=== PATIENT | male | born 1940 | race Caucasian/White ===

== ENCOUNTER 2019-07-27 18:29 | Inpatient (IN) | payer OTHER ==
[~2019-07-27] VITALS: Ht 170.2 cm; Wt 81.2 kg
[~2019-07-27 18:29] MED LIST: ASPIRIN81 M2 PO; FISH OIL 1,0001 EAC5 PO; GLUCOPHAGE500 MG PO; MULTIVITAMINS PO; PRAVASTATIN SOD20 MG PO; PRILOSEC 20 MG20 MG PO
[2019-07-27 18:39] VITALS: BP 129/51
[2019-07-27 19:02] LABS: URINE BLOOD 1+ (Negative); URINE CLARITY CLEAR; URINE COLOR YELLOW; URINE GLUCOSE-RANDOM* NEGATIVE (Negative); URINE KETONES TRACE (Negative); URINE LEUKOCYTES-REFLEX NEGATIVE (Negative); URINE NITRITE-REFLEX NEGATIVE (Negative); URINE PROTEIN (DIPSTICK) 1+ (Negative); URINE SPECIFIC GRAVITY 1.025 (1.005-1.035); URINE UROBILINOGEN 0.2 E.U./dl (0.2-1.0)
[2019-07-27 19:05] LABS: ICTOTEST (BILI CONFIRMATORY) Negative (Negative); URINE BILIRUBIN NEGATIVE (Negative)
[2019-07-27 19:13] LABS: SQUAMOUS None Seen /LPF (0-3); URINE RBC 0-2 Rare /HPF (0-2); URINE WBC-REFLEX 0-5 Rare /HPF (0-5)
[2019-07-27 19:14] LABS: FINE GRANULAR CASTS 0-3 Few /LPF (None Seen); HYALINE CASTS 0-3 Few /LPF (None Seen)
[2019-07-27 19:25] LABS: CRYSTALS None Seen /LPF (None Seen)
[2019-07-27 20:00] LABS: HEMATOCRIT 29.3 % (42.0-52.0); HEMOGLOBIN 9.6 gm/dL (14.0-18.0); MCH 30.4 pg (26.0-34.0); MCHC 32.7 g/dL (28.0-37.0); MCV 92.9 fL (80.0-100.0); PLATELET COUNT 418 thou/uL (150-400); RBC 3.16 mil/uL (4.50-6.00); RDW 13.9 % (10.5-14.5)
[2019-07-27 20:15] LABS: CALCIUM 9.3 mg/dL (8.5-10.1); CREATININE 2.3 mg/dL (0.7-1.3); POTASSIUM 4.2 mmol/L (3.5-5.1)
[2019-07-27 20:18] LABS: ALBUMIN 2.5 g/dL (3.4-5.0); TOTAL BILIRUBIN 0.6 mg/dL (<0.1-1.0); TOTAL PROTEIN 7.1 g/dL (6.4-8.2)
[2019-07-27 20:20] LABS: ABSOLUTE NEUTROPHILS 7.4 thou/uL (1.4-8.2)
[2019-07-27 22:45] VITALS: BP 125/56
[2019-07-27 23:00] VITALS: BP 134/64
[2019-07-27] MEDS ORDERED: PROTONIX40 M2 PO (23:42)
[2019-07-27] MEDS ORDERED: FLOMAX0.4 MG PO ×2 (23:44→23:45)
[2019-07-27] MEDS ORDERED: GLIMEPIRIDE1 MG PO (23:45)
[2019-07-27] MEDS ORDERED: AVAPRO 150 MG150 M1 PO (23:46)
[2019-07-27] MEDS ORDERED: TRAZODONE HCL50 MG PO (23:47)
[2019-07-27] MEDS ORDERED: VITAMIN D250 MCG PO (23:49)
[2019-07-28] VITALS (9 sets, daily range): BP systolic 102–153; BP diastolic 50–71
--- NOTE | 2019-07-28 04:24 | NUR ---
PT. ARRIVED AT FLOOR AROUND 2300; AOX4; ABLE TO AMBULATE FROM STRETCHER TO BED WITH ASSISTANCE; LIMPING; ST. NOT USING CANE OR WALKER AT HOME TO AMBULATE; EXPLAINED LIMPING IS DUE TO PAIN OVER L. ANKLE PAIN; ASSESSMENT & ADMISSION PERFORMED; HOME MED UPDATE; ANSWER BACK "NO" WHEN ASKED IF HAVE ANY PAIN; HS MEDICATION GIVEN; ON ISOLATION; PT. ABLE TO REST WITH EYES CLOSED AFTER 0100; MONITORING; ASSESSMENT CHARGED; FOLLOWING POC; WILL PASS ON REPORT.
[2019-07-28 06:34] LABS: HEMATOCRIT 27.6 % (42.0-52.0); MCH 30.5 pg (26.0-34.0); MCHC 32.6 g/dL (28.0-37.0); MCV 93.6 fL (80.0-100.0); RBC 2.95 mil/uL (4.50-6.00); RDW 13.9 % (10.5-14.5); WBC 8.9 thou/uL (4.0-11.0)
[2019-07-28 06:43] LABS: CALCIUM 8.5 mg/dL (8.5-10.1); POTASSIUM 3.7 mmol/L (3.5-5.1)
[2019-07-28 11:00] LABS: HEMATOCRIT 26.9 % (42.0-52.0)
--- NOTE | 2019-07-28 17:18 | NUR ---
ASSUMED CARE AT SHIFT CHANGE, ALERT AND ORIENTED X4. PATIENT HAD X3 LOOSE MUSCUSY AND BLOODY, SAMPLE SENT, AND MD NOTIFIED. C/O ABD PAIN AND MEDICATED NEEDED. HR 48-171, EKG WAS DONE AND DR ENGLAND CONSULTED AND NEW ORDERS RECIEVED. AND WILL CONTINUE WITH POC.
[2019-07-29] VITALS (8 sets, daily range): BP systolic 113–134; BP diastolic 39–79
--- NOTE | 2019-07-29 03:54 | NUR ---
RECEIVED PT'S CARE AROUND 193; PT. ON BED; AOX4; NO C/O PAIN; NO SOB; PULSE BELOW 100s; EPISODES OF INCREASE HR; PHYSICIANS AWARED; CARDIOLOGY ON BOARD; HEPARIN GTT RUNNING AT 11.99 UNITS/KG/HR; AROUND 194 PT'S HR INCREASE & SUSTAIN ON THE 140s; CARDIOLOGY CONTACTED; ORDERS RECEIVED; SBP ABOVE 100; NO C/O SOB; DIZZINESS; OR PALPITATIONS; CARDIZEM TYTRATE PER PROTOCOL; RE-ASSESMENT PT's HR ON THE 120s-140s; AROUND 2300 PT'S HR BETWEEN 100s-160s; FREQUENTLY EVENTS OF ST; HR ON THE 150s; CARDIOLOGY CONTACTED; ORDERS RECEIVED; CHECK CHARTING; AMIODARONE BOLUS STARTED; RE-ASSESSMENT PT'S HR BELOW 100s; HEPARIN TITRATE PER CHART; THROUGH THE NIGHT PT. DID NOT C/O SOB; PALPITATIONS OR DIZZINESS; AROUND 0400 PT'S HR ABOVE 100s; 110s- 120s; DOES NOT SUSTAIN; MONITORING; ASSESSMENT CHARGED; FOLLOWING POC; WILL PASS ON REPORT.
--- NOTE | 2019-07-29 11:40 | EKG ---
[address] [address] ELECTROCARDIOGRAM REPORT Name: RYAN SADLER Room #: 214-P ADM IN M.R.#: [id number] Admission: 07/27/19 Attend Phys: Lesli Greer Discharge: Date of : 38 Report #: [id number] THIS REPORT FOR: //name// 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 : 1940 Requested By: Lesli Greer Order Number: [id number] MD: Samy Boothe Measurements Intervals [place] Rate: 140 P: NE: QRS: -40 QRSD: 95 T: 115 QT: 285 QTc: 435 Interpretive Statements Atrial fibrillation with rapid V-rate Left axis deviation Repolarization abnormality, prob rate related Compared to ECG 09/11/2012 06:50:17 Left-axis deviation now present Early repolarization now present Sinus rhythm no longer present Sinus arrhythmia no longer present Electronically Signed On 07-29-2019 11:40:27 CDT by Samy Boothe [email or web address] <ELECTRONICALLY SIGNED> By: Samy Boothe MD 07/29/19 1140 1637 1637 Samy Boothe MD /EPI
--- NOTE | 2019-07-29 14:14 | NUR ---
ASSUMED CARE AT SHIFT CHANGE, ALERT AND ORIENTED X4. HR REMAINS 70-140/ MIN AND PATIENT REMAINS ON AMIO AND HEPARIN DRIP. PATIENT C/O PAIN TO LOWER BACK AND RT LEG PAIN MEDICATED, VSS CHARTED AND WILL CONTINUE WITH POC.
[2019-07-30] VITALS (7 sets, daily range): BP systolic 80–103; BP diastolic 47–54
--- NOTE | 2019-07-30 04:07 | NUR ---
ASSUMED PT CARE AROUND 1900. A&OX4. VERY PLEASANT AND COOPERATIVE. C/O LEFT KNEE PAIN. TYLENOL GIVEN AT BEDTIME WITH SOME RELIEF. UP TO BSC A COUPLE TIMES DURING THE NIGHT. TOLERATED WELL. HEPARIN GTT INFUSING PER PROTOCOL. AMIODARONE GTT INFUSED UNTIL AROUND 0130 WHEN PT'S HR DROPPED TO 30S-50S. NOTIFIED DR ENGLAND. AMIODARONE GTT ON HOLD PER DR BARTHOLOMEW. BP STABLE. PT SLEPT MOST OF THE NIGHT. RESP EVEN AND UNLABORED. FALL PRECAUTIONS IN PLACE. PROGRESSING SLOWLY TOWARD POC GOALS. WILL CONTINUE TO MONITOR FURTHER.
[2019-07-30 05:07] LABS: HEMATOCRIT 24.2 % (42.0-52.0); HEMOGLOBIN 8.1 gm/dL (14.0-18.0); MCH 31.6 pg (26.0-34.0); MCHC 33.5 g/dL (28.0-37.0); MCV 94.4 fL (80.0-100.0); RBC 2.57 mil/uL (4.50-6.00); RDW 14.3 % (10.5-14.5); WBC 9.1 thou/uL (4.0-11.0)
[2019-07-30 05:14] LABS: ALBUMIN 1.9 g/dL (3.4-5.0); CALCIUM 8.1 mg/dL (8.5-10.1); POTASSIUM 4.1 mmol/L (3.5-5.1)
--- NOTE | 2019-07-30 07:54 | HC ---
[facility] [address] CONSULTATION Name: RYAN SADLER Room #: 214-P [facility] IN M.R.#: [id number] Admission: 07/27/19 Attend Phys: Lesli Greer Discharge: Date of : 38 Report #: [id number] THIS REPORT FOR: //name// CC: Lesli Bellamy CARDIOLOGY CONSULT INDICATION: Atrial fibrillation. HISTORY OF PRESENT ILLNESS: This is an 79-year-old gentleman with a history of diabetes mellitus, hypertension, hypercholesterolemia, presenting with 1 week duration of abdominal discomfort. He reports having mid to lower abdominal pain for the past 1 week. He also describes a recent onset of diarrhea, 3-4 episodes per day. The patient denies any history of chest pain, dyspnea, nausea or orthopnea. He was noted to have a temperature several days ago. His CT evaluation is suggestive for diverticulitis. ALLERGIES: PENICILLIN. HOME MEDICATIONS: Include Pravachol 20 mg daily, Glucophage, Protonix, tamsulosin, glimepiride, Avapro 150 daily, and Desyrel. SOCIAL HISTORY: Negative for tobacco use. FAMILY HISTORY: Negative for premature CAD. PAST MEDICAL HISTORY: Diabetes, hypertension, hypercholesterolemia. Denies any history of CVA, AFib or NE. REVIEW OF SYSTEMS: A full 10-point review of systems performed. Only the pertinent positives and negatives are described in the HPI. PHYSICAL EXAMINATION: VITAL SIGNS: Blood pressure 120/60, heart rate is 90 beats per minute. GENERAL APPEARANCE: This is a well-developed, well-nourished male, in no acute distress. HEENT: Normocephalic, atraumatic. NECK: Supple. LUNGS: CTA. CARDIAC: Regular rate and rhythm. S1, S2 positive. ABDOMEN: Soft, nontender. EXTREMITIES: Trace edema. No cyanosis. ECG today reveals atrial fibrillation with a rapid rate, nonspecific ST segment abnormality. [facility] [address] [place] [address] CONSULTATION Name: RYAN SADLER Room #: 214-P ADM IN [facility]#: [id number] Admission: 07/27/19 Attend Phys: Lesli Greer Discharge: Date of : 38 Report #: [id number] LABORATORY VALUES: Hemoglobin is 9.0. C. diff is negative. Sodium is 133, creatinine is 2.0. ASSESSMENT AND PLAN: 1. Atrial fibrillation with a rapid ventricular rate, on the monitor, he has had multiple episodes of paroxysmal atrial fibrillation, converted to sinus rhythm. Interestingly, when the heart rate is greater than 170 beats per minute, he is still clinically asymptomatic. Given his frequent episodes within 24-hour period, we will try to maintain sinus rhythm with amiodarone. He has an elevated CHADS score and anticoagulation is recommended. He does have bloody stools, await clearance from Gastroenterology. He will need an echocardiogram and ischemic evaluation. 3. Abdominal pain/diverticulitis, continue with antibiotics and hydration as per Gastroenterology. 4. Hypertension, stable blood pressure. 5. Diabetes mellitus, check fingersticks and treat appropriately. 6. Acute kidney injury, creatinine of 2.0. Continue with hydration. <ELECTRONICALLY SIGNED> By: Samy Boothe MD 07/30/19 0754 1719 1416 Samy Boothe MD /nt
[2019-07-30 13:23] LABS: HEMATOCRIT 25.3 % (42.0-52.0); HEMOGLOBIN 8.2 gm/dL (14.0-18.0); MCH 30.5 pg (26.0-34.0); MCHC 32.4 g/dL (28.0-37.0); MCV 94.3 fL (80.0-100.0); RBC 2.69 mil/uL (4.50-6.00); RDW 14.4 % (10.5-14.5); WBC 8.2 thou/uL (4.0-11.0)
--- NOTE | 2019-07-30 15:04 | 2DMMODE ---
[facility] [address] [place] [address] 2 D/M-MODE ECHOCARDIOGRAM Name: RYAN SADLER Room #: 214-P [facility] IN ..#: [id number] Admission: 07/27/19 Attend Phys: Lesli Calzada Discharge: Date of : 38 Report #: [id number] THIS REPORT FOR: //name// APPROVED REPORT Study performed: 07/30/2019 13:24:58 EXAM: Comprehensive 2D, Doppler, and color-flow Echocardiogram Patient Location: Bedside Room #: 214 Status: routine BSA: 1.87 HR: 52 bpm BP: 80/52 mmHg Rhythm: Atrial Fibrillation Other Information Study Quality: Adequate Indications Diabetes Atrial Fibrillation Hypertension/HDD 2D Dimensions RVDd: 32.08 mm IVSd: 10.72 (7-11mm) LVOT Diam: 21.22 (18-24mm) LVDd: 44.27 mm PWd: 10.07 (7-11mm) Ascending Ao: 42.63 (22-36mm) LVDs: 27.01 (25-40mm) Aortic Root: 39.22 mm IVC: 26.00 mm Volumes Left Atrial Volume (Systole) Single Plane 4CH: 74.21 mL Single Plane 2CH: 53.32 mL LA ESV Index: 37.00 mL/m2 Aortic Valve AoV Peak Pako.: 1.40 m/s AO Peak Gr.: 7.82 mmHg LVOT Max P.78 mmHg LVOT Max V: 0.97 m/s ANTHONY Vmax: 2.46 cm2 Pulmonary Valve PV Peak Pako.: 0.89 m/s PV Peak Gr.: 3.19 mmHg [facility] [address] [place] [address] 2 D/M-MODE ECHOCARDIOGRAM Name: RYAN SADLER Room #: 214-P ADM IN [facility]#: [id number] Admission: 07/27/19 Attend Phys: Lesli Calzada Discharge: Date of : 38 Report #: [id number] Tricuspid Valve TR Peak Pako.: 2.77 m/s TR Peak Gr.: 30.62 mmHg PA Pressure: 41.00 mmHg Left Ventricle The left ventricle is normal size. There is normal LV segmental wall motion. There is normal left ventricular wall thickness. The left ventricular systolic function is normal. The left ventricular ejection fraction is within the normal range. LVEF is 60-65%. Grade II - pseudonormal filling dynamics. Right Ventricle The right ventricle is normal size. The right ventricular systolic function is normal. Atria Left atrium is dilated. Right atrium is at the upper limits of normal. Aortic Valve The aortic valve is normal in structure. Trace aortic regurgitation. There is no aortic valvular stenosis. Mitral Valve The mitral valve is normal in structure. Mild mitral regurgitation. No evidence of mitral valve stenosis. Tricuspid Valve The tricuspid valve is normal in structure. There is mild tricuspid regurgitation. Estimated PAP 41 mmHg. There is mild-moderate pulmonary hypertension. Pulmonic Valve The pulmonary valve is normal in structure. Trace pulmonic regurgitation. Great Vessels The aortic root is normal in size. IVC is dilated and collapses <50% with inspiration. Pericardium There is no pericardial effusion. <Conclusion> [facility] [address] [place] [address] 2 D/M-MODE ECHOCARDIOGRAM Name: RYAN SADLER [place] Room #: 214-P [facility] IN ..#: [id number] Admission: 07/27/19 Attend Phys: Lesli Calzada Discharge: Date of : 38 Report #: [id number] The left ventricle is normal size. There is normal left ventricular wall thickness. The left ventricular systolic function is normal. Grade II - pseudonormal filling dynamics. The right ventricle is normal size. Left atrium is dilated. Trace aortic regurgitation. Mild mitral regurgitation. There is mild tricuspid regurgitation. Estimated PAP 41 mmHg. <ELECTRONICALLY SIGNED> By: Samy Boothe MD 07/30/19 1504 1504 150 Samy Boothe MD /INF
--- NOTE | 2019-07-30 16:03 | NUR ---
ASSUMED CARE AT SHIFT CHANGE, ALERT AND ORIENTED X4. SB ON THE MONITOR AND DENIES ANY CP. BP SOFT AND AMI PO, AND IV DISCONTINUED PER DR ENGLAND INSTRUCTIONS. POOR APPETITE AND MEAT SPECIALIST CONSULTED. AND WILL CONTINUE WITH POC.
--- NOTE | 2019-07-30 18:32 | NUR ---
met with patient, friend present. Patient resides in home alone. All needs on one level. he cont to drive. Reports 2 years ago. He was using a walker with therapy today and reports he does not have at home. He repors interst in walker for home. Discussed HH care. patient with no preference and agreeable to [facility] care. PCP Dr Rene Bellamy. [facility] following
[2019-07-31 04:17] VITALS: BP 102/50
--- NOTE | 2019-07-31 04:32 | NUR ---
ALERT,ORIENTED.SINUS RHYTHM,SINUS SUSIE.LOW URINE OUTPUT.BLADDER SCANNED POST VOID.HOT WALKER IS AWARE.BEDTIME BLOOD GLUCOSE IS 155.SSI GIVEN.RESTING IN BED.IV FLUIDS INFUSING.WILL MONITOR AND CONTINUE POC.
[2019-07-31 06:03] LABS: HEMATOCRIT 24.9 % (42.0-52.0); HEMOGLOBIN 8.3 gm/dL (14.0-18.0); MCHC 33.1 g/dL (28.0-37.0); MCV 93.6 fL (80.0-100.0); RBC 2.66 mil/uL (4.50-6.00); RDW 14.6 % (10.5-14.5); WBC 8.4 thou/uL (4.0-11.0)
[2019-07-31 06:21] LABS: CREATININE 2.7 mg/dL (0.7-1.3); PHOSPHORUS 3.9 mg/dL (2.5-4.9); POTASSIUM 4.1 mmol/L (3.5-5.1)
[2019-07-31 08:37] VITALS: BP 106/52
[2019-07-31 12:26] VITALS: BP 103/45
[2019-07-31 12:29] VITALS: BP 103/45
--- NOTE | 2019-07-31 12:30 | NUR ---
FAXED REFERRAL TO [facility] SPOKE WITH GONZALO IN INTAKE SHE RECEIVED REFERRAL AND CAN ACCEPT AT DISCHARGE. DP TO FOLLOW.
[2019-07-31 16:00] VITALS: BP 118/58
--- NOTE | 2019-07-31 20:00 | NUR ---
ASSEMENT CHARTED. ALERT AND ORIENTED X4. PATIENT WAS GIVEN 2L FLUID BOLUS AND URINE OUTPUT REMAINS SCANT (350CC). MEDICATED FOR PAIN INDICATED. WALKED THE HALLWAYS X2 WITH SB ASSIST. AND WILL CONTINUE WITH POC.
[2019-07-31 20:48] VITALS: BP 108/66
[2019-08-01 04:55] VITALS: BP 120/60
[2019-08-01 05:23] LABS: HEMATOCRIT 23.5 % (42.0-52.0); HEMOGLOBIN 7.7 gm/dL (14.0-18.0); MCH 30.7 pg (26.0-34.0); MCV 93.2 fL (80.0-100.0); RBC 2.52 mil/uL (4.50-6.00); RDW 14.2 % (10.5-14.5); WBC 9.4 thou/uL (4.0-11.0)
[2019-08-01 05:32] LABS: ALBUMIN 1.8 g/dL (3.4-5.0); CALCIUM 7.9 mg/dL (8.5-10.1); CREATININE 2.6 mg/dL (0.7-1.3); PHOSPHORUS 3.1 mg/dL (2.5-4.9); POTASSIUM 3.9 mmol/L (3.5-5.1)
--- NOTE | 2019-08-01 05:41 | NUR ---
A/O X 3.PAIN FAIRLY CONTROLLED.URINE OUTPUT LOW.BLADDER SCAN SHOWS >350.CHIEF ACCOUNTANT WAS INFORMED AND SAID TO JUST MONITOR PATIENT URINARY OUTPUT SINCE HE'S VOIDING ANYWAY.SINUS RHYTHM.WILL MONITOR AND CONTINUE POC.
[2019-08-01 07:31] VITALS: BP 117/71
[2019-08-01 11:44] VITALS: BP 118/62
[2019-08-01 16:06] LABS: IgA 268 mg/dL (61-437); IgG 1201 mg/dL (700-1600); IgM 132 mg/dL (15-143)
[2019-08-01 16:58] VITALS: BP 116/68
--- NOTE | 2019-08-01 18:06 | NUR ---
ASSESSMENT CHARTED. PT ALERT AND ORIENTED. RECEIVED PRN PAIN MED WITH PARTIAL RELIEF. HAD HIGH HR THIS AFTERNOON. MAR PALMER NOTIFIED. ORDERS RECEIVED. WILL CONTINUE TO MONITOR.
[2019-08-01 19:45] VITALS: BP 136/66
[2019-08-02 03:57] VITALS: BP 122/55
[2019-08-02 05:38] LABS: HEMOGLOBIN 7.8 gm/dL (14.0-18.0); MCHC 33.6 g/dL (28.0-37.0); MCV 92.3 fL (80.0-100.0); RBC 2.5 mil/uL (4.50-6.00); RDW 14.3 % (10.5-14.5); WBC 10.1 thou/uL (4.0-11.0)
[2019-08-02 06:02] LABS: ALBUMIN 1.7 g/dL (3.4-5.0); CALCIUM 7.7 mg/dL (8.5-10.1); MAGNESIUM 1.6 mg/dL (1.8-2.4); PHOSPHORUS 2.8 mg/dL (2.5-4.9)
[2019-08-02 08:01] VITALS: BP 130/62
--- NOTE | 2019-08-02 08:24 | NUR ---
ASSUME CARE 1900. PT/VITALS STABLE. COMPLAINS OF GENERALIZED WEAKNESS WITH PAIN IN BILAERAL ANKLES. EDEMA NOTED IN WILBERTO FEET AND ANKLES. ASSESSMENT CHARTED. PROGRESSING SLOWLY WITH POC. MODERATE URINE OUTPUT. LARGE BM NOTED THIS AM. PLAN IS TO CONTINUE ON LOW FIBER DIET, MONIOR BLOOD SUGAR, AND CONTINUE ON ABX. WILL CONTINUE TO MONITOR AND FOLLOW WITH POC
[2019-08-02 11:31] VITALS: BP 131/71
[2019-08-02 13:11] LABS: URIC ACID* 7.4 mg/dL (2.6-7.2)
[2019-08-02 16:09] LABS: KAPPA FREE LIGHT CHAINS 107.3 mg/L (3.3-19.4); KAPPA/LAMBDA RATIO 1.3 (0.26-1.65); LAMBDA FREE LIGHT CHAINS 82.6 mg/L (5.7-26.3)
--- NOTE | 2019-08-02 16:13 | NUR ---
ASSESSMENTS AND INTERVENTIONS DOCCUMENTED. PATIENT COMPLAINING OF ANKLE SWELLING. HAYES SEEING PATIENT AND CONSULT PLACED FOR ORTHOPEDICS. PATIENT EDUCATED ON PLAN OF CARE. PATIENT REMAINS TO REST WITH NO CONCERNS.
--- NOTE | 2019-08-02 16:26 | EKG ---
[address] [address] ELECTROCARDIOGRAM REPORT Name: MARY SADLERMarbin Samano Room #: 214-P ADM IN M.R.#: [id number] Admission: 07/27/19 Attend Phys: Lesli Greer Discharge: Date of : 38 Report #: [id number] THIS REPORT FOR: //name// [facility] Test Date: 2019-08-01 Test Time: 17:13:52 Pat Name: RYAN SADLER Department: Room: 214 P Gender: M Nurse: Josh VIDES : 1940 Requested By: Nalini Huffman Order Number: [id number] MD: Tommie Cope Measurements Intervals [place] Rate: 124 P: 247 NM: 86 QRS: -19 QRSD: 99 T: 102 QT: 319 QTc: 459 Interpretive Statements Atrial fibrillation Isolated pvc Electronically Signed On 08-02-2019 16:26:13 CDT by Tommie Cope [email or web address] <ELECTRONICALLY SIGNED> By: Tommie Cope MD 08/02/19 1626 1713 1713 Tommie Cope MD /TOO
[2019-08-02 16:59] VITALS: BP 122/61
[2019-08-02 17:31] VITALS: BP 112/58
[2019-08-02 21:18] VITALS: BP 129/62
[2019-08-03 04:55] VITALS: BP 122/62
--- NOTE | 2019-08-03 06:13 | NUR ---
ASSUME CARE 1900. PT/VITAL STABLE. INTERMITTTENT PAIN NOTED IN BLE WITH SEVERE SWELLING. ADEQUATE REST THROUGH THE NIGHT. SR/SA ON MONITOR WITH HR IS 70s. ASSESSMENT CHARTED. PROGRESSING MODERATELY WITH POC. PLAN IS TO CONTINUE WITH ABX AND CONSULT ORTHO FOR FURTHER EVAL OF SWELLING AND PAIN IN BILATERAL FEET AND ANKLE. WILL CONTINUE TO MONITOR ANF FOLLOW WITH POC
[2019-08-03 06:19] LABS: ALBUMIN 1.9 g/dL (3.4-5.0); CALCIUM 8.5 mg/dL (8.5-10.1); CREATININE 1.9 mg/dL (0.7-1.3); POTASSIUM 4.4 mmol/L (3.5-5.1); TOTAL BILIRUBIN 0.8 mg/dL (<0.1-1.0); TOTAL PROTEIN 5.9 g/dL (6.4-8.2)
[2019-08-03 08:50] VITALS: BP 142/87
[2019-08-03 11:43] VITALS: BP 154/71
[2019-08-03 14:09] LABS: GLOBULIN TOTAL 3.4 g/dL (2.2-3.9); M-SPIKE Not Observed g/dL (Not Observed)
--- NOTE | 2019-08-03 16:26 | NUR ---
SNF vs HH recommendation discussed with the pt at bedside. Pt agreeable due to le swelling and pain. Possible gout. [facility] list reviewed with the pt. He is interested in [facility] as a first choice. They can accept this weekend and submitted for ins auth. Pt is aware that insurance may not respond until Tuesday. Will follow.
[2019-08-03 17:29] VITALS: BP 134/83
--- NOTE | 2019-08-03 19:17 | HC ---
[facility] [place] [address] [place] [address] CONSULTATION Name: RYAN SADLER Room #: 214-P [facility] IN M.R.#: [id number] Admission: 07/27/19 Attend Phys: Lesli Greer Discharge: Date of : 38 Report #: [id number] THIS REPORT FOR: //name// CC: Lesli Bellamy DATE OF SERVICE: 08/02/2019 INFECTIOUS DISEASE CONSULTATION REASON FOR CONSULTATION: I was asked to evaluate concerning arthritis and possible infectious etiology. HISTORY OF PRESENT ILLNESS: This is an 79-year-old underlying history of diabetes, hypertension, who was admitted through the Emergency Room with lower abdominal pain for over a week. It had worsened significantly over the past 3 days, associated with diarrhea. He had no blood in his stool. No nausea or vomiting. Pain got very bad up to a 10/10. He had temperature up to 101 degrees. He notes over the last month, he has been anorexic. He has lost weight. Has had no other GI-reported illnesses. Denies any dysuria or frequency. He has had no blood in his stool or urine. He does have some degenerative arthritis complains. He has had low back pain and was scheduled to have MRI scan. Actually, during the MRI evaluation, he was noted to have fever and that prompted further investigation. Since his hospital stay, his abdominal discomfort has resolved. He still has loose stools. Back pain remains about the same. No cough or sputum production. He has developed pain and swelling in his knees, ankles and feet, which has progressed over the last 48 hours. He has been treated with ciprofloxacin and metronidazole for his diverticular disease. He does report PENICILLIN, reaction where he passed out, although he does report that he has taken amoxicillin without issue since that event 40 years ago. MEDICATIONS: As noted on his MAR, which were reviewed including the ciprofloxacin and metronidazole. Prior to his admission, he was on pravastatin, Protonix, tamsulosin, glimepiride, Avapro, Desyrel, vitamin D and fish oil. PAST MEDICAL HISTORY: Hypertension, diabetes, hyperlipidemia, gastroesophageal reflux, bladder outlet obstructive disease. FAMILY HISTORY: Noncontributory. SOCIAL HISTORY: Nonsmoker, no significant alcohol intake. He is a for past 2 years. REVIEW OF SYSTEMS: Ten-point review was negative other than what has been described above. During his hospital stay, he developed acute renal failure. He also was diagnosed with atrial fibrillation and Cardiology service has been [address] [address] CONSULTATION Name: RYAN SADLER Room #: 214-P [facility] IN [facility].#: [id number] Admission: 07/27/19 Attend Phys: Lesli Greer Discharge: Date of : 38 Report #: [id number] assisting in his care. PHYSICAL EXAMINATION: VITAL SIGNS: He is afebrile and hemodynamically stable. He was alert and cooperative. Temperature was 37 degrees, pulse 72, blood pressure 131/71. GENERAL: He had 2+ anasarca. It is noted that he developed acute renal failure and atrial fibrillation during his hospital stay. No rashes or decubiti noted. No palpable adenopathy. EYES: Without scleral icterus. MOUTH: Without mucositis. NECK: Supple. LUNGS: Clear. HEART: Regular, without murmur, gallop or rub. ABDOMEN: Soft, nontender, no hepatosplenomegaly or mass. GENITOURINARY: External genitalia without lesion, although he was edematous. RECTAL: Not performed. EXTREMITIES: With effusion in both knees. He had limited range of motion. Mild tenderness. There is no erythema or warmth. Both ankles were swollen and mildly erythematous and warm to the touch. They were tender to palpation, with limited range of motion. He had tenderness to his mid feet bilaterally. Not much tenderness in his MCP joints. His arms, including shoulders, elbows and wrists, were unremarkable. He had mild back tenderness to the mid lower spine region. NEUROLOGIC: Cranial nerves were intact. Strength in his upper and lower extremities was normal, with sensation intact. Mood was normal LABORATORY STUDIES: Blood cultures are negative. Sodium 131, potassium 4, bicarbonate of 16, creatinine 2. Hemoglobin 7.8, WBC 10, platelet count 365,000. Immunoelectrophoresis is pending. IgG was 1200, IgA 268, IgM 132. Stool culture was negative. Urine culture, no growth. IMPRESSION: 1. 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 Still possible this could be crystal in etiology. Doubt primary infection, although post-infectious is considered. 2. Diverticulitis, improved. 3. Acute kidney injury. 4. Diabetes. 5. Atrial fibrillation. 6. Hypertension. 7. Anemia. 8. Doubt he has a true PENICILLIN allergy considering he tolerates amoxicillin. RECOMMENDATIONS: We will change from ciprofloxacin and continue with cefdinir plus metronidazole for his diverticular disease. We will check serologic [facility] [address] [place] [address] CONSULTATION Name: RYAN SADLER Room #: 214-P [facility] IN M.R.#: [id number] Admission: 07/27/19 Attend Phys: Lesli Greer Discharge: Date of : 38 Report #: [id number] studies, uric acid. Can tap his knee for evaluation for crystals and will treat with anti-inflammatory therapy. Case was discussed with attending. <ELECTRONICALLY SIGNED> By: Jayesh Fierro MD 08/03/19 1917 1253 0218 Jayesh Fierro MD /nt
[2019-08-03 20:00] VITALS: BP 106/65
[2019-08-03 20:13] VITALS: BP 108/65
--- NOTE | 2019-08-03 20:18 | NUR ---
ASSUMED CARE PT AT SHIFT CHANGE. ASSESSMENTS CHARTED. MEDS GIVEN PER DEC. PT ALERT AND ORIENTED, VSS, C/O PAIN BLE, PAIN MEDS GIVEN PER DEC. O2 SATS WNL ON ROOM AIR. AT APPROX 1500 PT HR AFIB RVR, DR ENGLAND NOTIFIED, ORDERS RECEIVED FOR AMIO BOLUS AND AMIO DRIP PER PROTOCOL. HEART RATE MANAGED. AT APPROX 1730 HR AFIB RVR AGAIN, SUSTAINING 130S-140S, WITH SHORTNESS OF BREATH. 3L O2 PUT ON PT TO EASE BREATHING WITH RELIEF. CARDIOLOGY NOTIFIED, ORDERS RECEIVED PER DR BOLES FOR ANOTHER AMIO BOLUS AND 5MG IV LOPRESSOR, AND CONTINUE WITH AMIO AFTER. HR BELOW 120 FOLLOWING AMIO BOLUS, METOPROLOL HELD PER PARAMETERS, NIGHT NURSE NOTIFIED. PT SEEN BY DR HARDING THIS SHIFT, RIGHT KNEE JOINT AND LEFT ANKLE ASPIRATED FOR FLUID AND SENT TO LAB. PT CURRENTLY RESTING COMFORTABLY IN BED. REPORT PASSED ON TO NIGHT NURSE.
[2019-08-04 04:45] VITALS: BP 99/65
[2019-08-04 04:55] VITALS: BP 98/71
--- NOTE | 2019-08-04 05:24 | NUR ---
ASSUMED PT CARE AT 1900. PT WAS SLEEPING AND WHEN AWAKENED HAD NO C/O PAIN. AMIO DRIP WAS CONT AT HALF OF DOSE PER ORDER. GAVE LOPRESSOR PER ORDER. PT CONVERTED TO SB AROUND [id number]. PT STAYED SUSIE THRU NIGHT AND THEN CONVERTED BACK TO AFIB. PT C/O NO PAIN STILL AND VSS. WILL CONTINUE TO MONITOR PER POC.
[2019-08-04 07:26] LABS: ALBUMIN 1.7 g/dL (3.4-5.0); CALCIUM 8.4 mg/dL (8.5-10.1); CREATININE 1.8 mg/dL (0.7-1.3); PHOSPHORUS 3.6 mg/dL (2.5-4.9); POTASSIUM 4.8 mmol/L (3.5-5.1)
[2019-08-04 08:00] VITALS: BP 115/80
--- NOTE | 2019-08-04 17:00 | NUR ---
PT CARE ASSUMED APPROX 0700. ASSESSMENT CHARTED. PT DENIES PAIN AND SOA. HR BETWEEN 40s AND 110s, SR AND AFIB RVR. MEDICINE INTERVENTIONS MANAGING. AMIO GTT STOPPED EARLIER WHEN PT CONVERTED TO SR. REMAINS SR/SB AT THIS TIME. NEW ORDERS FROM DR BOLES GIVEN TO DC GTT. PT ASYMPTOMATIC ALL SHIFT OF SUSIE AND TACHYCARDIA. VS OTHERWISE STABLE. PT UP TO CHAIR WITH MOD ASSIST. PT REPORTS FEELING WEAKER THAN USUAL. BS ELEVATED. POC UPDATED FOR BETTER MANAGEMENT OF HYPERGLYCEMIA. PT DENIES QUESTIONS AND CONCERNS REGARDING POC. NO DISTRESS NOTED.
[2019-08-04 20:57] VITALS: BP 110/53
[2019-08-05 05:00] VITALS: BP 127/54
[2019-08-05 05:14] LABS: ALBUMIN 1.7 g/dL (3.4-5.0); CALCIUM 8.4 mg/dL (8.5-10.1); CREATININE 1.7 mg/dL (0.7-1.3); POTASSIUM 3.9 mmol/L (3.5-5.1)
--- NOTE | 2019-08-05 05:50 | NUR ---
ASSUMED CARE AT 1900. PT ALERT AND ORIENTED. REPORTS RELIEF IN ANKLE PAIN. NO EPISODE OF ABDOMINAL PAIN. PT SINUS SUSIE MOST OF THE NIGHT, RATE IN 50S. DENIES DIZZINESS,SOA, NAUSEA, VOMITING. NO CHEST PAIN REPORTED. OTHER ASSESSMENTS DOCUMENTED. NO FURTHER CONCERNS AT THIS TIME . WILL CONTINUE TO MONITOR.
[2019-08-05 09:27] VITALS: BP 127/59
[2019-08-05 12:28] VITALS: BP 94/56
[2019-08-05 15:50] VITALS: BP 113/65
--- NOTE | 2019-08-05 16:52 | NUR ---
PT CARE ASSUMED APPROX 0700. ASSESSMENT CHARTED. PT DENIES SOA. O2 WEANING HAS BEEN TOLERABLE FOR PT. REPORTS PAIN IN LOWER BACK 5/10. REPORTS ADEQUATE PAIN MANAGEMENT WITH TYLENOL. VSS. BS ELEVATED. MANAGING WITH SSI. WILL CONTINUE TO MONITOR. PT UP TO CHAIR PART OF SHIFT. POLITELY REFUSES TO AMBULATE. DENIES QUESTIONS OR CONCERNS REGARDING POC. NO DISTRESS NOTED.
[2019-08-05 20:15] VITALS: BP 132/62
[2019-08-05 21:07] LABS: HEMATOCRIT 23.6 % (42.0-52.0); HEMOGLOBIN 7.7 gm/dL (14.0-18.0); MCH 30.1 pg (26.0-34.0); MCHC 32.7 g/dL (28.0-37.0); MCV 92.2 fL (80.0-100.0); RBC 2.56 mil/uL (4.50-6.00); RDW 14.9 % (10.5-14.5); WBC 6.4 thou/uL (4.0-11.0)
[2019-08-05 21:20] LABS: CALCIUM 8.4 mg/dL (8.5-10.1); CREATININE 1.7 mg/dL (0.7-1.3); MAGNESIUM 1.8 mg/dL (1.8-2.4); POTASSIUM 4.2 mmol/L (3.5-5.1)
[2019-08-06] VITALS (7 sets, daily range): BP systolic 105–132; BP diastolic 49–75
[2019-08-06 05:47] LABS: HEMATOCRIT 25.6 % (42.0-52.0); HEMOGLOBIN 8.5 gm/dL (14.0-18.0); MCH 30.4 pg (26.0-34.0); MCHC 33.1 g/dL (28.0-37.0); MCV 91.8 fL (80.0-100.0); RBC 2.79 mil/uL (4.50-6.00); WBC 6.9 thou/uL (4.0-11.0)
[2019-08-06 06:21] LABS: ALBUMIN 1.8 g/dL (3.4-5.0); CALCIUM 8.5 mg/dL (8.5-10.1); CREATININE 1.6 mg/dL (0.7-1.3); MAGNESIUM 1.7 mg/dL (1.8-2.4); PHOSPHORUS 2.9 mg/dL (2.5-4.9)
--- NOTE | 2019-08-06 07:55 | NUR ---
PT ALERT AND ORIENTED. REPORTS BACK PAIN. TYLENOL NEEDED GIVEN. PT WENT INTO SINUS TACH DURING THE NIGHT. 5MG IV LOPRESSOR GIVEN. PT HR WAS AROUND 113 WHEN HE SUDDENLY DROPPED INTO 40s. ASYMPTOMATIC. EKG ORDERED FOR THIS MORNING. TYLENOL GIVEN FOR BACK PAIN. AM SHIFT NOTIFIED ABOUT PT CONDITION. WILL CONTINUE TO MONITOR.
--- NOTE | 2019-08-06 09:17 | HC ---
[facility] [place] [place] [address] CONSULTATION Name: RYAN SADLER [place] Room #: 214-P [facility] IN ..#: [id number] Admission: 07/27/19 Attend Phys: Lesli Greer Discharge: Date of : 38 Report #: [id number] THIS REPORT FOR: //name// CC: Lesli Bellamy DATE OF SERVICE: 08/05/2019 CONSULTING PHYSICIAN: Dr. Barrera. REASON FOR CONSULTATION: Uncontrolled type 2 diabetes mellitus. HISTORY OF PRESENT ILLNESS: This is an 79-year-old male patient who was admitted on 07/27/2019 with progressive complaints of diarrhea, a dull achy abdominal pain that was severe at the time of presentation and was later found to have diverticulitis. The patient was admitted for further care and management. He is known to have type 2 diabetes mellitus and has had it for several years. The patient describes his home regimen to consist of metformin twice a day in addition to another oral agent that he could not name, but his chart indicates that he is on glimepiride as well. The patient notes that his blood glucose control is typically rather reasonable at home where he sees blood glucose values mostly in the low 100 mg/dL range without issues of hypoglycemia. The patient has not ever been placed on insulin therapy that he remembers. The patient is not aware of difficulties pertaining to diabetic retinopathy, nephropathy or neuropathy. He is not aware of heart disease or other vascular disease issues. Also, the patient's background is noted for hyperlipidemia, requiring the use of pravastatin at home in addition to hypertension that is treated with irbesartan. REVIEW OF SYSTEMS: CONSTITUTIONAL: Fatigue, tiredness, intermittent subjective fever and chills. HEENT: Negative for sore throat, sinus pain, ear drainage. PULMONARY: Occasional shortness of breath and cough, but no hemoptysis. CARDIAC: No chest pain, palpitations, lower extremity edema. GASTROINTESTINAL: As noted above, the patient has been dealing with difficulties pertaining to diverticulitis including having to experience the symptoms of abdominal pain, diarrhea. NEUROLOGY: Negative for loss of consciousness, seizure activity or headaches. DERMATOLOGY: Negative for skin rash, ulceration or other major abnormalities. PSYCHIATRIC: Negative for hallucinations, delusions. MUSCULOSKELETAL: Occasional joint and muscle aches. Otherwise, review of systems noncontributory other than those mentioned in HPI. [address] [address] CONSULTATION Name: RYAN SADLER Room #: 214-[facility] IN M.R.#: [id number] Admission: 07/27/19 Attend Phys: Lesli Greer Discharge: Date of : 38 Report #: [id number] PAST MEDICAL HISTORY: 1. Type 2 diabetes mellitus. 2. Hypertension. 3. Hyperlipidemia. 4. Benign prostatic hypertrophy. 5. Vitamin D deficiency. 6. Gastroesophageal reflux disease. PAST SURGICAL HISTORY: Right hand surgery. OUTPATIENT MEDICATIONS: Pravastatin 20 mg daily, metformin 500 mg q.p.m., pantoprazole 40 mg daily, Flomax 0.4 mg q.p.m., glimepiride 1 mg daily, irbesartan 150 mg daily, trazodone 50 mg at bedtime, ergocalciferol, vitamin D2 1.25 mcg daily, omega fatty 3 fatty acids 1000 mg daily. ALLERGIES: THE PATIENT IS ALLERGIC TO PENICILLIN. FAMILY HISTORY: Noncontributory. SOCIAL HISTORY: The patient is a , has 1 child. Denies use of tobacco, but drinks alcohol on weekends. PHYSICAL EXAMINATION: GENERAL: Pleasant male patient who is not in apparent pain or distress. VITAL SIGNS: Blood pressure is 94/56 mmHg, heart rate is 80 beats per minute, respirations 18 per minute, temperature 36.1 degrees. CONSTITUTIONAL: The patient appears comfortable, not in apparent distress. HEENT: Anicteric sclerae. Intact extraocular motions. NECK: Supple, without JVD, carotid bruits or lymphadenopathy. I do not appreciate thyromegaly. CHEST: Clear to auscultation with scattered rales. HEART: Regular rate and rhythm without murmurs or gallops. ABDOMEN: Soft and lax without tenderness or organomegaly. No guarding. Active bowel sounds. EXTREMITIES: Lower extremity exam, trace ankle edema. No skin breaks, ulcerations or other deformities. NEUROLOGIC: Awake, alert and oriented to time, place and person. The remainder of his examination is nonfocal. PSYCHIATRIC: Normal mood and affect. DERMATOLOGIC: No major skin breaks, ulcerations or other abnormalities. LABORATORY DATA: Blood glucose values over the patient's hospital stay have gradually risen during the first few days of his hospital stay. These were mostly in the mid to high 100 mg/dL range, but have recently gone on to [address] [address] CONSULTATION Name: RYAN SADLER Room #: 214-P ADM IN M.R.#: [id number] Admission: 07/27/19 Attend Phys: Lesli Greer Discharge: Date of : 38 Report #: [id number] consistently stay above 200 mg/dL all the way to the mid 300 mg/dL range. Sodium 131, potassium 3.9, chloride 102, CO2 of 21, anion gap 8, BUN 35, creatinine 1.7, which is improving compared to his initial of 2.7, AST 39, lipase 71, total bilirubin 0.8, calcium 8.4, phosphorus 3.0, magnesium 1.6, uric acid 7.4, alkaline phosphatase 178, ALT 27, total protein 5.9, albumin 1.7, GFR is 39, which has risen from an earlier low of 23. Lactic acid 1.9, CRP 215, hemoglobin 7.8, hematocrit 23, white blood count 10.1, platelets 365. TSH 1.148. Hemoglobin A1c is pending. ASSESSMENT AND PLAN: 1. Type 2 diabetes mellitus. As noted above, this is an established diagnosis for the patient, but it has certainly gotten worse since his presentation due to multiple factors in all likelihood including the cessation of his usual oral regimen as well as the active stress of his infection and limited physical activity. In the presence of these factors and issues, and in view of his quite limiting renal insufficiency rating at stage 3B to 4, I would rather utilize an insulin based regimen as we attempt to control his blood glucose better, the patient is already on Humalog supplemental scale coverage at a moderate scale with routine blood glucose monitoring, I will go on and add Lantus insulin to this coverage at a dose of 14 units daily to start today. Blood glucose monitoring will continue a.c. and at bedtime and further therapeutic adjustments will be made as necessary. Depending on his state at the time of discharge, we would have to consider whether or not the patient can continue to use metformin and other oral agents at home in view of his current kidney function status. 2. Hypertension. The patient's level of blood pressure control is actually tight over the past 24 hours, this is being managed by Hospital Medicine and Nephrology. 3. Hyperlipidemia. The patient is currently on atorvastatin therapy and tolerates it well. He is to continue the same. 4. Acute renal injury. This has been significant with the patient getting a GFR as low as 23 likely due to prerenal azotemia and this seems to be improving. Nephrology is following. 5. Paroxysmal atrial fibrillation. The patient has heart rate control and is followed by Cardiology. I certainly appreciate this consultation. <ELECTRONICALLY SIGNED> By: Elza Chan MD 08/06/19 0917 [id number] [id number] Elza Chan MD /nt
--- NOTE | 2019-08-06 14:25 | NUR ---
met with patient to discuss dc planning. Patient interested in [facility] he reports his was at [facility] in past and very good therapy. Sp with 5n liason regarding patients desire for acute rehab.
--- NOTE | 2019-08-06 17:10 | EKG ---
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 KENNEDY : 1940 Requested By: Samy Boothe Order Number: [id number] MD: Bridger Christy Measurements Intervals [place] Rate: 68 P: [place]: QRS: -10 QRSD: 106 T: 53 QT: 461 QTc: 491 Interpretive Statements Sinus rhythm with occasional ventricular premature complexes Abnormal R-wave progression, early transition Borderline prolonged QT interval Compared to ECG 08/01/2019 17:13:52 Atrial fibrillation is no longer present Electronically Signed On 08-06-2019 17:10:36 CDT by Bridger Christy [email or web address] <ELECTRONICALLY SIGNED> By: Bridger Christy MD, [facility] 08/06/19 1710 0802 [id number] Bridger Christy MD, [facility] /EPI
--- NOTE | 2019-08-06 19:30 | NUR ---
ASSUMED CARE AT SHIFT CHANGE, ALERT AND ORIENTED X4. HR 45-130/MIN AND S/B CARDIOLOGY TEAM. S/P PACE MAKER PLACEMENT, LT ARM IN SLING AND LT UPPER CHEST INCISION IS D/C/I. VSS AND FAMILY AT BEDSIDE POST PROCEDURE. AND WILL CONTINUE WITH POC.
[2019-08-07 04:55] VITALS: BP 116/65
[2019-08-07 04:59] LABS: ALBUMIN 1.8 g/dL (3.4-5.0); CALCIUM 7.9 mg/dL (8.5-10.1); CREATININE 1.6 mg/dL (0.7-1.3); PHOSPHORUS 2.7 mg/dL (2.5-4.9); POTASSIUM 3.8 mmol/L (3.5-5.1)
--- NOTE | 2019-08-07 05:00 | NUR ---
ASSUMED PT CARE AT 1900. PT IS ALERT AND ORIENTED. NO SIGN OF DISTRESS NOTED. PT HAS AN ARM IMMOBILIZER ON LEFT ARM DUE TO PACEMAKER PLACEMENT. PACEMAKER SITE INTACT. NO HEMATOMA OR BLEEDING NOTICED. ASSESSMENT COMPLETED AND DOCUMENTED. SCHEDULED MEDS ADMINISTERED TO PT. PT TOLERATED PO INTAKE. PAIN MED ADMINISTERED REQUESTERED BY PATIENT. NO FURTHER NEEDS AT THIS TIME.
[2019-08-07 07:07] LABS: GLYCOHEMOGLOBIN (HGB A1C) 6.8 % (4.8-5.6)
[2019-08-07 07:32] VITALS: BP 121/66
--- NOTE | 2019-08-07 08:39 | HC ---
[facility] [place] [address] [place] [address] CONSULTATION Name: RYAN SADLER Room #: 214-P [facility] IN M.R.#: [id number] Admission: 07/27/19 Attend Phys: Lesli Greer Discharge: Date of : 38 Report #: [id number] THIS REPORT FOR: //name// CC: Lesli Bellamy DATE OF SERVICE: 07/31/2019 REASON FOR CONSULTATION: Acute kidney injury. REASON FOR PRESENTATION: Abdominal pain. HISTORY OF PRESENT ILLNESS: This is an 79-year-old who presented on 07/27/2019 with abdominal pain and was found to have an acute diverticulitis event for which he was admitted and was managed appropriately by the hospitalist and the other team members. He had a creatinine value of 2.3 on his presentation. He is not really sure about his baseline kidney problems. He is not really sure about his baseline creatinine. Baseline medical problems include hypertension, hyperlipidemia and diabetes mellitus. He has never been told that he has kidney problems. He does have some prostate issues and is currently maintained on Flomax. The patient developed AFib with what seems to be RVR and hypotension. Creatinine has been since rising with the most recent creatinine value of 2.7. He continues to make small amount of urine. I am being consulted to manage his acute kidney injury. PAST MEDICAL HISTORY: 1. Hypertension. 2. Hyperlipidemia. 3. Diabetes mellitus. ALLERGIES: PENICILLIN. PAST SURGICAL HISTORY: Right hand surgery. MEDICATIONS: 1. Flomax. 2. Pravastatin. 3. Glimepiride. 4. Avapro. 5. Ergocalciferol. 6. Omeprazole. SOCIAL HISTORY: Denies drug or alcohol abuse. FAMILY HISTORY: Significant for hypertension. [facility] [address] [place] [address] CONSULTATION Name: RYAN SADLER Room #: 214-P [facility] IN M.R.#: [id number] Admission: 07/27/19 Attend Phys: Lesli Greer Discharge: Date of : 38 Report #: [id number] REVIEW OF SYSTEMS: GENERAL: Significant for weakness. CARDIOVASCULAR: No chest pain, but he did have some palpitation issues in the last few days. PULMONARY: No cough or hemoptysis. GASTROINTESTINAL: As per the history of present illness. GENITOURINARY: No frequency, no urgency, no voiding issues. NEUROLOGICAL: No headache, no dizziness. SKIN: No rash or ulcerations. PHYSICAL EXAMINATION: GENERAL: The patient is alert, oriented, in no apparent distress. VITAL SIGNS: Temperature is 36.6 and blood pressure is 106/52. HEAD AND NECK: No jugular venous distention, no bruit, no thyromegaly. CHEST: Decreased air entry bilaterally. CARDIOVASCULAR: No rub detected. Regular sinus rhythm. ABDOMEN: Mild tenderness, diffuse, mainly in the lower quadrants of his abdomen. LOWER EXTREMITIES: No edema. LABORATORY DATA: Reviewed. Sodium is 129, potassium is 4.1, BUN is 32 and creatinine is 2.7. Hemoglobin is down to 8.3 from 9. UA with +1 protein. IMPRESSION AND PLAN: 1. Acute kidney injury due to prerenal hypotension and azotemia. 2. Atrial fibrillation. 3. Diverticulitis. 4. Diabetes mellitus. 5. Basic workup for his acute kidney injury. This should rectify with IV fluid. 6. Avoid hypotension. 7. Bolus with IV fluid. 8. Scan his bladder. 9. Atrial fibrillation control per Cardiology. 10. Anemia is due to IV fluid and rehydration. However, I will obtain basic anemia workup. He is already followed by GI and had some extensive workup including colonoscopy 2-1/2 years ago. 11. Expect his renal function to completely recover in the next 24 hours. <ELECTRONICALLY SIGNED> By: Sarah Palacios MD 08/07/19 0839 0943 2224 Sarah Palacios MD /nt
[2019-08-07 11:40] VITALS: BP 127/56
[2019-08-07 13:10] LABS: ANA INTERPRETATION Negative (Negative)
[2019-08-07 15:56] VITALS: BP 113/56
[2019-08-07 16:08] VITALS: BP 103/45
[2019-08-07] MEDS ORDERED: CEFDINIR300 MG PO (16:46)
[2019-08-07] MEDS ORDERED: PACERONE 200 M200 M1 PO (16:49)
[2019-08-07] MEDS ORDERED: METRONIDAZOLE500 M4 PO (16:49)
[2019-08-07] MEDS ORDERED: METOPROLOL SUCC50 MG PO (16:55)
[2019-08-07] MEDS ORDERED: LASIX 20 MG TAB20 MG PO (16:58)
[2019-08-07] MEDS ORDERED: PREDNISONE 5 MG5 MG PO (17:00)
[2019-08-07] MEDS ORDERED: AMARYL2 M1 PO (17:01)
[2019-08-07] MEDS ORDERED: METFORMIN HCL500 MG PO (17:03)
--- NOTE | 2019-08-07 17:12 | NUR ---
PATIENT SEEN THIS DATE BY FELIZ GALLEGOS NP WITH DR. BECKMAN. PATIENT IS TOO HIGH FUNCTIONING FOR 5N ACUTE REHAB. INTERMEDIATE FACILITY SUGGESTED FOR D/C LOCATION. [employer]AY UNIT ADJUSTER INFORMED. THANK YOU FOR THIS REFERRAL.
--- NOTE | 2019-08-07 17:21 | NUR ---
PT READY FOR DC TO SKILLED REHAB AT [facility]. CHART COPIED. [id number] AND DC ORDERS FAXED TO [facility] IN ADMISSIONS. 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 PT AND SON NOTIFIED OF DC PLAN AND AGREEABLE. RN GIVEN # FOR REPORT.
[2019-08-07] MEDS ORDERED: HYDROCODON-ACE1 EAC7 PO (18:14)
--- NOTE | 2019-08-23 12:29 | P ---
[facility] [place] [address] PROCEDURE REPORT Name: RYAN SADLER Room #: 214-P [facility] IN M.R.#: [id number] Admission: 07/27/19 Attend Phys: Lesli Greer Discharge: 08/07/19 Date of : 36 Report #: [id number] THIS REPORT FOR: //name// CC: Lesli Bellamy PACEMAKER IMPLANTATION PREOPERATIVE DIAGNOSES: 1. Atrial fibrillation. 2. Sick sinus syndrome. 3. Tachycardia-bradycardia syndrome. HISTORY: The patient is an 79-year-old male who was admitted with diverticulitis, treated with antibiotics. He was also noted to have new onset atrial fibrillation with rapid ventricular response and was started on antiarrhythmic drugs and beta blockers, but developed a sinus bradycardia in the 30s. He is here for dual chamber pacemaker implantation for sick sinus syndrome and tachycardia-bradycardia syndrome. ANESTHESIA: The patient underwent MAC anesthesia with no anesthesia related complications. PROCEDURES PERFORMED: 1. Dual-chamber pacemaker implantation. 2. DC cardioversion. DESCRIPTION OF PROCEDURE: The patient was brought to the EP laboratory. The patient underwent informed consent. We discussed the details of the procedure including the risks, which include but not limited to bleeding, infection, vascular damage, cardiac perforation, pneumothorax. He understood these risks and is willing to proceed. The patient was brought to EP laboratory in fasting and sedated state, prepped and draped in a sterile fashion, underwent venogram showing patency of the left axillary vein and received IV antibiotics. Next, lidocaine was injected below the level of clavicle. Incision was made. Pocket was created over the prepectoral fascia. Access was obtained twice to the left axillary vein using the extrathoracic approach with sheaths positioned using the modified Seldinger technique. Next, under fluoroscopy, leads were positioned into the right ventricular apex and right atrial appendage both with adequate pacing and sensing thresholds. The leads were sutured to the prepectoral fascia. Device was connected. Pocket was irrigated with vancomycin and then closed in 2 layers using 2-0 for the deep layer, 3-0 for the middle layer. Surgical glue was placed outer skin layer. The patient awoke neurologically and hemodynamically intact. No complications and no significant bleeding. The implanted pacemaker was [employer], model #SH0233, serial #[id number]. Atrial lead, [employer] [facility] [address] [place] [address] PROCEDURE REPORT Name: RYAN SADLER Room #: 214-[facility] IN M.R.#: [id number] Admission: 07/27/19 Attend Phys: Lesli Greer Discharge: 08/07/19 Date of : 38 Report #: [id number], model #2088TC, serial #[id number]. RV lead, [employer], model #2088TC, serial #[id number]. The atrial lead demonstrated P waves of 1.5 millivolts, pacing impedance of 380 ohms and a pacing threshold of less than 1 volt at 0.4 milliseconds. The RV lead demonstrated R-wave of 11.1 millivolts, pacing impedance of 760 ohms and a pacing threshold of 0.75 volts at 0.4 milliseconds. The device was programmed to the DDDR 60-130 mode. Post-pacemaker implant, the patient did go back into atrial fibrillation with rapid ventricular response and therefore, the patient received 150 of amiodarone and underwent a 200 joule synchronized cardioversion with episcopalian of sinus rhythm. There were no procedure-related complications. CONCLUSIONS: 1. Successful dual-chamber pacemaker implantation. 2. Satisfactory atrial and ventricular pacing thresholds. 3. Successful DC cardioversion with episcopalian of sinus rhythm. <ELECTRONICALLY SIGNED> By: Tommie Cope MD 08/23/19 1229 0801 0826 Tommie Cope MD /nt
== END 2019-08-07 18:30 | DRG 242 ==
LOC: ER 18:29 → 2N 21:41 → EROBS 21:41 → 2N 22:45
PROVIDERS: Hospitalist; Internal Medicine; Internal Medicine Cardiovascular Disease; Nurse Practitioner Adult Health; Nurse Practitioner Family; Physician Assistant; Specialist; ADMIT Hospitalist
DX: I49.5 Sick sinus syndrome (principal); E43 Unspecified severe protein-calorie malnutrition; N17.9 Acute kidney failure, unspecified; E87.1 Hypo-osmolality and hyponatremia; K57.32 Diverticulitis of large intestine without perforation or abscess without bleeding; I48.92 Unspecified atrial flutter; I48.0 Paroxysmal atrial fibrillation; I95.9 Hypotension, unspecified; I12.9 Hypertensive chronic kidney disease with stage 1 through stage 4 chronic kidney disease, or unspecified chronic kidney disease; N18.9 Chronic kidney disease, unspecified; E11.22 Type 2 diabetes mellitus with diabetic chronic kidney disease; D64.9 Anemia, unspecified; E78.00 Pure hypercholesterolemia, unspecified; N40.0 Benign prostatic hyperplasia without lower urinary tract symptoms; M10.9 Gout, unspecified; M17.0 Bilateral primary osteoarthritis of knee; R80.9 Proteinuria, unspecified; E78.5 Hyperlipidemia, unspecified; E86.0 Dehydration; K21.9 Gastro-esophageal reflux disease without esophagitis; Z79.84 Long term (current) use of oral hypoglycemic drugs; Z90.49 Acquired absence of other specified parts of digestive tract; Z79.899 Other long term (current) drug therapy; Z79.82 Long term (current) use of aspirin; Z88.0 Allergy status to penicillin; Z68.28 Body mass index [BMI] 28.0-28.9, adult
CPT/HCPCS: 10081; 62110; 62900; 70005

== ENCOUNTER 2019-08-20 17:25 | Inpatient (IN) | payer OTHER ==
[~2019-08-20] VITALS: Ht 170.2 cm; Wt 73.8 kg
[2019-08-20] VITALS: BP 104/69; BP 91/61
--- NOTE | ~2019-08-20 | HC ---
[facility] [place] [address] [place] [address] CONSULTATION Name: RYAN SADLER Room #: 209-P [facility] IN M.R.#: [id number] Admission: 08/20/19 Attend Phys: Raul Mcknight MD Discharge: 08/29/19 Date of : 38 Report #: [id number] THIS REPORT FOR: //name// CC: [facility] DATE OF SERVICE: 08/29/2019 INFECTIOUS DISEASE CONSULTATION. REASON FOR CONSULTATION: Evaluate C. difficile colitis. HISTORY OF PRESENT ILLNESS: This is an 79-year-old known from his previous hospitalization where he was diagnosed with diverticular disease. Along with this, he was found to have gout. Later discharged on ciprofloxacin and metronidazole. Prior to his scheduled followup, he developed increased diarrhea, found to be C. difficile positive. Further workup noted rectal mass, positive for adenocarcinoma. He is now having further outpatient workup scheduled prior to surgical intervention. The pathologic specimens showed active colitis with the addition of the rectosigmoid mass that was pathologically diagnosis invasive moderately differentiated colon adenocarcinoma. For his diarrhea, he was placed on enteral vancomycin. He has noticed now that his stools are soft formed. No nausea or vomiting. No fever, chills or sweats. No dysuria. REVIEW OF SYSTEMS: Denies any cardiopulmonary complaints. He has had tenderness to his right hand and forearm region. This has been over the last several days. PAST MEDICAL HISTORY: Diabetes, hypertension, chronic kidney disease, vascular disease, diverticulitis, hyperlipidemia, depression, permanent pacemaker. Has a [employer] pacemaker placed on 08/06/2019. FAMILY HISTORY: Noncontributory. SOCIAL HISTORY: Nonsmoker, no significant alcohol intake. REVIEW OF SYSTEMS: A 10-point review of systems negative other than what has been described above. PHYSICAL EXAMINATION: VITAL SIGNS: Afebrile and hemodynamically stable. GENERAL: He is alert and cooperative and pleasant, in no acute distress. SKIN: With an area of hemorrhagic bullous lesion over the dorsum of his proximal hand on the right. Surrounding tenderness. This appeared to be an area where he had blood drawn previously. No palpable adenopathy. [facility] [address] [place] [address] CONSULTATION Name: RYAN SADLER Room #: 209-P [facility] IN M.R.#: [id number] Admission: 08/20/19 Attend Phys: Raul Mcknight MD Discharge: 08/29/19 Date of : 38 Report #: [id number] HEENT: Eyes, without scleral icterus. Mouth without mucositis. NECK: Supple. LUNGS: Clear. HEART: Regular, without murmur. ABDOMEN: Soft, nontender with no hepatosplenomegaly or mass. RECTAL: Not performed. BACK: Nontender with no CVA tenderness. GENITOURINARY: External genitalia without lesion. EXTREMITIES: Without clubbing, cyanosis or edema. NEUROLOGIC: Cranial nerves intact. Strength in the upper and lower extremities normal. Sensation in the upper and lower extremities within normal limits. Mood was normal. Joints without evidence of arthritis. LABORATORY STUDIES: Reviewed. Creatinine 1.2. Hemoglobin 8.6, WBC 4.4, platelet count 224,000. C. difficile positive. Urinalysis unremarkable. IMPRESSION: 1. Rectosigmoid adenocarcinoma. 2. Clostridium difficile colitis. 3. History of diverticulitis. 4. Diabetes. 5. Hypertension. 6. Peripheral vascular disease. 7. Permanent pacemaker. RECOMMENDATIONS: 1. We will continue with enteral vancomycin 125 mg q.i.d. for the next 2 weeks. Follow up outpatient clinic prior to finishing his course of therapy. 2. We would like stools to be performed for at least a week before discontinuing his antibiotics. Note, there are further plans for cancer workup and adjuvant therapy. I have discussed with nursing staff. 3. We will unroof the hemorrhagic blister to his right hand. Send this for culture. He will be given a 5-day course of doxycycline 100 mg b.i.d. By: 1945 [id number] Jayesh Fierro MD /nt
[~2019-08-20 17:25] MED LIST changes: +AMARYL2 M1 PO; +AVAPRO 150 MG150 M1 PO; +CEFDINIR300 MG PO; +FLOMAX0.4 MG PO; +GLIMEPIRIDE1 MG PO; +HYDROCODON-ACE1 EAC7 PO; +LASIX 20 MG TAB20 MG PO; +METFORMIN HCL500 MG PO; +METOPROLOL SUCC50 MG PO; +METRONIDAZOLE500 M4 PO; +PACERONE 200 M200 M1 PO; +PREDNISONE 5 MG5 MG PO; +PROTONIX40 M2 PO; +TRAZODONE HCL50 MG PO; +VITAMIN D250 MCG PO
[2019-08-20 17:26] VITALS: BP 115/72
[2019-08-20 17:57] LABS: MCH 30.2 pg (26.0-34.0); MCHC 33.1 g/dL (28.0-37.0); MCV 91.3 fL (80.0-100.0); WBC 4.4 thou/uL (4.0-11.0)
[2019-08-20 17:58] LABS: PLATELET COUNT 335 thou/uL (150-400); RDW 16.6 % (10.5-14.5)
[2019-08-20 18:00] LABS: HEMOGLOBIN 5.7 gm/dL (14.0-18.0)
[2019-08-20 18:01] LABS: HEMATOCRIT 17.3 % (42.0-52.0)
[2019-08-20 18:14] LABS: ANION GAP 10 mmol/L (7-16); BUN 22 mg/dL (7-18); CALCIUM 8.6 mg/dL (8.5-10.1); CHLORIDE 96 mmol/L (98-107); CO2 25 mmol/L (21-32); CREATININE 1.6 mg/dL (0.7-1.3); GLUCOSE 84 mg/dL (74-106); POTASSIUM 3.9 mmol/L (3.5-5.1); SODIUM 131 mmol/L (136-145)
[2019-08-20 18:18] LABS: ALBUMIN 1.8 g/dL (3.4-5.0); SGOT 92 U/L (15-37); SGPT 98 U/L (30-65); TOTAL BILIRUBIN 0.3 mg/dL (<0.1-1.0); TOTAL PROTEIN 6.6 g/dL (6.4-8.2); TROPONIN-I <0.06 ng/mL (<0.06)
[2019-08-20 18:50] LABS: ABSOLUTE NEUTROPHILS 2.5 thou/uL (1.4-8.2)
[2019-08-20 18:51] LABS: HYPOCHROMASIA 2+; MICROCYTES 2+
[2019-08-20 23:21] VITALS: BP 88/40
[2019-08-21] VITALS (32 sets, daily range): BP systolic 91–125; BP diastolic 57–83
[2019-08-21 00:39] LABS: APTT 39.2 Seconds (24.5-32.8); INR 1.6; PROTIME 16.8 Seconds (9.3-11.4)
--- NOTE | 2019-08-21 02:02 | NUR ---
Pt transported from ED to ICU room 242 @ 2330. I UNIT OF PRBC ORDER AT STARTED IN ICU. OLIVER PALMER HAS SEEN THE PT AND WAS UPDATED ON PT STATUS SINCE ARRIVAL TO ICU. CONSULTS HAVE BEEN CONTACTED. SPOKE TO DR. LOPEZ OF . GERRI IS AWARE OF PT CONDITION AND IS RECEIVING A UNIT OF BLOOD. GERRI WILL SEE PT IN THE AM. CONTINUE TO MONITOR. PT ON C-DIFF PRECAUTIONS FOR POSTIVE TEST RESULT WHILE IN REHAB AT [facility] A WEEK PRIOR
[2019-08-21 04:52] LABS: ALBUMIN 1.7 g/dL (3.4-5.0); CALCIUM 7.9 mg/dL (8.5-10.1); CREATININE 1.4 mg/dL (0.7-1.3); POTASSIUM 3.7 mmol/L (3.5-5.1); TOTAL BILIRUBIN 0.4 mg/dL (<0.1-1.0); TOTAL PROTEIN 6.3 g/dL (6.4-8.2)
[2019-08-21 05:10] LABS: URINE BILIRUBIN NEGATIVE (Negative); URINE BLOOD NEGATIVE (Negative); URINE CLARITY CLEAR; URINE COLOR YELLOW; URINE GLUCOSE-RANDOM* NEGATIVE (Negative); URINE KETONES NEGATIVE (Negative); URINE LEUKOCYTES-REFLEX NEGATIVE (Negative); URINE NITRITE-REFLEX NEGATIVE (Negative); URINE PROTEIN (DIPSTICK) NEGATIVE (Negative); URINE SPECIFIC GRAVITY <= 1.005 (1.005-1.035); URINE UROBILINOGEN 0.2 E.U./dl (0.2-1.0)
[2019-08-21 05:36] LABS: RBC 2.13 mil/uL (4.50-6.00); WBC 3.6 thou/uL (4.0-11.0)
[2019-08-21 05:37] LABS: MCH 30.2 pg (26.0-34.0); MCHC 32.8 g/dL (28.0-37.0); RDW 15.9 % (10.5-14.5)
[2019-08-21 05:53] LABS: HEMATOCRIT 19.6 % (42.0-52.0); HEMOGLOBIN 6.4 gm/dL (14.0-18.0)
[2019-08-21 10:28] LABS: HEMATOCRIT 22.9 % (42.0-52.0); HEMOGLOBIN 7.7 gm/dL (14.0-18.0)
--- NOTE | 2019-08-21 16:04 | NUR ---
INITIAL ASSESSMENT: SW reviewed chart and spoke with nursing and attending physician. Pt was admitted from [facility] due to low hemoglobin (6.2). Pt is in isolation for c.diff. SW met with pt and friends at bedside. Introduced role of SW. Pt is alert/orientated x 4. Pt states that his plan is to return to [facility] when medically stable. Pt normally lives at home alone. Pt's needs can all be met on the main level. Pt's PCP is Dr. Rene Bellamy. nurse discharge planner to fax clinical info to [facility] for review. Plan is for pt to return to [facility] when medically stable. SW is following to assist as needed with discharge planning.
--- NOTE | 2019-08-21 16:16 | NUR ---
PT IS ALERT AND ORIENTED X4. LUNGS ARE CLEAR. ON ROOM AIR. AFIB /AFLUTTER. RATE 140'S CARDIOLGY AWARE AND MEDS GIVEN FOR RATE PER ORDERED. GI BLOODY STOOLS NOTED 2 UNITS GIVEN WITH IMPROVED HGB NOTED. PT IS HAVING LOOSE STOOLS TODAY AND BLOODY. LARGE AMOUNTS GI AWARE OF PT AND BLEEDING. PT IS IN ISOLATION FOR C-DIFF ON TOP OF HIS CARE PLAN. CONTINUE TO MONITOR AND ASSESS HEMOGLOBIN AND HEMATOCRIT PER NURSING AND INFORM PHYSICANS OF PT'S LABS. AND STOOLS.
[2019-08-21 16:30] LABS: HEMATOCRIT 20.9 % (42.0-52.0); HEMOGLOBIN 7.1 gm/dL (14.0-18.0)
--- NOTE | 2019-08-21 16:37 | NUR ---
FAXED CLINICAL UPDATE TO [facility] RECEIVED CONFIRMATION AND LEFT MSG WITH YUDITH IN ADM. DP TO FOLLOW.
--- NOTE | 2019-08-21 16:59 | EKG ---
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 : 1940 Requested By: German Null Order Number: [id number] MD: Bridger Christy Measurements Intervals [place] Rate: 139 P: 106 ID: [id number] QRS: -51 QRSD: 99 T: -20 QT: 382 QTc: 581 Interpretive Statements Atrial flutter with 2-1 AV conduction Leftward axis Poor R wave progression Compared to ECG 08/06/2019 08:02:52 Atrial flutter has replaced sinus rhythm Electronically Signed On 08-21-2019 16:59:16 TIE MAKER by Bridger Christy [email or web address] <ELECTRONICALLY SIGNED> By: Bridger Christy MD, FAC 08/21/19 1659 1800 1800 Bridger Christy MD, [facility] /EPI
[2019-08-22] VITALS (23 sets, daily range): BP systolic 108–142; BP diastolic 53–83
[2019-08-22 02:27] LABS: HEMATOCRIT 23.4 % (42.0-52.0); HEMOGLOBIN 7.5 gm/dL (14.0-18.0)
--- NOTE | 2019-08-22 02:37 | NUR ---
Report given by DANYELLE Daly. pt's 1600 Hgb 7.1. Pt had 2 bloody BM after the HH check. This RN called ESTELA Brumfield at 1937. Estela Brumfield suggested to call GI. GI was called. gave one order to transfuse PRBC to pt. Pt's recheck Hgb is 7.5 at 0200.
--- NOTE | 2019-08-22 04:37 | NUR ---
Pt heart rate in 60-70. amiodarone drip turned off at 2237. Pt having paced rhythm of 60-70's throughout the night. pt had X1 large bloody stool episode at night. current Hbg 7.5 at 0200. vital signs stable throughout the night.
[2019-08-22 05:57] LABS: HEMATOCRIT 24.5 % (42.0-52.0); HEMOGLOBIN 8.1 gm/dL (14.0-18.0); MCH 29.8 pg (26.0-34.0); MCV 90.4 fL (80.0-100.0); PLATELET COUNT 290 thou/uL (150-400); RBC 2.71 mil/uL (4.50-6.00); RDW 16.4 % (10.5-14.5); WBC 4.5 thou/uL (4.0-11.0)
[2019-08-22 06:14] LABS: ALBUMIN 1.6 g/dL (3.4-5.0); CALCIUM 8.2 mg/dL (8.5-10.1); CREATININE 1.3 mg/dL (0.7-1.3); MAGNESIUM 1.9 mg/dL (1.8-2.4); POTASSIUM 3.7 mmol/L (3.5-5.1); TOTAL BILIRUBIN 0.6 mg/dL (<0.1-1.0)
[2019-08-22 06:49] LABS: ABSOLUTE NEUTROPHILS 2.7 thou/uL (1.4-8.2); ANISOCYTOSIS 1+; PLATELET ESTIMATE NORMAL; POIKILOCYTOSIS 1+
[2019-08-22 07:10] LABS: HAV IgM AB (ANTI-HAV IgM) Negative (Negative); HEPATITIS B SURFACE AG Negative (Negative); HEPATITIS C VIRUS AB <0.1 (0.0-0.9)
[2019-08-22 08:23] LABS: HEMATOCRIT 25.3 % (42.0-52.0); HEMOGLOBIN 8.4 gm/dL (14.0-18.0)
--- NOTE | 2019-08-22 12:47 | NUR ---
PATIENT IN NUCLEAR MED FOR BLEEDING SCAN WITH RADIO MECHANIC HELPER ACCOMPANIED BY THIS NURSE
[2019-08-22 14:00] LABS: HEMATOCRIT 28.1 % (42.0-52.0)
--- NOTE | 2019-08-22 14:47 | NUR ---
Update given to Daron mathew. Possible dc 2-3 days. Will need snf auth. Dc meeting/event planner to fax therapy updates.
--- NOTE | 2019-08-22 16:18 | NUR ---
PATIENT RESTING IN THE CHAIR, SEEN BY OT AND PT TODAY. LESION ON RT FOREARM APPEARS MORE REDDENED WITH A BLACKISH AREA ON TOP AFTER USING WARM COMPRESS. DR GREGG NOTIFIED AND ORDERS FOR ULTRASOUND OF RT FOREARM OBTAINED. BREATE SOUNDS IMPROVED AFTER LASIX, DIURICED OVER A LITER. STOOLS ARE NOW DARK RED FLECKS IN THE LIQUID NOTED. HEMAGLOBIN IS UP. MONITOR AFIB WITH CONTROLLED VENTRICULAR RESPONSE WITH OCC PACED BEATS. PATIENT UPDATED TO THE POC AND REASSURANCE GIVEN. VERBALIZED UNDERSTANDING.
--- NOTE | 2019-08-22 16:37 | NUR ---
SPOKE WITH DR. GREGG ABOUT TIMELINE FOR DC AND UPDATED YUDITH AT [facility] REQUESTING SHE SUBMIT FOR SKILLED AUTH.
[2019-08-23] VITALS (21 sets, daily range): BP systolic 107–134; BP diastolic 44–81
[2019-08-23 05:23] LABS: HEMATOCRIT 26.3 % (42.0-52.0); HEMOGLOBIN 8.7 gm/dL (14.0-18.0); MCH 30.3 pg (26.0-34.0); MCHC 33.2 g/dL (28.0-37.0); MCV 91.2 fL (80.0-100.0); RBC 2.88 mil/uL (4.50-6.00); RDW 16.5 % (10.5-14.5); WBC 4.5 thou/uL (4.0-11.0)
[2019-08-23 05:25] LABS: CALCIUM 8.3 mg/dL (8.5-10.1); CREATININE 1.4 mg/dL (0.7-1.3); MAGNESIUM 1.8 mg/dL (1.8-2.4); POTASSIUM 3.2 mmol/L (3.5-5.1)
--- NOTE | 2019-08-23 08:31 | NUR ---
REPORT GIVEN TO DANYELLE PALAFOX. CHART CHECK. PT PROGRESSING TOWARDS GOAL. PT NPO AFTER MIDNIGHT FOR EGD THIS AM.
--- NOTE | 2019-08-23 13:28 | NUR ---
MOST RECENT OT/PT EVALS SENT TO [facility] PER Ciaran TEMPLETON. CONFIRMATION RECEIVED. [facility]
--- NOTE | 2019-08-23 19:50 | NUR ---
MONITOR SHOWING A FLUTTER NOW WITH A RATE IN THE 110'S TO 120'S INITIALLY SHOWING AFIB THIS AM WITH A VENT RESPONSE IN THE 130' S. METOPOROL, DIG AND AMIORARONE GIVEN PER ORDER AND AMIODARONE DRIP STARTED AT 12O2. BP REMAINS 110-130'S OVER 70'S. PO POTASSIUM GIVEN FOR SERUM K OF 3.2 AND MAG GIVEN FOR SERUM MAG OF 1.8. STOOLS ARE MUCOUS TO LOOSE WATERY DK BROWNISH IN COLOR. DENIES ABD PAIN. FULL LIQUID DIET STARTED, WITHOUT NAUSEA. AMBULATED IN THE ROOM AND UP TO THE CHAIR. PATIENT UPDATED TO POC AND REASSURANCE GIVEN.
[2019-08-24] VITALS (18 sets, daily range): BP systolic 91–134; BP diastolic 60–82
[2019-08-24 04:34] LABS: HEMATOCRIT 28.6 % (42.0-52.0); HEMOGLOBIN 9.3 gm/dL (14.0-18.0); MCH 29.8 pg (26.0-34.0); MCHC 32.6 g/dL (28.0-37.0); MCV 91.4 fL (80.0-100.0); RBC 3.13 mil/uL (4.50-6.00); RDW 16.1 % (10.5-14.5); WBC 4.1 thou/uL (4.0-11.0)
[2019-08-24 04:46] LABS: CALCIUM 8.3 mg/dL (8.5-10.1); CREATININE 1.2 mg/dL (0.7-1.3); MAGNESIUM 1.6 mg/dL (1.8-2.4); POTASSIUM 3.2 mmol/L (3.5-5.1)
--- NOTE | 2019-08-24 06:08 | NUR ---
NO OVERNIGHT EVENTS. PT HAD FREQUENT LOOSE STOOLS THROUGHOUT THE NIGHT. PT REMAINS ON AMIO GTT. RHYTHM IS A FIB/FLUTTER AND THE RATE FLUCTUATES BETWEEN 70s AND 110s. METOPTOLOL 0145 DOSE HELD, D/T HR RANGING IN 70s TO 90s THE MAJORITY OF THE MORNING. WILL CONTINUE TO MONITOR.
--- NOTE | 2019-08-24 13:24 | NUR ---
FOLLOWING FOR DC PLANNING. CLINCIAL INFO REVIEWED. PT REMIANS ON AMIO GTT FOR AFIB, RATES NOT CONTROLLED YET. GI FOLLOWING WITH TENTATIVE PLAN OFR C-SCOPE THIS ADMIT. NO WEEKEND DC PER DR. GREGG. UPDATE TO ADMISSIONS AT [facility] PLAN FOR PT TO RETURN TO SKILLED REHAB WHEN MEDICALLY READY. SPOKE WITH JACLYN BILLY AT [facility] WHO DOES SKILLED AUTH AND UPDATED NO W/E DC.
--- NOTE | 2019-08-24 14:33 | NUR ---
FAXED CLINICAL UPDATE TO [facility] RECEIVED CONFIRMATION AND LEFT MSG WITH YUDITH IN ADM THAT PT WILL NOT DC OVER WEEKEND. DP TO FOLLOW.
--- NOTE | 2019-08-24 17:30 | NUR ---
ASSUMED PT CARE AT 1700, REPORT CALLED TO [facility] [employer]PRESENTATIVE AT 1730, TRANSPORTED PT TO RM 209, WITH BELONGINGS, CELL [id number].
--- NOTE | 2019-08-24 17:55 | NUR ---
RECIEVED PT FROM ICU. SITTING UPRIGHT IN CHAIR. VSS. TOLORATING FULL LIQUID DIET. S1S2 PULSES 2/1 + LE EDEMA. LUNGS CTA. ABD SL DISTENDED, NON TENDER. DENIES PAIN.
--- NOTE | 2019-08-24 18:40 | NUR ---
VAT CONSULTED FOR A PICC FOR AMIODERONE. PT HAS MULITPLE AREAS OF AMIO INFILTRATTION. A 4FRDBLPICC PLACED IN RUABASILIC. PLEASE SEE INSERTION NOTE FOR DETAILS
[2019-08-25 00:13] VITALS: BP 117/68
[2019-08-25 04:55] VITALS: BP 127/62
--- NOTE | 2019-08-25 05:08 | NUR ---
NO CHANGES OVERNIGHT. PT REMAINS ON AMIO GTT, NO CHANGE IN RATE. PT HAS BEEN A-PACED WITH A RATE OF 60 THROUGHOUT THE NIGHT. PT HAS HAD FREQUENT BMs, AND HAS NOT SLEPT MUCH. POTASSIUM AND MAG REPLACED LAST NIGHT. BMP AND MAG DRAWN THIS MORNING; LABS PENDING. WILL CONTINUE TO MONITOR.
[2019-08-25 05:53] LABS: CALCIUM 8.2 mg/dL (8.5-10.1); CREATININE 1.1 mg/dL (0.7-1.3); MAGNESIUM 1.6 mg/dL (1.8-2.4); POTASSIUM 3.5 mmol/L (3.5-5.1)
[2019-08-25 11:55] VITALS: BP 127/61
[2019-08-25 15:30] VITALS: BP 130/62
--- NOTE | 2019-08-25 17:41 | NUR ---
Patient had a better day than night. He only had 3 bowel movements for day shift. Two were early in the am and one was in the afternoon. Patient PICC line flushes and draws ok. Patient was able to do self bath and brush teeth. We also walked in the room a few laps. Patient is tolerating diet well. Patient complained of right arm pain where infiltration occured. Applied ice and gave tylenol. No other complaints or concerns. VSS
--- NOTE | 2019-08-25 17:49 | NUR ---
Received patient from ER this afternoon. He is in NSR and has no complaints. All VSS. Patient was able to walk to BR with a walker and voided. No complaints of any kind of pain, dizziness, or lightheaded. Cariac consult is pending for tomorrow. Family requested sleeping aid. Paged the physician but have not had a reply. Other nurse on the unit stated that tuesday night we should let night nurse contact FILLING TECHNICIAN composition professor. Will relay in report to get slepping aid for patient. Patient is resting well and watching football.
[2019-08-25 20:36] VITALS: BP 111/50
[2019-08-26 06:06] VITALS: BP 137/63
--- NOTE | 2019-08-26 07:59 | NUR ---
PATIENTS CARES WERE ASSUMED AT SHIFT CHANGE. PATIENT WAS ASSESSED AND MEDS WERE PASSED. PATIENT HAD NO REQUES THIS SHIFT. HOURLY ROUNDING WAS DONE. THE BED ALARM STAIED ON. THE BED WAS IN A LOW AND LOCKED POSITION.
[2019-08-26 08:42] VITALS: BP 138/59
[2019-08-26 11:33] VITALS: BP 126/75
[2019-08-26 16:00] VITALS: BP 130/63
--- NOTE | 2019-08-26 18:46 | NUR ---
PATIENT STARTED ON GOLYTELY PREP THIS EVENING. HE IS ABLE TO GET TO COMMODE ON HIS OWN. HIS RIGHT ARM/WRIST IS WARM TONIGHT AND RED. HE EXPRESSED HIS ARM IS SORE. EDUCATION PROVIDED. PATIENT SLOWLY PROGRESSING TOWARDS PLAN OF CARE, HIS ENDURANCE IS INCREASING, HOWEVER STILL EXPRESSES HE FEELS SHORT OF AIR WITH EXERTION.
[2019-08-26 20:43] VITALS: BP 139/67
[2019-08-27 05:58] VITALS: BP 139/66
--- NOTE | 2019-08-27 07:47 | NUR ---
ASSUMED PT CARE AT 1900. PT IS BEING PREPPED FOR COLONOSCOPY IN MORNING. PT WAS NOT ABLE TO DRINK THE ENTIRE PREP PRIOR TO MIDNIGHT AND STOOL WAS MARIA ELENA BUT ABLE TO SEE THRU IN THE MORNING. ASSESSMENT INFO CHARTED AND PASSED ALONG TO DAY SHIFT. PT C/O PAIN IN LOWER BACK AND PAIN MEDICATIONS GIVEN PER EMAR. WILL CONTINUE TO MONITOR PT PER POC.
[2019-08-27 08:13] LABS: HEMATOCRIT 25.3 % (42.0-52.0); HEMOGLOBIN 8.1 gm/dL (14.0-18.0); MCH 29.7 pg (26.0-34.0); MCHC 32.2 g/dL (28.0-37.0); MCV 92.2 fL (80.0-100.0); RBC 2.74 mil/uL (4.50-6.00); RDW 17.2 % (10.5-14.5); WBC 4.4 thou/uL (4.0-11.0)
[2019-08-27 08:29] LABS: CALCIUM 8.6 mg/dL (8.5-10.1); CREATININE 1.2 mg/dL (0.7-1.3); POTASSIUM 3.5 mmol/L (3.5-5.1)
[2019-08-27 08:35] LABS: ALBUMIN 1.6 g/dL (3.4-5.0); TOTAL BILIRUBIN 0.3 mg/dL (<0.1-1.0); TOTAL PROTEIN 5.9 g/dL (6.4-8.2)
[2019-08-27 08:36] VITALS: BP 113/53
[2019-08-27 11:25] VITALS: BP 131/63
[2019-08-27 16:39] VITALS: BP 135/62
--- NOTE | 2019-08-27 16:52 | NUR ---
DC planning visit at bedside this afternoon. Pt continues to work with therapy. Pt lives alone and has limited support. He will need to be indep with gait/adl's to return home. He is motivated but feeling anxious about possible cancer dx. [facility] updated. They will need ins auth for skilled admission. Dc timeframe uncertain. Will follow.
--- NOTE | 2019-08-27 17:06 | NUR ---
ASSUMMED PT CARE AT APPROXIMATELY 0700. PT A&O X4. FALL PRECAUTIONS IN PLACE. ASSESSMENT CHARTED. PT DENIES HAVING CHEST PAIN. PT DENIES HAVING SOB. PT STATES HE HAS CHRONIC BACK PAIN. PT RECEIVED ANALGESICS. PT STATED ANALGESICS HELPED RELIEVE PAIN. PT EDUCATED ABOUT POC. PT STATED UNDERSTANDING AND DENIED HAVING FURTHER QUESTIONS. VITAL SIGNS STABLE. BLOOD SUGARS STABLE. PT COMFORTABLE IN BED. PT AMBULATES STEADY/INDEPENDENT. PT DENIES HAVING FURTHER CONCERNS.
--- NOTE | 2019-08-28 05:45 | NUR ---
ASSUMED PT CARE AT 1900. VSS. PT A&0X4, A PACED ON THE MONITOR, ASSESSMENTS ARE CHARTED. PT IS STEADY ON HIS FEET. PT COMPLAINED OF BACK PAIN ONCE THIS SHIFT, FENTANYL GIVEN AND PT WENT BACK TO SLEEP. PT IS STABLE, NO FURTHER COMPLAINTS OF DISCOMFORT OR DISTRESS, WILL CONTINUE TO MONIOR.
[2019-08-28 05:53] VITALS: BP 137/56
[2019-08-28 08:00] VITALS: BP 124/54
--- NOTE | 2019-08-28 11:29 | NUR ---
VASCULAR ACCESS TEAM ROUNDING PT STATED THAT RIGHT ARM HAD PAIN AND SWELLING PRIOR TO PICC PLACEMENT AND THAT IT FEELS THE SAME AT PRESENT.2+RADIAL PULSE NO EDEMA NOTED
[2019-08-28 12:08] VITALS: BP 117/57
--- NOTE | 2019-08-28 13:29 | NUR ---
PATIENT DISCHARGED TO HOME ACCOMPANIED BY SPOUSE. PRESCRIPION AND DISCHARGE INSTRUCTIONS GIVEN, STATED UNDERSTANDING. GLENNY FAYE.
--- NOTE | 2019-08-28 13:37 | P ---
[facility] [place] [address] [place] [address] PROCEDURE REPORT Name: RYAN SADLER Room #: 209-P ADM IN M.R.#: [id number] Admission: 08/20/19 Attend Phys: Raul Mcknight MD Discharge: Date of : 36 Report #: [id number] THIS REPORT FOR: //name// CC: Samy Zepeda DATE OF SERVICE: 08/27/2019 PROCEDURE PERFORMED: Colonoscopy with biopsies and tattoo. HISTORY OF PRESENT ILLNESS: The patient is an 79-year-old male who was admitted last month with abdominal pain. He was also having diarrhea at that time as well as fever. CT scan of the abdomen and pelvis on 07/27/2019 showed possible mild diverticulitis, although there were prominent lymph nodes near the sigmoid colon and in the rectum, neoplastic process would need to be excluded. The patient was treated with antibiotics and improved. Unfortunately, he then had C. diff colitis. He is currently on p.o. vancomycin for this. He also had rectal bleeding recently. He had a repeat CT scan on 08/20/2019. This showed large amount of stool in the colon suggesting constipation, short segment of thickening in the distal sigmoid colon also noted in July. Plan is for colonoscopy today. DESCRIPTION OF PROCEDURE: The risks and benefits of the procedure were explained to the patient, those risks including but not limited to bleeding, perforation and the risk of sedation. He understood these risks and gave informed consent. Sedation was given using propofol per anesthesia. Next, a digital rectal exam was initially performed, which was normal. Next, using a standard Olympus colonoscope, the scope was placed in the patient's anus and advanced under direct vision to the cecum. The overall prep was good. The cecum was normal; however, on the ileocecal valve, there was an ulceration with a mild colitis near the ulceration. This was approximately 2 cm in length. There was no active bleeding. Biopsies were obtained to rule out ischemic colitis versus inflammatory bowel disease. The ascending, transverse and descending colon were normal. A few scattered diverticula were noted in the sigmoid colon. In the distal sigmoid colon, there was an area of colitis with several ulcerations. No evidence of bleeding. Biopsies were obtained to rule out ischemic colitis versus inflammatory bowel disease. Also noted was a malignant appearing mass in the distal sigmoid colon, at approximately 15-20 cm from the anus. This was friable. There was no active bleeding, but likely source of recent GI bleed. Multiple biopsies were obtained. I then tattooed both proximal and distal to the mass. The mass was approximately 4 cm in length and was nearly circumferential. The mid to distal rectum was normal. The scope was then withdrawn and the procedure terminated. The patient tolerated the procedure well. [address] [address] PROCEDURE REPORT Name: RYAN SADLER Room #: 209-P [facility] IN M.R.#: [id number] Admission: 08/20/19 Attend Phys: Raul Mcknight MD Discharge: Date of : 36 Report #: [id number] IMPRESSION: 1. Malignant appearing mass in the rectosigmoid area as described above. 2. Colitis with ulcerations noted in the distal sigmoid colon proximal to the mass as well as on the ileocecal valve. Biopsies were obtained to rule out the possibility of ischemic colitis. 3. Sigmoid diverticulosis, mild. No evidence of inflammation. RECOMMENDATIONS: 1. Await biopsy results. 2. Continue to treat with vancomycin for recent C. diff. 3. We will obtain a General Surgery consult for possible resection depending on biopsy results. Thank you for allowing me to participate in his care. <ELECTRONICALLY SIGNED> By: Tesfaye Fleming MD 08/28/19 1337 1039 2224 Tesfaye Fleming MD /nt
[2019-08-28 14:09] LABS: HEMATOCRIT 26.3 % (42.0-52.0); HEMOGLOBIN 8.6 gm/dL (14.0-18.0)
[2019-08-28 14:16] LABS: CALCIUM 8.2 mg/dL (8.5-10.1); CREATININE 1.2 mg/dL (0.7-1.3); POTASSIUM 3.4 mmol/L (3.5-5.1)
--- NOTE | 2019-08-28 14:37 | NUR ---
FAXED CLINICAL UPDATE TO [facility] SPOKE WITH YUDITH IN ADM SHE RECEIVED UPDATE.
[2019-08-28 16:20] VITALS: BP 121/50
--- NOTE | 2019-08-28 17:06 | PATH ---
[facility] [place] [address] PATHOLOGY RPT PROCEDURE Name: RYAN SADLER Room #: 209-P ADM IN M.R.#: [id number] Admission: 08/20/19 Date of : 36 Discharge: Report #: [id number] Path Case #: [id number] [facility] Accession Number: [id number] . 01 Material submitted: . PART A: ileo-cecal valve - BX ILEOCECAL VALVE ULCER-COLITIS PART B: sigmoid colon - BX COLITIS SIGMOID COLON PART C: rectosigmoid junction - BX RECTOSIGMOID MASS . 01 Clinical history: . Pre-OP DX: Rectal bleeding, anemia, recent diverticulitis, current C diff colitis Post-OP DX: None provided . 02 Diagnosis: A. Ileocecal valve, ulcer/colitis rule out ischemia, endoscopic biopsy: - Active colitis associated with a few architectural abnormalities, see comment. - Negative for dysplasia or malignancy. . B. Large intestine mucosa, colitis sigmoid rule out ischemia, inflammatory bowel disease, endoscopic biopsy: - Moderate to marked active colitis with focal architectural abnormalities. - Negative for dysplasia or malignancy. . C. Large intestine, rectosigmoid mass, endoscopic biopsy: - INVASIVE MODERATELY DIFFERENTIATED COLONIC ADENOCARCINOMA. . 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 02 Comment: Examination shows cryptitis, crypt abscess formation in a markedly expanded lamina propria. Architectural abnormalities are identified in scattered crypts. There are no viral inclusions or granulomata present. The large intestine mucosa sampled as "sigmoid colon" shows similar features with a markedly expanded lamina propria as well as surface ulceration. Explosive ulcers are not present. Fibrotic lamina propria is not identified as well. Overall features are suggestive of chronic active colitis. The differential diagnosis includes infectious-type of colitis, medication or drug induced colitis, diverticulitis, as well as active inflammatory bowel disease. Features to suggest ischemic colitis are not identified. The provided history of current C. diff colitis is noted, however, it is not possible to differentiate C. Difficile colitis from an active inflammatory bowel disease based on morphology alone. Please correlate with microbiological studies if indicated. [address] [address] PATHOLOGY RPT PROCEDURE Name: RYAN SADLER Room #: 209-P ADM IN M.R.#: [id number] Admission: 08/20/19 Date of : 36 Discharge: Report #: [id number] Path Case #: [id number] . Dr. Yessica Bahena has seen access representative slide of the sigmoid mass (part C of this case) and concurs with the diagnosis rendered. Findings of this case are conveyed to Dr. Jarad Fleming at approximately 1:20 p.m. on 08/28/19. . Per [facility] cancer committee protocol, MSI immunohistochemical stains (4 immunohistochemical stains) are ordered on block C. The results of these will be reported in an addendum to follow. . (IUV:beam saw operator; 08/28/2019) . 02 Electronically signed: . Angelic Martinez MD, Pathologist NPI- [id number] . 01 Gross description: . A. Received in formalin labeled "Frandy, Ryan, BX ileocecal valve ulcer/colitis," and additionally labeled on the requisition as "rule out ischemia, inflammatory bowel disease," are 2 segments of martinez soft tissue measuring 1.1 x 0.3 x 0.2 cm in aggregate dimensions and ranging from 0.5 to 0.6 cm in maximum dimension. The specimen is submitted entirely in cassette A1. . B. Received in formalin labeled "Frandy, Ryan, BX colitis, sigmoid colon," and additionally labeled on the requisition as "rule out ischemia, inflammatory bowel disease," are 3 segments of martinez soft tissue measuring 0.9 x 0.8 x 0.2 cm in aggregate dimensions and ranging from 0.3 to 0.5 cm in maximum dimension. The specimen is submitted entirely in cassette B1. . C. Received in formalin labeled "Frandy, Ryan, BX rectosigmoid mass," are 5 segments of martinez soft tissue measuring 1.1 x 0.9 x 0.3 cm in aggregate dimensions and ranging from 0.2 to 0.5 cm in maximum dimension. The specimen is submitted entirely in cassette C1. (TSD; 08/27/2019) TOB/TOB 08/27/2019 2212 Local . 02 Pathologist provided ICD-10: K52.9, C18.9 . 02 CPT . 337701, 951946, [id number] Specimen Comment: A courtesy copy of this report has been sent to [phone] Specimen Comment: [phone], Specimen Comment: Report sent to ,DR GREGG / DR PERALES Performed at: 01 [facility] [address] [place] [address] PATHOLOGY RPT PROCEDURE Name: RYAN SADLER Room #: 209-P ADM IN M.R.#: [id number] Admission: 08/20/19 Date of : 36 Discharge: Report #: [id number] Path Case #: [id number] [address] [facility] [address], [place], [place] [id number] MD Ammon Torres MD Phone: [phone] Performed at: [facility] [address] [place], [place] [id number] MD Angelic Martinez MD Phone: [phone]
--- NOTE | 2019-08-28 17:56 | NUR ---
PATIENT CARE ASSUMED, ASSESSMENT CHARTED, VSS, ALERT AND ORIENTED X 4, UP TO CHAIR, C/O BACK, PAIN MEDICATIONS GIVEN, WILL CONTINUE TO MONITOR
[2019-08-28 20:13] VITALS: BP 122/56
--- NOTE | 2019-08-29 05:14 | NUR ---
ASSUMED PT CARE AT 1900. PT C/O OF PAIN TO LOWER BACK THAT DOES NOT SEEM TO BE RELIEVED WITH PAIN MEDICATION. CONTINUE TO ALTERNATE BETWEEM TYLENOL AND NARCOTIC TO TRY TO STAY AHEAD OF PAIN. PT SLEPT THRU NIGHT BESIDES MINIMAL INTERRUPTIONS FOR SCHEDULED CARES. PT VSS. PT IS PLANNING TO TRANSFER FACILITIES TMRW AND WOULD LIKE TO SHOWER PRIOR TO SON ARRIVAL AROUND 0830 IF POSSIBLE. WILL PASS REQUEST ALONG TO DAYSHIFT RN. WILL CONTINUE TO MONITOR PER POC.
[2019-08-29 05:15] VITALS: BP 133/59
[2019-08-29] MEDS ORDERED: FIRVANQ50 MG/1 ML PO (10:17)
[2019-08-29 11:43] VITALS: BP 112/52
--- NOTE | 2019-08-29 13:19 | NUR ---
FAXED REFERRAL TO [facility] SPOKE WITH GONZALO IN INTAKE AND THEY CAN ACCEPT BUT WOULD NOT BE ABLE TO START VISITS TIL TUESDAY. SW FEELS PT NEEDS TO BE SEEN TOMORROW. FAXED REFERRAL TO [facility] SPOKE WITH GRACIELA IN INTAKE SHE RECEIVED REFERRAL AND CAN ACCEPT AND START VISITS TOMORROW AND WILL NOTIFY PT OF TIME OF VISITS.
[2019-08-29 13:24] VITALS: BP 112/52
[2019-08-29] MEDS ORDERED: LASIX 40 MG TAB40 M2 PO (13:36)
[2019-08-29 15:27] VITALS: BP 112/52
[2019-08-29] MEDS ORDERED: DOXYCYCLINE HYC50 MG PO (15:36)
[2019-08-29] MEDS ORDERED: PACERONE 200 M200 M1 PO (15:36)
--- NOTE | 2019-08-31 07:07 | HC ---
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 HISTORY OF PRESENT ILLNESS: The patient is a very pleasant 79-year-old male that I have taken care of his in the past. Evidently, he had some bleeding that brought him in and retrospect was prior from diverticulitis. He had a colonoscopy with biopsies that found a malignant appearing mass in the rectosigmoid area at about 15 cm. There is ulcerative colitis with ulcerations in the distal sigmoid colon proximal to mass as well as on the ileocecal valve. Biopsies were obtained. There is also sigmoid diverticulosis, mild. The biopsy at the ileocecal valve showed active colitis associated with a few architecture abnormalities. Negative for dysplasia or malignancy, large intestinal mucosa showed moderate to marked active colitis with focal architectural abnormalities. Negative for dysplasia or malignancy. The large intestine rectosigmoid mass showed invasive moderately differentiated colonic adenocarcinoma. Note that by history the patient evidently had a colonoscopy about 2 years ago. The patient also has a history notable for recent diverticulitis and a CAT scan did not show any definite malignant changes. A CT chest is pending. CEA is pending. The MSI test is pending. The patient denies any recent headache either fevers or chills last several days. Did have the blood in his stool, which was stopped. He has some slight weakness. No new arm or leg swelling. He reports no family history of colon cancer or family history of polyps that he is aware of. Note that he has a son who is present. PAST MEDICAL HISTORY: Notable for history of the adenocarcinoma of 15 cm in colonoscopy, also history of recent C. diff, also history of diverticulosis with diverticulitis, has a pacemaker in situ. Thereafter, I just talked with Cardiology nurse is both pacemaker and pacemaker wire, MRI friendly. Also, history of AFib, history of hypertension, history of diabetes mellitus, history of hyperlipidemia, history of mood disorder, history of peripheral vascular disease and a questionable history of gout. SOCIAL HISTORY: The patient is retired. Nonsmoker, nondrinker if I understand correctly. [address] [address] CONSULTATION Name: RYAN SADLER Room #: 209-P DIS IN M.R.#: [id number] Admission: 08/20/19 Attend Phys: Raul Mcknight MD Discharge: 08/29/19 Date of : 38 Report #: [id number] FAMILY HISTORY: As reported. Does not appear to show any colon cancers. Hypertension. ALLERGIES: PENICILLIN. CURRENT MEDICATIONS: At this time in the hospital currently include amiodarone 400 b.i.d., Benadryl topically, metoprolol 50 daily, vancomycin 250 q.i.d. p.o. metoprolol IV p.r.n., insulin on a sliding scale, pantoprazole 20 daily, fentanyl 25 mcg IV q. 4 hours p.r.n., trazodone 50 at bedtime, tamsulosin 0.4 mg at bedtime, fish oil 1000 mg daily, atorvastatin 20 daily, Tylenol p.r.n. PHYSICAL EXAMINATION: GENERAL: The patient appears his stated age. VITAL SIGNS: Height is 5 feet 7 inches, which is 170.2 cm, 162.7 pounds or 73.8 kilograms. Recent blood pressure is 133/59 with O2 sat of 99%, respirations 18, pulse 60, temperature 97.8. HEENT: Face is symmetrical. There may be some slight strabismus on my cursory exam of his eyes. Mouth without ulcerations or masses. LUNGS: Appear to be clear. HEART: Regular rate. LYMPHATICS: No enlarged lymph nodes in the supraclavicular, cervical, axillary region. ABDOMEN: Slightly protuberant, slightly gassy. EXTREMITIES: Without clubbing, cyanosis, or may be trace edema. LABORATORY DATA: Recent lab shows a BUN of 14, creatinine of 1.2, glucose of 248. Liver functions normal. Uric acid was elevated at 7.4. Transaminases normal. Albumin 1.6. Coags near normal, though protime 16.8 with an INR of 1.6, APTT 39.2. Recent serum protein electrophoresis without a paraprotein and recent serum immunofixation was negative. Recent white count 4.4, recent hemoglobin 8.6, MCV 92.2, platelets 224. Sed rate had been 120, IgG level at 1201, IgA 268, IgM 132. TSH 3.498. CEA pending. Hepatitis A, B and C tests negative, though C. diff was positive. Serum free kappa lambda ratio 1.3, normal range. Recent CAT scan of abdomen and pelvis talked about short segment narrowing of the distal sigmoid colon with enhancement, peritoneal unremarkable. No ascites, mild edema of the abdominal pelvic foy with edema involving the left mesentery that could reflect adenitis. Mild edema involving the foy of the abdomen and pelvis could represent anasarca. ASSESSMENT AND PLAN: 1. Adenocarcinoma at 15 cm in colonoscopy and likely sigmoid location. We will await evaluation by Dr. Fidel Clay. I did talk with Dr. Mumtaz Almodovar last night. I did also talk with Cardiology and this is a pacemaker and MRI, pacemaker wire friendly device. They may have talked about whether to consider an endoscopic ultrasound or an MRI with rectal coil to assess location of the tumor and thickness whether lymph nodes were involved, we will have to weigh [facility] [address] [address] CONSULTATION Name: RYAN SADLER Room #: 209-P DIS IN M.R.#: [id number] Admission: 08/20/19 Attend Phys: Raul Mcknight MD Discharge: 08/29/19 Date of : 38 Report #: [id number] this against the timing as to when the patient's diverticulitis inflammation may be improved. We will also defer a colorectal surgery, whether surgical attention to the sigmoid diverticula would be warranted or suggest at the time of surgery. The patient is aware that we do not know what stage of this is. CT chest is pending. This is probably unlikely at least a stage II perhaps stage III cancer. If it is a rectal cancer, the patient should consider neoadjuvant chemoradiation therapy. If it is sigmoid cancer then it is probably prudent to do surgery first to find the actual stage of the cancer. 2. Clostridium difficile. Continue his p.o. vancomycin. May consider Infectious Disease consult to help manage Clostridium difficile during upcoming future surgeries and possible other antibiotic exposure. 3. Diverticulitis. Continue current antibiotics. We will defer to colorectal surgery, whether to resect portions of this or not. 4. Pacemaker in situ for bradycardia. Per nurse who works with Dr. Cope, this appears to be an MRI friendly device, though we need to put an MRI mode before the MRI. 5. Atrial fibrillation, rate controlled meds per Cardiology. 6. Hypertension. Meds per Cardiology. 7. Diabetes, oral agents and sliding scale, insulin as appropriate. 8. Hyperlipidemia, statin agents. 9. Mood disorder, meds per others. 10. Peripheral vascular disease. Defer to others. We will be available to follow up with the patient. <ELECTRONICALLY SIGNED> By: Jan Gilbert MD 08/31/19 0707 0911 1053 Jan Gilbert MD /nt
== END 2019-08-29 18:35 | disposition home health service (06) | DRG 871 ==
LOC: ER 17:25 → EROBS 20:35 → ICU 20:35 → 2N 08-24 17:48
PROVIDERS: Hospitalist; Internal Medicine Gastroenterology; Nurse Practitioner; Nurse Practitioner Acute Care; Nurse Practitioner Family; Specialist; ADMIT Internal Medicine
DX: A41.9 Sepsis, unspecified organism (principal); E43 Unspecified severe protein-calorie malnutrition; R65.21 Severe sepsis with septic shock; R57.1 Hypovolemic shock; K57.31 Diverticulosis of large intestine without perforation or abscess with bleeding; A04.72 Enterocolitis due to Clostridium difficile, not specified as recurrent; D62 Acute posthemorrhagic anemia; E87.1 Hypo-osmolality and hyponatremia; E87.2 Acidosis; C19 Malignant neoplasm of rectosigmoid junction; I50.32 Chronic diastolic (congestive) heart failure; I13.0 Hypertensive heart and chronic kidney disease with heart failure and stage 1 through stage 4 chronic kidney disease, or unspecified chronic kidney disease; A09 Infectious gastroenteritis and colitis, unspecified; I48.92 Unspecified atrial flutter; N17.9 Acute kidney failure, unspecified; I48.20 Chronic atrial fibrillation, unspecified; N40.0 Benign prostatic hyperplasia without lower urinary tract symptoms; K21.9 Gastro-esophageal reflux disease without esophagitis; E78.00 Pure hypercholesterolemia, unspecified; E86.0 Dehydration; I95.9 Hypotension, unspecified; E88.09 Other disorders of plasma-protein metabolism, not elsewhere classified; N18.9 Chronic kidney disease, unspecified; E11.22 Type 2 diabetes mellitus with diabetic chronic kidney disease; E78.5 Hyperlipidemia, unspecified; F32.9 Major depressive disorder, single episode, unspecified; E11.51 Type 2 diabetes mellitus with diabetic peripheral angiopathy without gangrene; I48.91 Unspecified atrial fibrillation; I49.5 Sick sinus syndrome; D64.9 Anemia, unspecified; K59.00 Constipation, unspecified; R74.0 Nonspecific elevation of levels of transaminase and lactic acid dehydrogenase [LDH]; M10.9 Gout, unspecified; I08.3 Combined rheumatic disorders of mitral, aortic and tricuspid valves; I48.0 Paroxysmal atrial fibrillation; E87.6 Hypokalemia; I80.9 Phlebitis and thrombophlebitis of unspecified site; Z79.899 Other long term (current) drug therapy; Z79.84 Long term (current) use of oral hypoglycemic drugs; Z88.0 Allergy status to penicillin; Z95.0 Presence of cardiac pacemaker; Z68.25 Body mass index [BMI] 25.0-25.9, adult
CPT/HCPCS: 10078; 10081; 10203; 27000; 62110; 62900; 70005; 85076

== ENCOUNTER 2019-09-16 12:11 | Emergency (ER) | payer OTHER ==
[~2019-09-16] VITALS: Ht 170.2 cm; Wt 68.0 kg
[~2019-09-16 12:11] MED LIST changes: +DOXYCYCLINE HYC50 MG PO; +FIRVANQ50 MG/1 ML PO; +LASIX 40 MG TAB40 M2 PO
[2019-09-16 13:29] LABS: HEMATOCRIT 25.8 % (42.0-52.0); HEMOGLOBIN 8.4 gm/dL (14.0-18.0); MCH 29.7 pg (26.0-34.0); MCHC 32.5 g/dL (28.0-37.0); MCV 91.3 fL (80.0-100.0); PLATELET COUNT 309 thou/uL (150-400); RBC 2.82 mil/uL (4.50-6.00); RDW 17.9 % (10.5-14.5); WBC 6.6 thou/uL (4.0-11.0)
[2019-09-16 13:32] LABS: ANION GAP 8 mmol/L (7-16); BUN 13 mg/dL (7-18); CALCIUM 8.8 mg/dL (8.5-10.1); CHLORIDE 101 mmol/L (98-107); CO2 28 mmol/L (21-32); CREATININE 1.6 mg/dL (0.7-1.3); GLUCOSE 145 mg/dL (74-106); POTASSIUM 3.3 mmol/L (3.5-5.1); SODIUM 137 mmol/L (136-145)
[2019-09-16 13:42] LABS: ALBUMIN 2.1 g/dL (3.4-5.0); SGOT 27 U/L (15-37); SGPT 22 U/L (30-65); TOTAL BILIRUBIN 0.4 mg/dL (<0.1-1.0); TOTAL PROTEIN 7.3 g/dL (6.4-8.2); TROPONIN-I <0.06 ng/mL (<0.06)
[2019-09-16 14:47] LABS: URINE BILIRUBIN NEGATIVE (Negative); URINE BLOOD TRACE (Negative); URINE CLARITY CLEAR; URINE COLOR YELLOW; URINE GLUCOSE-RANDOM* NEGATIVE (Negative); URINE KETONES NEGATIVE (Negative); URINE LEUKOCYTES-REFLEX NEGATIVE (Negative); URINE NITRITE-REFLEX NEGATIVE (Negative); URINE PROTEIN (DIPSTICK) NEGATIVE (Negative); URINE UROBILINOGEN 0.2 E.U./dl (0.2-1.0)
[2019-09-16 15:05] LABS: ABSOLUTE NEUTROPHILS 3.6 thou/uL (1.4-8.2); ANISOCYTOSIS 1+; ATYPICAL LYMPHS 1 %
[2019-09-16] MEDS ORDERED: LEVAQUIN 750 M750 MG PO (15:41)
[2019-09-16 15:48] VITALS: BP 105/52
--- NOTE | 2019-09-17 08:13 | EKG ---
[address] [address] ELECTROCARDIOGRAM REPORT Name: RYAN SADLER Room #: DEP SHAD Zayas#: [id number] Admission: 09/16/19 Attend Phys: Discharge: 09/16/19 Date of : 38 Report #: [id number] THIS REPORT FOR: //name// [facility] ED Test Date: 2019-09-16 Test Time: 12:26:43 Pat Name: RYAN SADLER Department: Room: Gender: M Ep Technologist: [facility] : 1940 Requested By: Pepper Villegas Order Number: [id number] MD: Tommie Cope Measurements Intervals Bath Rate: 90 P: -8 SC: 171 QRS: -35 QRSD: 109 T: 70 QT: 416 QTc: 509 Interpretive Statements Sinus rhythm Left axis deviation Anteroseptal infarct, age indeterminate Compared to ECG 08/20/2019 18:00:38 Myocardial infarct finding now present Atrial flutter no longer present Poor R-wave progression no longer present Electronically Signed On 09-17-2019 8:12:41 DISPOSAL OPERATOR by Tommie Cope [email or web address] <ELECTRONICALLY SIGNED> By: Tommie Cope MD 09/17/19 0812 1226 1226 Tommie Cope MD /EPI
== END 2019-09-16 15:56 | disposition home or self-care (01) ==
LOC: ER 12:11
PROVIDERS: Emergency Medicine; Physician Assistant
DX: J18.9 Pneumonia, unspecified organism (principal); R42 Dizziness and giddiness; E78.00 Pure hypercholesterolemia, unspecified; I10 Essential (primary) hypertension; K21.9 Gastro-esophageal reflux disease without esophagitis; Z88.0 Allergy status to penicillin; E11.9 Type 2 diabetes mellitus without complications; Z79.899 Other long term (current) drug therapy; Z98.890 Other specified postprocedural states

== ENCOUNTER 2019-10-01 10:06 | Inpatient (IN) | payer OTHER ==
[~2019-10-01] VITALS: Ht 170.2 cm; Wt 78.9 kg
[~2019-10-01 10:06] MED LIST changes: +LEVAQUIN 750 M750 MG PO
[2019-10-01 10:08] VITALS: BP 123/59
[2019-10-01 11:03] LABS: HEMATOCRIT 22.6 % (42.0-52.0); MCH 30.6 pg (26.0-34.0); RBC 2.47 mil/uL (4.50-6.00)
[2019-10-01 11:05] LABS: HEMOGLOBIN 7.5 gm/dL (14.0-18.0); MCHC 33.3 g/dL (28.0-37.0); MCV 91.8 fL (80.0-100.0); PLATELET COUNT 162 thou/uL (150-400); RDW 20.9 % (10.5-14.5); WBC 7.5 thou/uL (4.0-11.0)
[2019-10-01 11:09] LABS: CALCIUM 8.6 mg/dL (8.5-10.1); CREATININE 1.7 mg/dL (0.7-1.3); POTASSIUM 3.6 mmol/L (3.5-5.1)
[2019-10-01 11:14] LABS: ALBUMIN 1.8 g/dL (3.4-5.0); DIRECT BILIRUBIN 0.2 mg/dL (<0.1-0.2); TOTAL BILIRUBIN 0.6 mg/dL (<0.1-1.0); TOTAL PROTEIN 6.9 g/dL (6.4-8.2)
[2019-10-01 12:53] LABS: ABSOLUTE NEUTROPHILS 3.5 thou/uL (1.4-8.2); METAMYELOCYTES 2 %
[2019-10-01 12:55] LABS: ANISOCYTOSIS 1+
[2019-10-01 15:13] VITALS: BP 92/62
[2019-10-01 16:00] VITALS: BP 104/57
[2019-10-01 16:42] VITALS: BP 103/60
--- NOTE | 2019-10-01 19:30 | NUR ---
PT ARRIVED FROM ED. PT LARGE LOOSE BM. UPDATED ON LABS.
[2019-10-01 19:38] VITALS: BP 116/71
[2019-10-01 23:52] VITALS: BP 112/78
[2019-10-02] VITALS (9 sets, daily range): BP systolic 76–116; BP diastolic 49–74
[2019-10-02 05:31] LABS: HEMATOCRIT 21.5 % (42.0-52.0); HEMOGLOBIN 7.1 gm/dL (14.0-18.0); MCH 30.3 pg (26.0-34.0); MCHC 32.8 g/dL (28.0-37.0); MCV 92.5 fL (80.0-100.0); RBC 2.33 mil/uL (4.50-6.00); RDW 20.9 % (10.5-14.5)
[2019-10-02 05:39] LABS: CALCIUM 8.1 mg/dL (8.5-10.1); CREATININE 1.6 mg/dL (0.7-1.3)
[2019-10-02 05:40] LABS: INR 1.3; PROTIME 13.3 Seconds (9.3-11.4)
[2019-10-02 08:06] LABS: % SATURATION 35 % (20-39); IRON 36 ug/dL (65-175); TIBC 103 ug/dL (250-450)
[2019-10-02 08:13] LABS: ABSOLUTE RETIC COUNT 0.0514 10^6/uL; OBSERVED RETIC COUNT 2.17 % (0.6-2.6)
[2019-10-02 08:40] LABS: FOLIC ACID 8.2 ng/mL (8.6-58.9)
--- NOTE | 2019-10-02 13:22 | NUR ---
ASSESSMENT-PT LIVES ALONE IN A HOME. HE SAYS HE DOES ALL OF HIS OWN COOKING, CLEANING AND LAUNDRY EXCEPT HE HAS A CLEANING PERSON THAT COMES MONTHLY. PT WAS WALKING ON HIS OWN AND STANDING FOR A SHOWER PRIOR TO THIS ADMISSION. HE HAS A ROLLER WALKER AND A SHOWER CHAIR AT HOME ALREADY. PT WAS DRIVING. PT HAS A SON THAT CHECKS ON HIM. PT HAS [facility] IN THE PAST BUT PREFERS [facility]. IF PT NEEDS REHAB HE WOULD LIKE TO GO TO [facility] IF POSSIBLE. EXPLAINED THAT INS WOULD HAVE TO APPROVE THIS. WILL AWAIT THERAPY REC. FOLLOWING TO ASSIST WITH DC PLANNING.
--- NOTE | 2019-10-02 15:56 | NUR ---
PT ALERT AND ORIENTED TIMES FOUR. VSS, 99%RA, SR ON TELE. PT DENIES PAIN/SOA. PT TOELARTES MEDS AND MEALS. PT FAMILY AT BEDSIDE THIS MORNING. PT SLOWLY PROGRESSING TOWRADS POC GOALS.
--- NOTE | 2019-10-03 04:35 | NUR ---
PATIENT IS ADVANCING SLOWLY IN HIS CARE PLAN. VITAL SIGNS STABLE WITH PATIENT HAVING NO COMPLAINTS OF PAIN OR NAUSEA. FULLY ALERT AND ORIENTED, PATIENT IS ABLE TO CALL APPROPRIATELY FOR NEEDS AND CONTRIBUTE IN HIS CARE. BREATHING STABLE ON ROOM AIR EVIDENCED BY ASSESSMENT AND SPOT OXYGENATION CHECKS. UP MULTIPLE TIMES TO BEDSIDE COMMODE WITH ASSISTANCE INCIDENT FREE. PATIENT GIVEN ANTIBIOTICS TO DOCTOR ORDER. CONTINUE PLAN OF CARE.
[2019-10-03 04:45] VITALS: BP 91/55
[2019-10-03 04:47] VITALS: BP 65/39; BP 73/45
[2019-10-03 06:36] LABS: HEMATOCRIT 23.2 % (42.0-52.0); HEMOGLOBIN 7.6 gm/dL (14.0-18.0); MCH 30.4 pg (26.0-34.0); MCHC 32.7 g/dL (28.0-37.0); RBC 2.49 mil/uL (4.50-6.00); RDW 21.4 % (10.5-14.5); WBC 6.5 thou/uL (4.0-11.0)
[2019-10-03 06:47] LABS: CALCIUM 7.6 mg/dL (8.5-10.1); CREATININE 1.5 mg/dL (0.7-1.3); MAGNESIUM 1.8 mg/dL (1.8-2.4); POTASSIUM 3.1 mmol/L (3.5-5.1)
--- NOTE | 2019-10-03 07:05 | HC ---
[facility] [place] [address] CONSULTATION Name: RYAN SADLER Room #: 359-P ADM IN M.R.#: [id number] Admission: 10/01/19 Attend Phys: Paulo Pérez MD Discharge: Date of : 38 Report #: [id number] THIS REPORT FOR: //name// CC: Paulo Almodovar MD DATE OF SERVICE: 10/01/2019 REQUESTING PHYSICIAN: Paulo Pérez M.D. REASON FOR CONSULTATION: Anemia and history of colorectal cancer. HISTORY OF PRESENT ILLNESS: The patient is a very pleasant 79-year-old male met last month when he was admitted for anemia, also had pacemaker placement and on colonoscopy was found to have a rectosigmoid adenocarcinoma. The patient as an outpatient reports that he has seen Dr. Clay. He reports having had what sounds like endoscopic ultrasound at [facility]. We will get a copy of this and based on his results, Dr. Clay is planning for surgery in early October. From my understanding, it sounds like Dr. Clay thinks this may be more of a sigmoid cancer and to proceed with surgery and hopefully the patient will need chemoradiation therapy. I may have had a discussion, but I could not find any notes in the office. We will get records from Dr. Clay's office. The patient denies recent headache, fevers or chills. Does have swallowing difficulties several weeks progressive his last EGD dilatation was about 2-1/[address] Fleming by his report. No fevers. He has lost some weight. He has also been progressively more short of air and winded. No leg swelling. He does have some slightly loose stool. He says it would cause diarrhea, no dysuria, no blood in his urine or stool. No skin rash. No arm or leg swelling. PAST MEDICAL HISTORY: Notable for the history of the adenocarcinoma at 15 cm that hopefully a sigmoid cancer. Await surgery. He did have a CT chest here that was unremarkable. Also, has a history of diverticulitis in the past, also pacemaker in situ placed by Dr. Cope recently. Also, atrial fibrillation. Also, hypertension, diabetes type 2, hyperlipidemia, mood disorder, peripheral vascular disease. SOCIAL HISTORY: Nonsmoker, no significant alcohol, retired. [address] [address] CONSULTATION Name: RYAN SADLER Room #: 359-P [facility]#: [id number] Admission: 10/01/19 Attend Phys: Paulo Pérez MD Discharge: Date of : 38 Report #: [id number] MEDICATIONS: At this time in the hospital currently include vancomycin 125 mg p.o. q.i.d., metronidazole q. 8 hours IV, not sure dose, amiodarone 200 mg daily, insulin on a sliding scale, meropenem 1 gram q. 12., nystatin 500,000 units q.i.d., swish and swallow, Tylenol p.r.n. and Zofran p.r.n. PHYSICAL EXAMINATION: GENERAL: The patient appears his stated age. VITAL SIGNS: Height is 5 feet 7 inches, which is 170.2 cm. Weight is 141 pounds, which is 63.96 kilograms. His weight, last time in the hospital is 162 pounds, on 09/16/2019 is 150 pounds. Blood pressure is 105/74 in the right arm, respirations 20, pulse 114 and afebrile at this time, 98.1. Last night at 2352 is 100.0 orally. MOOD: The patient is alert and pleasant. NEUROLOGIC: Speech and thought pattern appear to be normal. The patient is moving arms and legs appropriately. LYMPHATICS: No enlarged lymph nodes in the supraclavicular, cervical, axillary or inguinal region. ABDOMEN: Soft, without masses. EXTREMITIES: Without clubbing, cyanosis or edema. LABORATORY DATA: Notable for BUN of 23, creatinine 1.6. Hemoglobin 7.5 yesterday, 7.1 today. White count is 7, platelets 145. Liver functions normal. Chest x-ray had a questionable infiltrate. ASSESSMENT AND PLAN: 1. Colorectal cancer with recent hospitalization, sounds like from the patient's description, this is thought to be a sigmoid cancer. We will get an endoscopic ultrasound from [facility], also Dr. Clay's notes. I have paged it, but I have not yet heard back to clarify. 2. Dysphagia, last dilatation several years ago with Dr. Fleming. GI has been consulted. 3. Possible pneumonia, infiltrate on x-ray. Continues with meropenem, metronidazole. 4. Loose bowels, checking for Clostridium difficile. The patient is on p.o. vancomycin. 5. Anemia. We will check iron, B12, folate, erythropoietin level and retic count, may consider IV iron if iron deficient. Transfuse as needed to keep hemoglobin of 7 or if symptomatic at a lower level. 6. Diabetes type 2. Accu-Cheks and medications per others. 7. Chronic kidney disease stage 3. Watch hydration and medication doses. 8. [place]. [place]rito pacemaker in situ, per Cardiology. 9. Hyperlipidemia, most likely will continue statin at a later date. 10. Bladder issues. Will likely continue Flomax. 11. History of atrial fibrillation, medications per Cardiology. 12. Questionable history of gout per others. 13. Mood disorder. Continue same medications. [facility] [address] [place] [address] CONSULTATION Name: RYAN SADLER Room #: 359-P ADM IN M.R.#: [id number] Admission: 10/01/19 Attend Phys: Paulo Pérez MD Discharge: Date of : 38 Report #: [id number] We will follow with you. Note that the patient when he was discharged last time he was on the following medications, some of which may be restarted at a later date this hospital stay, but will defer to others. He was on pravastatin 20, pantoprazole 40, tamsulosin 0.4 q. 24, trazodone 50 at night, vitamin D2 1.25 mcg daily, omega 3 fatty acids 1000 mg a.m., amiodarone 200 mg daily, metoprolol 50 daily, furosemide 20 b.i.d., prednisone 5 daily, glimepiride 2 mg daily, metformin 500 b.i.d., and hydrocodone p.r.n. <ELECTRONICALLY SIGNED> By: Jan Gilbert MD 10/03/19 0705 0757 0820 MD tracey Marquez
[2019-10-03 07:42] VITALS: BP 103/57
--- NOTE | 2019-10-03 15:11 | NUR ---
SW reviewed chart and spoke with nursing and attending physician. Pt is slowly progressing towards goals for discharge. [facility] consulted to evaluate pt for possible admission to inpt acute rehab. Will need insurance authorization for post-acute care. SW met with pt at bedside to provide update and discuss post-acute plans. SW provided pt with list of in-network SNFs for review. Pt has been to [facility] recently, but would want to look at other options. SW is following to assist as needed with discharge planning.
[2019-10-03 16:22] VITALS: BP 120/76
--- NOTE | 2019-10-03 17:33 | NUR ---
PT REMAINS TIRED AND WEAK...RESTING PRN TODAY...5NO CONSULT PLACED...LIVES HOME ALONE AT PRESENT..
[2019-10-03 19:40] VITALS: BP 117/61
[2019-10-04 04:10] VITALS: BP 109/65
[2019-10-04 08:03] VITALS: BP 118/72
[2019-10-04 10:06] LABS: HEMOGLOBIN 8.4 gm/dL (14.0-18.0); MCH 30.1 pg (26.0-34.0); MCHC 32.4 g/dL (28.0-37.0); MCV 92.9 fL (80.0-100.0); RBC 2.8 mil/uL (4.50-6.00); RDW 21.3 % (10.5-14.5); WBC 6.4 thou/uL (4.0-11.0)
[2019-10-04 10:13] LABS: CALCIUM 8.6 mg/dL (8.5-10.1); CREATININE 1.7 mg/dL (0.7-1.3); MAGNESIUM 2.3 mg/dL (1.8-2.4); POTASSIUM 3.4 mmol/L (3.5-5.1)
--- NOTE | 2019-10-04 14:45 | NUR ---
SW reviewed chart and spoke with nursing and attending physician. Pt is receiving IV iron per hem/onc. Awaiting input from [facility] to determine if pt would be appropriate for inpt acute rehab. Will need insurance authorization for post-acute care. [facility] is following to assist as needed with discharge planning.
--- NOTE | 2019-10-04 15:07 | PATH ---
[facility] [place] [address] PATHOLOGY RPT PROCEDURE Name: RYAN SADLER Room #: 359-P ADM IN M.R.#: [id number] Admission: 10/01/19 Date of : 36 Discharge: Report #: [id number] Path Case #: [id number] [facility] Accession Number: [id number] . 01 Material submitted: . PART A: stomach - RANDOM GASTRIC BIOPSY PART B: esophagus - RANDOM ESOPHAGEAL BIOPSY TO R/O EOE . 01 Clinical history: . Dysphagia B. Rule out EOE . 02 Diagnosis: A. Gastric mucosa, random gastric, endoscopic biopsy: - Moderate active gastritis with fibrotic lamina propria and features of reactive gastropathy. - Negative for intestinal metaplasia or atrophy. - Negative for Helicobacter pylori (properly controlled immunohistochemical stain performed). - See comment. . B. Gastroesophageal mucosa, random esophageal, endoscopic biopsy: - Moderate active esophagitis. - PAS-D fungal special stain pending, to be reported as an addendum. - Gastric cardia-type mucosa with moderate active inflammation. . (IUV:floor sweeper; 10/03/2019) MBR 10/03/2019 1333 Local . 02 Comment: An intensive search for Helicobacter pylori-like organisms is negative. Absence of such organisms does not entirely exclude the possibility and may be due to sampling. Other possible etiologies may include chemical gastritis, autoimmune gastritis, gastritis associated with inflammatory bowel disease. Please correlate with clinical, endoscopic, and microbiological studies if clinically indicated. (IUV:floor sweeper; 10/03/2019) . 02 Addendum: . This addendum is issued subsequent to reviewing a properly controlled PAS-D fungal special stain performed on block B1. Rare yeast and pseudohyphal elements are present within the mucosal fragments obtained as "random esophageal" biopsy tissue. This might imply fungal etiology. Please correlate clinically and follow up as indicated. (IUV:pit; 10/03/2019) . Professional services performed by [facility] at [address] [place] [address] PATHOLOGY RPT PROCEDURE Name: RYAN SADLER Room #: 359-P [facility] IN .R.#: [id number] Admission: 10/01/19 Date of : 38 Discharge: Report #: [id number] Path Case #: [id number] RAFAEL Boothe [id number]. Technical services performed by [facility] at [address] [place] [address], [address], [place] [address]. MBR/10/04/2019 Addendum Electronically Signed by Angelic Martinez MD, Pathologist . 02 Electronically signed: . Angelic Martinez MD, Pathologist NPI- [id number] . 01 Gross description: . A. The specimen is received in formalin, labeled "Frandy, Ryan, random gastric BX" and consists of multiple fragments of pink-martinez tissue measuring 1.2 x 0.5 x 0.3 cm in aggregate which are entirely submitted in A1. . B. The specimen is received in formalin, labeled "Frandy, Ryan, random esophageal BX" and consists of multiple fragments of pink-martinez tissue measuring 0.9 x 0.8 x 0.2 cm in aggregate which are entirely submitted in B1. (SDY; 10/02/2019) SYU/SYU 10/02/2019 1615 Local . 02 Pathologist provided ICD-10: K29.50, K20.9 . 02 CPT . 415258, 157373, T88683, 119201 Specimen Comment: A courtesy copy of this report has been sent to [phone], [phone] Specimen Comment: [phone] Specimen Comment: Report sent to , and Performed at: [address], [place], [place] [id number] MD Ammon Torres MD Phone: [phone] Performed at: [address] [id number] MD Angelic Martinez MD Phone: [phone]
[2019-10-04 16:18] VITALS: BP 126/72
--- NOTE | 2019-10-04 18:00 | NUR ---
PT STATES HE REALLY WANTS TO TRANSFER TO [facility] WHEN STABLE TO [facility] HIMSELF PRIOR TO OCT 31 COLON RESECTION FOR POSSIBLE SIGMOID CANCER...HE HAS FELT WEAK AND VEGA A POOR APPETITE...WILL MONITOR..
[2019-10-04 20:19] VITALS: BP 111/63
--- NOTE | 2019-10-05 01:06 | NUR ---
AROUND 2114 NURSE NOTICED A DRASTIC JUMP IN PATIENTS HEART RATE. UPON FURTHER ASSESSMENT PATIENT WAS FOUND TO BE IN ATRIAL FIB IN THE 130-150 RANGE. A CALL WAS PLACED TO PROVIDER WITH NURSE RECEIVING ORDERS FOR BOTH PO AND IV PUSH METOPROLOL. PATIENTS BLOOD PRESSURE IN 110 SYSTOLIC RANGE WHEN GIVEN. WITHIN FIFTEEN MINUTES OF IVP LOPRESSOR NURSE WAS ALERTED TO PATIENTS COMPLAINTS OF CHEST PAIN. VITALS SHOWED PATIENT WITH BLOOD PRESSURE IN LOW 70'S SYSTOLIC. ORDERS RECEIVED FROM ENGINEERING DESIGNER FOR ONETIME BOLUS OF FLUIDS AND GI COCKTAIL. UPON LATER ASSESSMENT PATIENT STATED CHEST PAIN RESOLVED BUT HAD COMPLAINTS OF SHORTNESS OF AIR. ORDER FOR TWO LITERS NASAL CANNULA STARTED TO GOOD AFFECT. LAST BLOOD PRESSURE 85/50. NURSE TO CONTINUE CLOSE OBSERVATION AND ASSESSMENT.
[2019-10-05 03:04] VITALS: BP 90/55
[2019-10-05 04:02] VITALS: BP 89/56
--- NOTE | 2019-10-05 04:29 | NUR ---
CARE ASSUMED AT 1845. FULLY ORIENTED, PATIENT HAD NO COMPLAINTS OF NAUSEA. PATIENT DID COMPLAIN OF TRANSIENT CHEST PAIN FOLLOWING TREATMENT FOR ACCELERATED ATRIAL FIB IN 130-150 RANGE. SUBSEQUENT BLOOD PRESSURES WERE LOW WITH ORDERS RECEIVED FROM PROVIDER. FREQUENT ASSESSMENT AND OBSERVATION PROVIDED. EARLIER IN SHIFT PATIENT WAS ABLE TO TRANSFER TO BEDSIDE COMMODE WITH ASSISTANCE INCIDENT FREE. CONTINUE PLAN OF CARE.
[2019-10-05 07:45] VITALS: BP 89/54
--- NOTE | 2019-10-05 08:03 | HC ---
[facility] [place] [address] CONSULTATION Name: RYAN SADLER Room #: 359-P ADM IN M.R.#: [id number] Admission: 10/01/19 Attend Phys: Paulo Pérez MD Discharge: Date of : 38 Report #: [id number] THIS REPORT FOR: //name// CC: Paulo Bellamy CARDIOLOGY CONSULTATION INDICATION: Atrial flutter. HISTORY OF PRESENT ILLNESS: This is an 79-year-old gentleman with a history of tachy-ana syndrome, status post permanent pacemaker, atrial fibrillation, atrial flutter, GI bleed, anemia, colon cancer, diabetes mellitus, hypertension, chronic renal insufficiency, depression and diverticulitis. He was admitted with weakness, dyspnea and difficulty swallowing. He has a prior history of anemia, status post blood transfusion. On this admission, his hemoglobin has been stable and has not required another transfusion. He did undergo a GI procedure, undergoing dilatation of his esophagus. There is evidence for hemorrhagic gastritis. During this admission, he was noted to have fast heart rates into the 130-150 beats per minute range. He is presently in sinus rhythm. Review of his telemetry reveals atrial flutter with rapid rates. He offers no complaints of angina or lightheadedness. PAST MEDICAL HISTORY: Echo reveals normal LV systolic function from 07/2019, tachy-ana syndrome, status post permanent pacemaker, paroxysmal atrial fibrillation/atrial flutter, on amiodarone. He is not on anticoagulation therapy due to recent history of GI bleed requiring blood transfusions. Diabetes mellitus, hypertension, renal insufficiency. ALLERGIES: PENICILLIN. MEDICATIONS AT HOME: Include Pravachol 20 mg, tamsulosin, furosemide 40 mg, amiodarone 200 mg daily and glimepiride. SOCIAL HISTORY: Denies tobacco use. FAMILY HISTORY: Negative for premature CAD. REVIEW OF SYSTEMS: A full 10-point review of systems performed. Only the pertinent positives and negatives are described in the HPI. PHYSICAL EXAMINATION: VITAL SIGNS: Blood pressure is 120/70, heart rate is 60 beats per minute. GENERAL APPEARANCE: This is a well-developed, well-nourished male in no acute distress. HEENT: Normocephalic, atraumatic. Oral mucosa moist. NECK: Supple. [facility] [address] [place] [address] CONSULTATION Name: RYAN SADLER Room #: 359-[facility] IN M.R.#: [id number] Admission: 10/01/19 Attend Phys: Paulo Pérez MD Discharge: Date of : 38 Report #: [id number] LUNGS: Clear to auscultation. CARDIAC: Regular rate and rhythm, S1, S2 positive. ABDOMEN: Soft, nontender. EXTREMITIES: No edema, no cyanosis. LABORATORY VALUES: White count 6.4, hemoglobin is 8.4, platelet count is 129. Sodium is 132, creatinine is 1.7. ASSESSMENT AND PLAN: 1. Paroxysmal atrial flutter, had rapid heart rates, but has converted to sinus rhythm. Presently on amiodarone, we will increase the dose to b.i.d. dosing for now. No anticoagulation in view of his history of GI bleed. Will require surgery for his colon cancer in the near future. 2. Pneumonia, continued antibiotics. 3. Dysphagia, status post esophageal dilatation as per GI service. 4. Anemia, continue to follow hemoglobin levels. 5. Diabetes mellitus, continue with medications and check fingersticks. 6. Colorectal cancer, surgery planned in the near future. 7. Permanent pacemaker, interrogation reveals a normal functioning device. <ELECTRONICALLY SIGNED> By: Samy Boothe MD 10/05/19 [id number] Samy Boothe MD /nt
[2019-10-05 08:28] VITALS: BP 98/65
--- NOTE | 2019-10-05 14:18 | NUR ---
PATIENT'S INSURANCE, [employer], CALLED AND DENIED AUTHORIZATION FOR ACUTE REHAB STAY. DENIAL BASED ON LACK OF MEDICAL NEED FOR ACUTE REHAB LEVEL OF CARE. ADVISED BY [employer]ACING SUPERVISOR TO HAVE PT/OT DOCUMENT WITH THROUGH NOTES ON LEVEL OF FUNCTION PRIOR TO RESUBMITTING FOR SNF AUTHORIZATION. IF PEER TO PEER IS DESIRED FOR ACUTE REHAB REQUEST, IT MUST BE ARRANGED BY CALLING [phone]. PEER TO PEER MUST BE COMPLETED BY TUESDAY, 10/15, BY NOON. [employer] INFORMED OF ABOVE. PATIENT HAD ASKED ABOUT SELF PAY FOR ACUTE REHAB IF DENIED BY INSURANCE. COST PER DAY FOR ACUTE REHAB WOULD BE $1700.00. [employer] DEVELOPER ATTEMPTED TO SEE PATIENT TWICE THIS DATE WITH INFORMATION AND PATIENT WAS UNAVAILABLE BOTH TIMES. INFORMATION SHARED WITH PICKER AND PACKER WHO WILL SPEAK WITH PATIENT ABOUT HIS OPTIONS. THANK YOU FOR THIS REFERRAL.
--- NOTE | 2019-10-05 15:36 | NUR ---
MOIRA reviewed chart and spoke with nursing and attending physician. Pt's insurance denied inpt acute rehab. Consult received that pt was interested in paying privately for 5N. MOIRA discussed with 5N rehabilitation program manager who states that the cost would $1700/day. Pt is currently off the unit having an EGD. Pt is on IV iron. Will need insurance authorization for post-acute placement. No weekding discharge planned. MOIRA is following to assist as needed with discharge planning.
[2019-10-05 16:01] VITALS: BP 114/72
--- NOTE | 2019-10-05 16:31 | NUR ---
DISCHARGE PLANNING. POST ACUTE RECOMMENDED AT DISCHARGE. ANTICIPATED DISCHARGE PLANNED FOR BEGINNING OF NEXT WEEK. PATIENT REFERRAL FAXED TO [facility] PER REQUEST. CALL PLACED TO [facility] ADMISSIONS TO NOTIFY. ANNEMARIE STATES [facility] WILL NOT HAVE BED AVAILABLE NEXT WEEK. PATIENT REFERRAL FAXED TO [facility]. CALL PLACED TO [facility] MANCUSO ADMISSIONS TO NOTIFY. AWAITING RESPONSE. FOLLOWING.
--- NOTE | 2019-10-05 19:33 | NUR ---
pt is A&OX3, PT is tolerated EGD and dilation esophagus today, pt's vs are stable , pt denies pain and n/v, pt starts eating soft diet.
[2019-10-05 19:41] VITALS: BP 116/71
--- NOTE | 2019-10-05 23:30 | NUR ---
PATIENT IS ALERT AND ORIENTED. PATIENT VITAL ARE STABLE. EGD DILATION TODAY. PATIENT DENIES PAIN. REPORT WAS GIVEN AT 2250. WCM PATIENT RESTNG COMFORTABLY.
[2019-10-06] VITALS (7 sets, daily range): BP systolic 100–120; BP diastolic 50–70
[2019-10-06 03:34] LABS: HEMATOCRIT 22.4 % (42.0-52.0); HEMOGLOBIN 7.4 gm/dL (14.0-18.0); MCH 30.6 pg (26.0-34.0); MCHC 32.9 g/dL (28.0-37.0); RBC 2.4 mil/uL (4.50-6.00); RDW 22.3 % (10.5-14.5); WBC 8.6 thou/uL (4.0-11.0)
[2019-10-06 03:41] LABS: CALCIUM 7.9 mg/dL (8.5-10.1); CREATININE 1.5 mg/dL (0.7-1.3); MAGNESIUM 2.1 mg/dL (1.8-2.4); POTASSIUM 4.1 mmol/L (3.5-5.1)
--- NOTE | 2019-10-06 03:49 | NUR ---
CARE ASSUMED AT 2200. PT ALERT AND ORIENTED. ISOLATION MAINTAINED. VITALS STABLE. DENIES CHEST PAIN. A LITTLE SOB , O2 2L INITIATED FOR COMFORT. NO FURTHER CONCERNS. CONTINUES WITH ABX, NO FEVER. WILL FOLLOW POC
[2019-10-06 12:42] LABS: BE(vivo) -2.7 mmol/L (-2 to +3); PO2 64.2 mmHg (80.0-100.0); pH 7.514 (7.360-7.450); sO2 94.8 % (92.0-98.0)
[2019-10-06 12:44] LABS: PCO2 24.1 mmHg (35.0-45.0)
[2019-10-06 19:39] LABS: HEMATOCRIT 26.3 % (42.0-52.0); HEMOGLOBIN 8.6 gm/dL (14.0-18.0)
[2019-10-06 19:41] LABS: CALCIUM 8.1 mg/dL (8.5-10.1); CREATININE 1.7 mg/dL (0.7-1.3); POTASSIUM 4.6 mmol/L (3.5-5.1)
[2019-10-06 19:42] LABS: MAGNESIUM 1.9 mg/dL (1.8-2.4)
--- NOTE | 2019-10-06 20:25 | NUR ---
pt is A&OX3, PT starts SOB and HR 120-140 about 0900am, RN has reported to DRS , new order received,pt starts amiodarone iv drip, and 1 unit blood transfusion ( hgb7.4), lasix 40mg iv bid, and continuing o2 2L/MIN/NC, PT'S HR has improved, PT'S CTA results show no PE, PT'S blood transfusion finished about 1800pm, no reaction by this time.pt's vs are stable .
[2019-10-07 03:47] VITALS: BP 110/65
[2019-10-07 03:55] LABS: HEMATOCRIT 25.3 % (42.0-52.0); HEMOGLOBIN 8.4 gm/dL (14.0-18.0); MCHC 33.1 g/dL (28.0-37.0); MCV 90.6 fL (80.0-100.0); PLATELET COUNT 88 thou/uL (150-400); RBC 2.79 mil/uL (4.50-6.00); RDW 22.7 % (10.5-14.5); WBC 10.4 thou/uL (4.0-11.0)
--- NOTE | 2019-10-07 04:07 | NUR ---
Patient making slow progress towards outcome goals. Denies pain. Loose mucusy brown stools. Vital signs stable. Rhythm unchanged Afib, rate 90's to low 100's. High fall risks, fall precautions in place. Uses call light appropriately for needs. Amiodarone drip infusing, also taking po amiodarone. Oxygenation optimal with 2L oxygen per NC, patient still c/o SOA, orders received for Albuterol breathing treatment with some relief. Starting to diurese fro IV Lasix.
[2019-10-07 04:11] LABS: ALBUMIN 1.6 g/dL (3.4-5.0); CALCIUM 8.3 mg/dL (8.5-10.1); CREATININE 1.6 mg/dL (0.7-1.3); POTASSIUM 4.4 mmol/L (3.5-5.1); TOTAL PROTEIN 6.2 g/dL (6.4-8.2)
--- NOTE | 2019-10-07 04:12 | NUR ---
Lactic acid elevated 6, reported and orders receive to recheck in 6 hours. Most recent Lactic acid down to 2.5.
[2019-10-07 05:46] LABS: ABSOLUTE NEUTROPHILS 5.3 thou/uL (1.4-8.2); ANISOCYTOSIS 3+; ATYPICAL LYMPHS 5 %; LARGE PLATELETS FEW; METAMYELOCYTES 1 %; NUCLEATED RBCS 5 /100WBC; POLYCHROMASIA 2+
[2019-10-07 05:47] LABS: PLATELET ESTIMATE DECREASED
[2019-10-07 07:46] VITALS: BP 82/54
[2019-10-07 09:25] VITALS: BP 93/57
[2019-10-07 15:11] VITALS: BP 101/66
--- NOTE | 2019-10-07 16:21 | NUR ---
pt is A&OX3, PT is continuing o2 2L/MIN/NC, IV ABX, and amiodarone 0.5mg/min ( 16.7ml/hr), pt's HR keep at 80-112, pt's SOB has some improved, pt has started digoxin today, pt gets up to chair with assist.pt's vs and o2sat are stable at this time.
[2019-10-07 19:23] VITALS: BP 97/67
[2019-10-08] VITALS (18 sets, daily range): BP systolic 93–129; BP diastolic 54–87
--- NOTE | 2019-10-08 04:07 | NUR ---
ASSUMED PT CARE AT 2100. VSS. PT A&0X4. NO DIARRHEA THIS SHIFT, STILL AFIB ON THE MONITOR, HR WENT UP TO 113 LAST NOC BUT OTHERWISE HR WAS LESS THAN 105 ALL NIGHT. PT IS STABLE, HAD AN UNEVENTFULL NOC, SLEPT THROIUGH THE NOC. NO COMPLAINTS OF PAIN OR DISCOMFORT. WILL OCNTINUE TO MONITOR PER POC.
[2019-10-08 05:52] LABS: CALCIUM 8.1 mg/dL (8.5-10.1); CREATININE 1.6 mg/dL (0.7-1.3); POTASSIUM 3.5 mmol/L (3.5-5.1)
[2019-10-08 07:50] LABS: HEMATOCRIT 24.4 % (42.0-52.0)
[2019-10-08 07:52] LABS: MCH 29.8 pg (26.0-34.0); MCHC 32.8 g/dL (28.0-37.0); MCV 90.9 fL (80.0-100.0); RBC 2.68 mil/uL (4.50-6.00); RDW 22.1 % (10.5-14.5); WBC 6.8 thou/uL (4.0-11.0)
[2019-10-08 07:56] LABS: CALCIUM 8.1 mg/dL (8.5-10.1); CREATININE 1.4 mg/dL (0.7-1.3)
[2019-10-08 07:57] LABS: POTASSIUM 3.8 mmol/L (3.5-5.1)
[2019-10-08 14:02] LABS: BE(vivo) 0.2 mmol/L (-2 to +3); HCO3 21.4 mmol/L (22.0-26.0); pH 7.579 (7.360-7.450); sO2 95.5 % (92.0-98.0)
[2019-10-08 14:03] LABS: PCO2 23.4 mmHg (35.0-45.0)
--- NOTE | 2019-10-08 14:50 | NUR ---
PT is A&OX3, but pt still SOB with o2 3L/MIN/NC and fast 25-27, RN has called DR MILLER to report abnormal chest X-RAY and critical ABG results, New order to transfer to ICU at 1440pm, report has giving, pt's son has notied.
--- NOTE | 2019-10-08 15:11 | NUR ---
PT TX FROM 3W AT 1450. PLACED ON MONITOR. RT CALLED TO SET UP BIPAP. ORDERS CHECKED. NO NEW COMPLAINTS.
--- NOTE | 2019-10-08 15:33 | NUR ---
SW reviewed chart and spoke with nursing and attending physician. Pt is slowly progressing towards goals for discharge. Pt needing SNF placement at time of discharge. [facility] does not have any beds available this week. Awaiting input from [facility]. Will need insurance authorization. SW met with pt at bedside to provide update. Pt verbalized understanding. Pt transferred to ICU this afternoon due to respiratory problems. SW updated ICU SW and RN CM. Following to assist as needed with discharge planning.
--- NOTE | 2019-10-08 16:58 | NUR ---
Pt TRANSFERRED TO ICU THIS AFTERNOON. WILL NEED NEW PT ORDERS TO RESUME PT INTERVENTIONS WITH Pt WHEN MEDICALLY APPROPRIATE D/T TRANSFER TO HIGHER LEVEL OF CARE.
[2019-10-09] VITALS (24 sets, daily range): BP systolic 95–117; BP diastolic 40–75
--- NOTE | 2019-10-09 05:55 | NUR ---
ASSUMED CARE OF PATIENT AT 1900. VSS, AFEBRILE. UP TO BSC X3 FOR LARGE LOOSE BM. SOA ON EXERTION. NEEDS FREQUENT ENCOURAGEMENT TO BE MORE ACTIVE. BIPAP ON THROUGH THE NIGHT, TOLERATES WELL. ST UNTILL ABOUT 0200, THEN A PACED. WORKING TOWARDS POC GOALS.
[2019-10-09 06:51] LABS: HEMATOCRIT 22.1 % (42.0-52.0); HEMOGLOBIN 7.3 gm/dL (14.0-18.0); MCH 30.1 pg (26.0-34.0); MCHC 32.9 g/dL (28.0-37.0); MCV 91.5 fL (80.0-100.0); RBC 2.41 mil/uL (4.50-6.00); RDW 22.2 % (10.5-14.5)
[2019-10-09 07:04] LABS: CALCIUM 8.5 mg/dL (8.5-10.1); CREATININE 1.7 mg/dL (0.7-1.3); POTASSIUM 4.1 mmol/L (3.5-5.1)
--- NOTE | 2019-10-09 07:09 | NUR ---
PATIENT TRANSFERRED TO ICU. PATIENT ON HOLD FOR O.T DUE TO CHANGE IN STATUS. NEW ORDERS NEEDED WHEN/IF APPROPRIATE.
--- NOTE | 2019-10-09 10:55 | NUR ---
ASSUMED CARE @ 0700 10/09/19, PT ASSESSMENTS AND VSS COMPLETE PER ICU PROTOCOL. DR ANTONIO ENGLAND HERE TO ROUND, DR INFORMED BY ME ABOUT THE SWOLLEN LEFT ARM, ULTRASOUND ORDERED, RESULTS RECIEVED. DR ENGLAND PAGED. PT TAKEN DOWN FOR VIDEO SWALLOW EVALUATION. NO COMPLICATION NOTED DURING TRANSFER.
[2019-10-09 11:59] LABS: HEMOGLOBIN 7.8 gm/dL (14.0-18.0); INR 1.5; PROTIME 15.7 Seconds (9.3-11.4)
[2019-10-09 12:01] LABS: HEMATOCRIT 23.9 % (42.0-52.0); MCH 29.9 pg (26.0-34.0); MCHC 32.4 g/dL (28.0-37.0); MCV 92.2 fL (80.0-100.0); RBC 2.59 mil/uL (4.50-6.00); RDW 21.9 % (10.5-14.5); WBC 4.3 thou/uL (4.0-11.0)
--- NOTE | 2019-10-09 12:02 | 2DMMODE ---
[facility] [address] [place] [address] 2 D/M-MODE ECHOCARDIOGRAM Name: RYAN SADLER Room #: 244-P ADM IN M.R.#: [id number] Admission: 10/01/19 Attend Phys: Paulo Pérez MD Discharge: Date of : 38 Report #: [id number] THIS REPORT FOR: //name// APPROVED REPORT Study performed: 10/09/2019 11:11:48 EXAM: Comprehensive 2D, Doppler, and color-flow Echocardiogram Patient Location: ICU Room #: [facility] Status: routine BSA: 1.75 HR: 55 bpm BP: 114/64 mmHg Rhythm: Sinus arrhythmia Indications Dyspnea Hx: Pacemaker, AFIB 2D Dimensions RVDd: 40.22 mm IVSd: 10.04 (7-11mm) LVOT Diam: 23.59 (18-24mm) LVDd: 51.20 mm PWd: 10.14 (7-11mm) Ascending Ao: 39.98 (22-36mm) LVDs: 38.17 (25-40mm) Aortic Root: 43.69 mm Volumes Left Atrial Volume (Systole) Single Plane 4CH: 68.02 mL Single Plane 2CH: 70.18 mL LA ESV Index: 45.00 mL/m2 Aortic Valve AoV Peak Pako.: 1.44 m/s AO Peak Gr.: 8.33 mmHg LVOT Max P.31 mmHg LVOT Max V: 0.91 m/s ANTHONY Vmax: 2.75 cm2 Mitral Valve E/A Ratio: 0.8 MV Decel. Time: 214.57 ms MV E Max Pako.: 0.81 m/s MV A Pako.: 0.99 m/s MV PHT: 62.23 ms [facility] [address] [place] [address] 2 D/M-MODE ECHOCARDIOGRAM Name: RYAN SADLER Room #: 244-P [facility] IN [facility].#: [id number] Admission: 10/01/19 Attend Phys: Paulo Pérez MD Discharge: Date of : 38 Report #: [id number] IVRT: 87.66 ms Pulmonary Valve PV Peak Pako.: 1.02 m/s PV Peak Gr.: 4.13 mmHg Pulmonary Vein P Vein S: 0.48 m/s P Vein A: 0.30 m/s P Vein D: 0.38 m/s P Vein A Dur.: 120.0 msec P Vein S/D Ratio: 1.26 Tricuspid Valve TR Peak Pako.: 3.14 m/s RAP Estimate: 10.00 mmHg TR Peak Gr.: 40.00 mmHg PA Pressure: 50.00 mmHg Left Ventricle The left ventricle is normal size. There is normal left ventricular wall thickness. Left ventricular systolic function is normal. LVEF is 55%. Mild diastolic dysfunction is present (impaired relaxation pattern). Right Ventricle Right ventricle is at the upper limits of normal. The right ventricular systolic function is normal. Pacemaker lead is present in the right ventricle. Atria Left atrium is moderately dilated. Right atrium is at the upper limits of normal. Aortic Valve The aortic valve is normal in structure. Leaflets are mildly calcified. Mild aortic regurgitation. There is no aortic valvular stenosis. Mitral Valve The mitral valve is normal in structure. Moderate mitral annular calcification. Mild mitral regurgitation. No evidence of mitral valve stenosis. Tricuspid Valve The tricuspid valve is normal in structure. Mild tricuspid regurgitation. Estimated PAP is 50mmHg. Pulmonic Valve The pulmonary valve is normal in structure. Mild to moderate pulmonic [facility] [address] [place] [address] 2 D/M-MODE ECHOCARDIOGRAM Name: RYAN SADLER Room #: 244-P [facility] IN M.R.#: [id number] Admission: 10/01/19 Attend Phys: Paulo Pérez MD Discharge: Date of : 38 Report #: [id number] regurgitation. Great Vessels Aortic root is dilated at 4.4cm. Ascending aorta is dilated at 4.0cm. IVC is dilated and collapses >50% with inspiration. Pericardium There is no pericardial effusion. Left pleural effusion. <Conclusion> The left ventricle is normal size. There is normal left ventricular wall thickness. Left ventricular systolic function is normal. Mild diastolic dysfunction is present (impaired relaxation pattern). Right ventricle is at the upper limits of normal. Pacemaker lead is present in the right ventricle. Left atrium is moderately dilated. Mild aortic regurgitation. Mild mitral regurgitation. Mild tricuspid regurgitation. Estimated PAP is 50mmHg. Left pleural effusion. <ELECTRONICALLY SIGNED> By: Samy Boothe MD 10/09/19 120 00 00 Samy Boothe MD /INF
[2019-10-09 13:07] LABS: ANA INTERPRETATION Negative (Negative)
--- NOTE | 2019-10-09 16:09 | NUR ---
VASCULAR ACCESS TEAM CONSULTED FOR PICC LINE. DISCUSSED WITH FAMILY THAT PICC IS NOT APPROPRIATE DUE TO CURRENT OCCLUSION ON SEVERAL VESSELS IN LEFT ARM. PLATELETES CURRENTLY TOO LOW FOR SAFE INSERTION OF CVAD BY VASCULAR ACCESS TEAM. 2ND PIV INSERTED. DISCUSSED ABOVE WITH PT'S NURSE.
[2019-10-10] VITALS (30 sets, daily range): BP systolic 84–122; BP diastolic 43–68
--- NOTE | 2019-10-10 02:25 | NUR ---
ASSUMED CARE OF PT AT 1900 YESTERDAY. BLOOD GLUCOSE AT HS WAS > 400. PT HAD BEEN INCREASED TO MOD DOSE SLIDING SCALE INSULIN LATE YESTERDAY. PT WAS GIVEN 20 UNITS AND Mary Jo CHAUHAN MARITIME GUARD NOTIFIED. PT'S GLUCOSE RECHECKED ABOUT MN, WHICH WAS STILL ELEVATED > 350. MARITIME GUARD NOTIFIED AND ORDERED 20 MORE UNITS OF HUMALOG. PER REPORT, PT HAD NOT VOIDED SINCE AROUND NOON. PT ASKED TO ATTEMPT TO VOID AND WAS ABLE TO VOID 150 CC OF DARK, ALMOST BROWN, URINE. MARITIME GUARD ALSO NOTIFIED OF THIS AND THAT PT HAD NOT BEEN TAKING MUCH PO LIQUIDS NOR HAD HE BEEN GETTING MAIN. IVF. 500 CC NS BOLUS ORDERED TO RUN OVER 5 HOURS AND LA CATH PLACED. PT HAS HAD SOME DISCOMFORT FROM THE LA. EXPLAINED TO PT THE IMPORTANCE OF THE LA CATH AND TYLENOL WAS GIVEN TO HELP WITH THE DISCOMFORT. PT REPORTED IMPROVEMENT IN DISCOMFORT. APTT WAS CRITICALLY HIGH THIS MORNING. HEPARIN GTT WAS ADJUSTED PER PROTOCOL AND MARITIME GUARD NOTIFIED. WILL CONTINUE TO MONITOR.
[2019-10-10 03:10] LABS: HEMOGLOBIN 7.5 g/dL (13.0-17.7)
[2019-10-10 07:59] LABS: MCHC 32.7 g/dL (28.0-37.0)
[2019-10-10 08:00] LABS: RBC 2.13 mil/uL (4.50-6.00); RDW 21.7 % (10.5-14.5); WBC 4.9 thou/uL (4.0-11.0)
[2019-10-10 08:19] LABS: MCV 91.6 fL (80.0-100.0)
[2019-10-10 08:23] LABS: CALCIUM 8.5 mg/dL (8.5-10.1); CREATININE 2.1 mg/dL (0.7-1.3); HEMATOCRIT 19.5 % (42.0-52.0); HEMOGLOBIN 6.4 gm/dL (14.0-18.0); POTASSIUM 3.7 mmol/L (3.5-5.1)
[2019-10-10 15:45] LABS: FIBRINOGEN 215.1 mg/dL (210-360)
--- NOTE | 2019-10-10 17:58 | NUR ---
PATIENT AWAKE AND ALERT MOST OF THE DAY, VITALS STABLE AND DENIES PAIN. HGB LOW EARLIER TODAY AND ORDERS RECEIVED FOR TRANSFUSION. PATIENT TRANSFUSED 1 UNIT OF PRBC W/O ANY REACTION. ON 4L OF O2 DURING THE DAY AND BIPAP IN THE ROOM FOR HS USE. TOLERATING DIET W/O NAUSEA. ENSURE BID. C/O DRY MOUTH AND PATIENT HAS NYSTATIN SWISH/SPIT. LA WITH LOW URINE OUTPUT AND MDs AWARE, ENCOURAGED TO INCREASE FLUID INTAKE AND IVF STARTED. SON UPDATED BY MDs THEY ROUNDED. WILL CONTINUE WITH POC.
--- NOTE | 2019-10-10 23:30 | NUR ---
Pt requesting break from BiPAP mask. Pt states he is feeling some chest pain, worse when coughing. Does not believe it is his heart but asking if his heart rhythm is normal. Monitor showing A-Paced at 60bpm. 12 lead EKG obtained. Mary Jo Young APRN called with update. Order rec'd for morphine 2mg IV.
[2019-10-11] VITALS (22 sets, daily range): BP systolic 97–130; BP diastolic 45–75
--- NOTE | 2019-10-11 00:45 | NUR ---
Chest discomfort relieved. Pt states same thing happened the previous night. Emotional support given. Pt repositioned for comfort. Pt denies further complaints.
--- NOTE | 2019-10-11 07:00 | NUR ---
Unable to obtain AM labs. Left arm limb alert d/t swelling and dvt. Right arm has PIV x 2. Multiple previous lab draws right hand. Entry Operator x 2 unable to obtain blood for am labs. Report to oncoming shift. Pt in need of central line for lab draws, IV antibiotics, and heparin gtt.
--- NOTE | 2019-10-11 07:11 | NUR ---
late entry for 10/10/19-pt w very freq loose stools thru-out day.called at least hrly for use of bedpan.skin intact to bottom,sl red.pericream applied p q loose stool.--vw
--- NOTE | 2019-10-11 10:44 | NUR ---
VASCULAR ACCESS CONSULTED FOR MIDLINE. PT HAS CURRENT THROMBUS IN LEFT ARM, DISCUSSED WITH PT AND FAMILY TWO DAYS AGO THAT PICC AND MIDLINE IS VERY HIGH RISK FOR THROMBUS AGAIN, FAMILY VERBALIZED UNDERSTANDING AND DID NOT WANT TO RISK GETTING CLOTS IN RIGHT ARM. PT HAS PIV THAT ARE WORKING BUT ML ORDERED FOR BLOOD DRAWS. EXPLAINED TO ISAIAS BASSETT THAT WITH ML THERE IS NO GAURANTEE TO BE ABLE TO DRAW LABS. PLATELETES REMAIN TOO LOW SOR SAFE INSERTION OF CENTRAL LINE BY VASCULAR TEAM
--- NOTE | 2019-10-11 11:03 | NUR ---
Nutrition: Folate 8.2. REC order folate supplementation.
[2019-10-11 15:07] LABS: HEMATOCRIT 23.7 % (42.0-52.0); MCH 30.4 pg (26.0-34.0); MCHC 33.6 g/dL (28.0-37.0); MCV 90.6 fL (80.0-100.0); RBC 2.61 mil/uL (4.50-6.00); RDW 20.2 % (10.5-14.5); WBC 2.9 thou/uL (4.0-11.0)
[2019-10-11 15:12] LABS: CALCIUM 8.2 mg/dL (8.5-10.1); CREATININE 2.5 mg/dL (0.7-1.3); POTASSIUM 3.8 mmol/L (3.5-5.1)
--- NOTE | 2019-10-11 15:12 | NUR ---
5N rehab medicine is following. Pt remains in ICU. Dc timeframe is uncertain. Will follow along for possible rehab stay pending his progress. Insurance auth would be needed.
--- NOTE | 2019-10-11 16:17 | NUR ---
ASSESSMENTS AND INTERVENTIONS DOCCUMENTED. PATIENT RESTING DURING SHIFT CHANGE. SON ROSETTA AT BEDSIDE. FAMILY EDUCATED AND UPDATED ABOUT POC. SON REQUESTING TO SPEAK WITH A PHYSCIAN. DR. BOCANEGRA PAGED AND CONTACT INFORMATION FOR ROSETTA GIVEN. DR. MILLER AT BEDSIDE DISCUSSING BRONCH. FAMILY EXPRESSED UNDERSTANDING OF PROCEDURE AND ITS COMPLICATIONS. BROCH SCHEDULED FOR 10/12/19. LAB UNABLE TO DRAW MORNING LABS DESPITE MULTIPLE ATTEMPTS. ORDERS FOR IR MIDLINE RECIEVED. IR PAGED. A LINE WAS PLACED AND PATIENT TOLERATED IT WELL. THE POC IS TO CONTINUE TO MONITOR LABS AND TREAT CAUSE OF INFECTION.
[2019-10-12] VITALS (53 sets, daily range): BP systolic 98–144; BP diastolic 51–78
--- NOTE | 2019-10-12 00:49 | NUR ---
Pt placed on Bipap at 2130 for sleep. At 0030 pt requested to go back on 6 L nasal canula. Sat 93% on canula.
--- NOTE | 2019-10-12 01:58 | NUR ---
Pt back on bipap per his request.
--- NOTE | 2019-10-12 06:02 | NUR ---
Pt has been on bipap most of night with intermittent breaks. Desaturates easily when on nasal canula. Having maroon colored liquid stools. Remains on heparin for left arm DVT. Urine output approximately 40 cc/hr.
[2019-10-12 06:07] LABS: HEMOGLOBIN 6.9 gm/dL (14.0-18.0); MCH 29.7 pg (26.0-34.0); RBC 2.32 mil/uL (4.50-6.00); WBC 2.4 thou/uL (4.0-11.0)
[2019-10-12 06:09] LABS: MCHC 32.8 g/dL (28.0-37.0); MCV 90.7 fL (80.0-100.0)
[2019-10-12 06:13] LABS: CALCIUM 8.6 mg/dL (8.5-10.1); CREATININE 2.5 mg/dL (0.7-1.3); POTASSIUM 4.1 mmol/L (3.5-5.1)
--- NOTE | 2019-10-12 08:58 | NUR ---
BEDSIDE BRONCH BY DR MILLER AT BEDSIDE COMPLETED, O2 INCREASED TO 10/NC HIGH FLOW O2. SPECIMENS OBTAINED, SON AT BEDSIDE FOR PROCEDURE. PATIENT TOLERATED PROCEDURE WITHOUT INCIDENT.
--- NOTE | 2019-10-12 11:30 | NUR ---
ALEXYS STARK APPLIED PATIENT TEMP IS LOW DURING BLOOD TRANSFUSION AT MED RANGE.
[2019-10-12 18:22] LABS: HEMOGLOBIN 8.2 gm/dL (14.0-18.0)
--- NOTE | 2019-10-12 19:47 | NUR ---
PATIENT GIVEN PLATELETS FOLLOWED BY UNIT OF PRBC'S WITH HEMAGLOBIN 8.2 and PLATELETS 77K POST TRANSFUSION. TEMP NOTED TO BE DRIFTING DOWN COOLING BLANKET WAS TAKEN OFF AT 1630 TODAY PER PATIENT REQUEST. PATIENT NOTED TO DESAT WITH MINIMAL ACTIVITY AND O2 REMAINS AT 10L/NC HIGH FLOW O2. SON IN THIS EVENING AND UPDATED TO POC AND REASSURANCE GIVEN.
[2019-10-13] VITALS (22 sets, daily range): BP systolic 113–147; BP diastolic 54–101
--- NOTE | 2019-10-13 04:18 | NUR ---
NO OVERNIGHT EVENTS. PT. COMPLAINS OF NOT BEING ABLE TO SLEEP. ON AND OFF THE BIPAP THROUGHOUT THE NIGHT. ASSESSMENTS AND VITAL SIGNS CHARTED. 1 BM TONIGHT, DARK BROWN WITH SOME BLOOD NOTED. CONTINUE TO FOLLOW POC. WILL CONTINUE TO MONITOR.
[2019-10-13 05:48] LABS: HEMATOCRIT 22.6 % (42.0-52.0); HEMOGLOBIN 7.6 gm/dL (14.0-18.0); MCH 30.1 pg (26.0-34.0); MCHC 33.8 g/dL (28.0-37.0); RBC 2.54 mil/uL (4.50-6.00); RDW 18.8 % (10.5-14.5); WBC 2.4 thou/uL (4.0-11.0)
[2019-10-13 06:01] LABS: CALCIUM 8.4 mg/dL (8.5-10.1); CREATININE 2.4 mg/dL (0.7-1.3); POTASSIUM 3.7 mmol/L (3.5-5.1)
--- NOTE | 2019-10-13 19:00 | NUR ---
BLOOD CULTURES FOR FUNGAL INFECTION OBTAINED AND TAKEN TO LAB. PATIENT UP IN THE CHAIR FOR 3 HOURS TO DAY AND ASSISTED BACK TO BED WITH 2 NURSES AND WALKER. ALEXYS BLANKET ON TO KEEP TEMP GREATER THAN 93. FAMILY AT BEDSIDE AND UPDATED TO THE POC AND QUESTIONS ANSWERED.
[2019-10-14] VITALS (24 sets, daily range): BP systolic 110–151; BP diastolic 62–87
[2019-10-14 05:22] LABS: HEMOGLOBIN 7.4 gm/dL (14.0-18.0); MCHC 33.4 g/dL (28.0-37.0); WBC 2.3 thou/uL (4.0-11.0)
[2019-10-14 05:25] LABS: MCH 30.1 pg (26.0-34.0); MCV 90.1 fL (80.0-100.0); RBC 2.44 mil/uL (4.50-6.00); RDW 18.7 % (10.5-14.5)
[2019-10-14 05:26] LABS: CREATININE 2.3 mg/dL (0.7-1.3); POTASSIUM 3.7 mmol/L (3.5-5.1)
[2019-10-14 05:49] LABS: BE(vivo) -4.4 mmol/L (-2 to +3); HCO3 18.6 mmol/L (22.0-26.0); PCO2 26.8 mmHg (35.0-45.0); PO2 70.3 mmHg (80.0-100.0); sO2 95.3 % (92.0-98.0)
--- NOTE | 2019-10-14 06:00 | NUR ---
ASSUMED CARE OF PT AT 1900 YESTERDAY. PT ON 10L O2 PER HIGH FLOW NC AT THE TIME. PT'S OXYGENATION WAS SUFFICIENT, BUT BREATHING APPEARED LABORED. PT SEEMED TO BE MORE FORGETFUL THAN IN THE PAST. PT ENCOURAGED TO WEAR THE BIPAP OVERNIGHT. PT WOULD WEAR BIPAP FOR A SHORT PERIOD OF TIME, THEN PULL OFF THE MASK AND ASK TO PUT NC BACK ON. PT SWITCHED FROM NC TO BIPAP FREQUENTLY OVERNIGHT. ABG OBTAINED THIS MORNING D/T INCREASED LABOR OF BREATHING AND OXYGEN DEMAND. ABGs HAD IMPROVED; NO CRITICALS. PT'S TEMP CONTINUED TO BE LOW. ALEXYS HUGGER ON THE MAJORITY OF THE NIGHT, BUT PT WOULD REQUEST TO HAVE IT OFF AT TIMES D/T BECOMING TOO WARM. WILL CONTINUE TO MONITOR.
--- NOTE | 2019-10-14 09:15 | NUR ---
0820- OFF BIPAP, PER PT REQUEST. HE EXPRESSED HE IS GETTING READY FOR BREAKFAST. NURSE EDUCATED ON IMPORTANCE OF NURSE REMOVING MASK INSTEAD OF HIM.
--- NOTE | 2019-10-14 11:57 | NUR ---
Dr. Fleming rounded on patient. Plan is to not restart heparin gtt at this time and to continue to monitor bowel movements for evidence of bleeding. 1145 Pts son updated on plan of care. Patient on bipap resting at this time.
--- NOTE | 2019-10-14 13:48 | NUR ---
Dr. Mena rounded, expressed she wanted 1 unit of Platlets transfused today. Next, Dr. Dozier rounded 1315 and expressed he would like 40mg of lasix given, after nurse updated him on assessment findings and urine output. Then Dr. Godwin rounded. Nurse updated him and he expressed he will have a [employer] rep interrogate the patients pacemaker. Report given to next RN for continuation of care. After physicians rounded, nurse went to turn patient and assessed his bottom. Nurse noted a very small diameter of stool with maroon color on the pad. This was informed to the next RN.
--- NOTE | 2019-10-14 15:28 | NUR ---
ASSUMED CARE @ 1330 10/14/19, PT ASSESSMENTS AND VSS COMPLETE PER ICU PROTOCOL. REPORT FROM ANAHI BASSETT.
--- NOTE | 2019-10-14 22:28 | NUR ---
ASSUMED CARE OF PT AT 1900. UPON INITIAL ASSESSMENT, PT'S PUPILS WERE DIFFERENT SIZES. RT PUPIL WAS 5 MM AND LT PUPIL 3 MM. BOTH REACT TO LIGHT, BUT RT PUPIL WAS INITIALLY SLUGGISH. WHEN REASSESSED AN HOUR LATER, RT PUPIL HAD A BRISK REACTION TO LIGHT, BUT PUPIL'S SIZE REMAINED 5 MM. NOTIFIED Mary Jo CHAUHAN NP OF THIS NEW FINDING. WILL CONTINUE TO MONITOR.
[2019-10-15] VITALS (67 sets, daily range): BP systolic 94–130; BP diastolic 54–81
[2019-10-15 04:42] LABS: CALCIUM 8.1 mg/dL (8.5-10.1); CREATININE 2.2 mg/dL (0.7-1.3); POTASSIUM 3.4 mmol/L (3.5-5.1)
[2019-10-15 04:50] LABS: RBC 2.12 mil/uL (4.50-6.00)
[2019-10-15 04:54] LABS: MCH 30.1 pg (26.0-34.0); MCHC 32.9 g/dL (28.0-37.0); MCV 91.5 fL (80.0-100.0); RDW 18.6 % (10.5-14.5)
[2019-10-15 04:59] LABS: HEMATOCRIT 19.4 % (42.0-52.0); HEMOGLOBIN 6.4 gm/dL (14.0-18.0)
--- NOTE | 2019-10-15 06:45 | NUR ---
PT REMAINED ON BIPAP THROUGHOUT THE NIGHT. PT WOULD PULL THE MASK OFF AT TIMES D/T CONFUSION. O2 SAT WOULD DROP QUICKLY AND PT WAS SOA; BIPAP REAPPLIED. PT WAS RESTLESS THROUGHOUT THE NIGHT. PT WAS GIVEN MELATONIN WITH NIGHTTIME MEDS, BUT IT DID NOT HELP THE PT GET TO SLEEP. OBTAINED ORDER FOR XANAX THIS MORNING AFTER PT WAS PULLING OFF MASK MORE FREQUENTLY AND WAS VERY RESTLESS. AFTER GIVEN XANAX, PT WAS ABLE TO SLEEP FOR 1.5 HOURS. PT'S HGB CRITICALLY LOW THIS MORNING. ORDER OBTAINED TO TRANSFUSE 1 UNIT PRBCs. POTASSIUM LOW THIS MORNING, REPLACED PER PROTOCOL. PT APPEARS TO BE BREATHING EASIER ON THE CANNULA THIS MORNING, BUT BREATHING IS STILL SOMEWHAT LABORED. WILL CONTINUE TO MONITOR.
[2019-10-15 08:22] LABS: APTT 28.6 Seconds (24.5-32.8); INR 1.4
[2019-10-15 11:38] LABS: HEMOGLOBIN 7.8 gm/dL (14.0-18.0)
[2019-10-15 11:40] LABS: HEMATOCRIT 23.5 % (42.0-52.0); MCH 30.1 pg (26.0-34.0); MCHC 33.2 g/dL (28.0-37.0); MCV 90.6 fL (80.0-100.0); RBC 2.6 mil/uL (4.50-6.00); RDW 18.6 % (10.5-14.5)
[2019-10-15 11:43] LABS: WBC 1.8 thou/uL (4.0-11.0)
--- NOTE | 2019-10-15 12:14 | NUR ---
PATIENT RETURNED FROM BONE MARROW BIOPSY AT 1120. PATIENT HAVING SLURRED SPEECH. POSSIBLE SEDATION? DURING ASSESSMENT, R PUPIL [address] BOCANEGRA PAGED, NO ORDERS RECIEVED. RN INSTRUCTED TO MONITOR IT AND WAIT UNTIL SEDATION WEARS OFF.
--- NOTE | 2019-10-15 13:00 | NUR ---
DR. ISAACS RN PAGED ABOUT CRITICALLY LOW WBC COUNT OF 1.8. PATIENT IN REVERSE ISOLATION.
--- NOTE | 2019-10-15 13:28 | NUR ---
PATIENT IN CHAIR WITH 2 ASSIST AND GAIT BELT. PATIENT WORKING WITH SPEECH THERAPY
--- NOTE | 2019-10-15 14:25 | NUR ---
FOLLOWING FOR DC PLANNING. REMAINS IN ICU, ON 10 LITERS 02 NC OR BIPAP, PANCYTOPENIC AND HEME FOLLOWING. RECEIVING PRBC TODAY. PT HAD COLON MASS THAT WAS TATOOED AND HAS PLANS FOR COLON RESECTION 10/30/[address] BERUMEN. DC PLAN TO NOW HAS BEEN 5N VS SKILLED REHAB AND REFERRAL TO [facility] A WEEK AGO AND HAVE BEEN UPDATING ADMISSION DEPT. UPDATE TO JANELLE AT [facility] TODAY.
--- NOTE | 2019-10-15 18:39 | NUR ---
ASSESSMENTS AND INTERVENTIONS DOCCUMENTED. PATIENT PLACED ON REVERSE ISOLATION DUE TO LOW WBC COUNT. PATIENT WENT TO BONE MARROW TRANSPLANT AND TOLERATED IT WELL. PATIENT RETURNED FROM PROCEDURE WITH A CHANGE OF STATUS. PATIENT'S RIGHT PUPIL [address] BOCANEGRA AWARE, NO NEW ORDERS. PATIENT SLEPT AND ORDERS FOR CT OF THE HEAD RECEIVED FROM TOMAS MARTINEZ. CT COMPLETE, WAITING ON RESULTS. FAMILY UPDATED AND WAS AT BEDSIDE THROUGH OUT THE SHIFT. THE PLAN OF CARE IS TO CONTINUE TO TREAT INFECTION, MONITOR RESPIRATORY STATUS.
--- NOTE | 2019-10-15 19:06 | NUR ---
PATIENT HAVING BLOODY STOOL THIS SHIFT. GI AWARE.
[2019-10-16] VITALS (68 sets, daily range): BP systolic 103–134; BP diastolic 51–91
[2019-10-16 06:51] LABS: HEMOGLOBIN 7.5 gm/dL (14.0-18.0)
[2019-10-16 06:52] LABS: HEMATOCRIT 22.8 % (42.0-52.0); MCHC 32.6 g/dL (28.0-37.0); MCV 91.9 fL (80.0-100.0); RBC 2.48 mil/uL (4.50-6.00); RDW 19.4 % (10.5-14.5)
[2019-10-16 07:04] LABS: CALCIUM 8.1 mg/dL (8.5-10.1); CREATININE 2.2 mg/dL (0.7-1.3); POTASSIUM 3.9 mmol/L (3.5-5.1)
[2019-10-16 07:11] LABS: WBC 1.6 thou/uL (4.0-11.0)
--- NOTE | 2019-10-16 08:12 | NUR ---
PT DROWSY AND AWAKE UPON WAKENING. PT MOSTLY ON HIGHFLOW NC LAST NIGHT AND SWITCHED TO BIPAP EARLY AM. LOW APPETITE. TB SKIN TEST PERFOMED ON RIGHT HAND AND MARKED WITH A SHARPIE WITH TODAY'S DATE. EVALUATION OF THE AREA MUST BE DONE WITHIN 48 HOURS. PT HAD ONE SMALL MARROON COLORED BM. PT SLOWLY PROGRESSING TOWARDS GOALS. CHART CHECK. REPORT GIVEN TO DANYELLE NICOLAS.
--- NOTE | 2019-10-16 18:16 | NUR ---
ASSESSMENTS AND INTERVENTIONS DOCCUMENTED. PATIENT SHOWING LITTLE IMPROVEMENT FROM DAY SHIFT YESTERDAY. PATIENT HAVING 1 LARGE MAROON STOOL. PATIENT WORKED WITH PT AND SAT IN THE CHAIR. PATIENT WEAK BUT ABLE TO TAKE STEPS WITH MODERATE ASSIST. PATIENT REMAINED IN CHAIR THROUGH OUT SHIFT. PATIENT HAVING LOW WBC COUNT TODAY, ONC/HEM AWARE. NEURO CONSULTED RELATED TO UNEQUAL PUPILS AND THE RIGHT PUPIL BEING NON REACTIVE. NEURO STATED AN OPTAMOLOGY CONSULT MAY BE APPROPRIATE. TEMPRETURE STABLE, THEN DROPPING TO 94. BEAR HUGGER PLACED ON PATIENT. FAMILY UPDATED. THE POC IS TO WAIT FOR BONE MARROW BIOPSY.
[2019-10-17] VITALS (76 sets, daily range): BP systolic 111–144; BP diastolic 48–76
[2019-10-17 06:47] LABS: HEMOGLOBIN 7.3 gm/dL (14.0-18.0)
[2019-10-17 06:50] LABS: HEMATOCRIT 22.1 % (42.0-52.0); MCH 30.3 pg (26.0-34.0); MCHC 33.1 g/dL (28.0-37.0); MCV 91.6 fL (80.0-100.0); PLATELET COUNT 30 thou/uL (150-400); RBC 2.42 mil/uL (4.50-6.00); RDW 18.7 % (10.5-14.5)
[2019-10-17 06:52] LABS: WBC 1.6 thou/uL (4.0-11.0)
[2019-10-17 06:59] LABS: ALBUMIN 1.7 g/dL (3.4-5.0); CALCIUM 8.1 mg/dL (8.5-10.1); CREATININE 2.2 mg/dL (0.7-1.3); POTASSIUM 3.8 mmol/L (3.5-5.1); TOTAL BILIRUBIN 0.7 mg/dL (<0.1-1.0); TOTAL PROTEIN 5.2 g/dL (6.4-8.2)
[2019-10-17 07:54] LABS: ABSOLUTE NEUTROPHILS 1.5 thou/uL (1.4-8.2); ANISOCYTOSIS 1+; HYPOCHROMASIA 2+; NUCLEATED RBCS 3 /100WBC; PLATELET ESTIMATE MARKEDLY DECREASED
--- NOTE | 2019-10-17 17:27 | NUR ---
ASSESSMENTS AND INTERVENTIONS DOCCUMENTED. PATIENT STATING "I FEEL LIKE A VEGETABLE, I WANT MORPHINE TO HELP ME STOP BREATHING FOR GOOD". RN ASKING PATIENT WHY HE FEELS THIS WAY. PATIENT DOESNT FEEL LIKE HE IS IMPROVING. RN EXPLAINED TO PATIENT THE IMPROVEMENT IN HIS RESPIRATORY STATUS AND MENTATION. PATIENT SITTING IN THE CHAIR WATCHING TV THROUGH OUT THE SHIFT. DR. RAMOS CAME BY TO VISIT THE PATIENT AND EXPLAINED THAT SURGERY WOULD NOT BE THE BEST ROUTE FOR THE PATIENT DUE TO HIS HEMATOLOGY NUMBERS. PATIENT ASKING DR. RAMOS TO COMMUNICATE THAT WITH HIS SON AND EXPRESSING UNDERSTANDING. DR. RAMOS MENTIONING THAT [facility] WOULD BE A BETTER PLACE FOR THE PATIENT IF EMERGENCY SURGERY WAS TO HAPPEN. THE PLAN OF CARE IS POSSIBLE TRANSFER TO STEP DOWN UNIT, AND WAIT FOR RESULTS OF BONE MARROW BIOPSY.
[2019-10-18] VITALS (38 sets, daily range): BP systolic 98–140; BP diastolic 44–75
--- NOTE | 2019-10-18 07:37 | NUR ---
PATIENT ALERT AND ORIENTED X4, NO COMPLAINTS OF PAIN. ON 2L NASAL CANNULA, SHORTNESS OF BREATH WITH INCREASED ACTIVITY. PATIENT TRANSFERRED FROM BED TO COMMODE WITH X2 AND STANDBY ASSISTANCE. CURRENTLY IN CHAIR. NO SIGNS OF ACUTE DISTRESS NOTED AT THIS TIME. WILL CONTINUE TO MONITOR.
[2019-10-18 08:15] LABS: MCH 30.2 pg (26.0-34.0); MCHC 33.1 g/dL (28.0-37.0); MCV 91.1 fL (80.0-100.0); RBC 2.11 mil/uL (4.50-6.00); RDW 19.1 % (10.5-14.5)
[2019-10-18 08:31] LABS: HEMATOCRIT 19.2 % (42.0-52.0); HEMOGLOBIN 6.4 gm/dL (14.0-18.0); WBC 1.9 thou/uL (4.0-11.0)
[2019-10-18 08:32] LABS: PLATELET COUNT 24 thou/uL (150-400)
--- NOTE | 2019-10-18 13:07 | PATH ---
[facility] [address] [place] [address] PATHOLOGY RPT PROCEDURE Name: RYAN SADLER Room #: 244-P ADM IN M.R.#: [id number] Admission: 10/01/19 Date of : 36 Discharge: Report #: [id number] Path Case #: [id number] Note [facility] Accession Number: [id number] TESTS RESULT FLAG UNITS REF RANGE LAB Clinician Provided Cytology Information No. of containers..01 Other (Miscellaneous) Source: BAL RUL DIAGNOSIS: 02 BAL RUL INCONCLUSIVE. RARE ATYPICAL CELLS PRESENT. PULMONARY MACROPHAGES (DUST CELLS) ARE PRESENT. Signed out by: 02 Mati Nunes MD, Pathologist NPI- [id number] Performed by: 01 Babar Maxwell, Suction Plate Carrier Cleaner ([facility]) Gross description: 01 5ML, THICK LIGHT WHELAN, 1 TP /LCS 10/15/2019 1621 Local FLAG LEGEND: L-Low Normal,H-High Normal,LL-Alert Low,HH-Alert High <-Panic Low,>-Panic High,A-Abnormal,AA-Critical Abnormal Performed at: [address] [place] [address] Ammon Torres MD, [address] [address] Angelic Martinez MD, Specimen Comment: A courtesy copy of this report has been sent to [phone] Specimen Comment: [phone], Specimen Comment: Report sent to ,DR RAMOS / DR BOCANEGRA Specimen Comment: A duplicate report has been generated due to demographic updates. Performed at: [address], [place], [place] [id number] MD Ammon Torres MD Phone: [phone]
[2019-10-18 13:11] LABS: ABSOLUTE NEUTROPHILS 1.4 thou/uL (1.4-8.2); ANISOCYTOSIS 1+
[2019-10-18 17:09] LABS: HEMATOCRIT 22.1 % (42.0-52.0); HEMOGLOBIN 7.3 gm/dL (14.0-18.0)
--- NOTE | 2019-10-18 17:10 | NUR ---
PT IS ALERT AND ORIENTED X4. FAMILY AT BEDSIDE FOR SUPPORT. PT HAS DISCUSSED HIS DIAGNOSIS OF COLON CANCER AND THEY DISCUSSED HIS WISHES. AWAITING FOR THE BONE BIOPSY TO COME BACK. 1 UNIT OF BLOOD GIVEN TODAY FOR PT HGB. AND A REDRAW THIS EVENING DONE. DENIES ANY PAIN ISSUES. VOIDS PER URINAL. AND UP TO COMODE THIS AM WITH LOOSE DARK STOOLS. IN ISOLATION FOR C-DIFF. VERY WEAK SO PLACED BACK TO BED AND PT RESTING NOW. WILL CONTINUE ONGOING NURSING CARE FOR PT.
--- NOTE | 2019-10-18 23:00 | NUR ---
ASSUMED CARE OF PT AT 1900. PT A&O, NO CONFUSION OR FORGETFULNESS NOTED. PT TX'd TO RM 359 AT 2245. REPORT GIVEN TO MICHELL AT 2200.
[2019-10-19 03:45] VITALS: BP 99/56
--- NOTE | 2019-10-19 04:44 | NUR ---
PT TRANSFRED FROM ICU THIS SHIFT @2330. A&OX4 DENIES PAIN, PT ASSESSED AND ORIENTED TO ROOM. ON 2L OF NC. URINAL BY BEDSIDE AND ALEXYS HUGGER ON PT DUE TO HYPOTHERMIA. SCD'S INATCT, A PACED ON THE MONITOR, LFT HAND ELEVATED ON EXT DUE TO EDEMA. ISOLATION MAINTAINED FOR POSITIVE C-DIFF NO BM DURING MY SHIFT. URINAL AT BEDSIDE WILL CONT WITH NPOC TILL EOS.
[2019-10-19 06:16] LABS: HEMOGLOBIN 6.5 gm/dL (14.0-18.0); MCV 92.8 fL (80.0-100.0)
[2019-10-19 06:17] LABS: MCH 30.3 pg (26.0-34.0); MCHC 32.7 g/dL (28.0-37.0); RBC 2.15 mil/uL (4.50-6.00); RDW 17.5 % (10.5-14.5)
[2019-10-19 06:29] LABS: HEMATOCRIT 19.9 % (42.0-52.0); PLATELET COUNT 17 thou/uL (150-400); WBC 1.8 thou/uL (4.0-11.0)
[2019-10-19 07:21] VITALS: BP 110/57
--- NOTE | 2019-10-19 09:28 | NUR ---
Nutrition update: RDs had been following the past few weeks for recent severe weight loss and oral intake assistance. Remains on a soft/fiber restricted diet. Visited briefly w/ pt this AM. He reports plans for Hospice and wanting to go home. Per EMR review, provider notes indicate pt is now comfort measures with Hospice evaluation planned. 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 Pt only wanted juice this AM off breakfast tray. Declines any further nutrition or food needs. Given choice of comfort cares/Hospice, no further nutrition interventions indicated at this time.
[2019-10-19 11:08] VITALS: BP 96/50
[2019-10-19 13:18] LABS: ABSOLUTE NEUTROPHILS 1.4 thou/uL (1.4-8.2); ANISOCYTOSIS 1+; NUCLEATED RBCS 2 /100WBC
[2019-10-19 15:03] VITALS: BP 106/53
--- NOTE | 2019-10-19 15:20 | NUR ---
Received hospice referral. MOIRA reviewed chart and spoke with nursing and attending physician. Pt was transferred to from ICU. Pt has chosen to stop aggressive treatment and initiate hospice services. MOIRA met with pt at bedside to discuss hospice. Pt is a DNR. Pt verbalized understanding of focusing on comfort. Pt is hoping to be able to go home with hospice. MOIRA also discussed the [facility] for future needs. Pt agreeable with referral to Hospice and asks for his son to be contacted. MOIRA faxed clinical info to Hospice and notified marketing community liaison. Liaison to be at [facility] around [phone] today. MOIRA spoke with pt's son, Ok, to provide update. Ok will be at [facility] at time of hospice eval/visit. MOIRA updated pt's nurse and attending physician. If pt goes home with hospice, DME will need to be ordered and delivered prior to pt's discharge. MOIRA is following to assist as needed with discharge planning.
[2019-10-19 19:30] VITALS: BP 104/53
--- NOTE | 2019-10-19 19:37 | NUR ---
PT is A&OX3, BUT pt is forgetful , pt is very weaknes, DRs have talking to the pt and his son about pt's situation, abnormal LAB results, hgb 6.5 today, no order to transfusion, pt's plan is going to hospice house soon , pt is continuing o2 2L/MIN/NC, pt denies sob and pain at this time.
--- NOTE | 2019-10-19 21:35 | NUR ---
PT RESTING IN BED AND VISITING UPON ARRIVAL TO SHIFT. PT REMAINS IN CDIFF ISOLATION, CHANGED TO MS STATUS. FSBS DCD. KARSTEN EDEMA +3, BILAT FEET +2, BS HYPOACTIVE. 02 PER NC. PT DECLINED REPOSITIONING Q 2 HOURS AND STATED HE WILL CALL OUT FOR REPOSITIONING. PT VERBALIZED UNDERSTANDING OF TRANSFER TO MS FLOOR.
--- NOTE | 2019-10-19 22:24 | NUR ---
PER PT REQUEST WEI SARGENT NOTIFIED OF ROOM CHANGE TO 444.
[2019-10-19 22:50] VITALS: BP 108/52
--- NOTE | 2019-10-20 02:46 | NUR ---
NOC: RECIEVIED REPORT FROM 3WEST NURSE PT TRANSFRED TO THE UNIT @2789 VIA BED. ON ASSESSMENT PT A&OX4 DENIES PAIN. URINAL AT BEDSIDE AND CALLS TO USE THE BEDPAN. 1BM THIS SHIFT DARK REDISH IN COLOR. IJ INTACT IN RT SIDE AND SALINE LOCK. PT TURNED FREQ. FALL PREC IN PLACE AND CALL LIGHT IN REACH WILL CONT WITH POC TILL EOS
[2019-10-20 04:39] LABS: MCHC 32.3 g/dL (28.0-37.0); RBC 2.01 mil/uL (4.50-6.00)
[2019-10-20 04:41] LABS: MCH 30.6 pg (26.0-34.0); MCV 94.6 fL (80.0-100.0); RDW 18.7 % (10.5-14.5)
[2019-10-20 06:14] LABS: ABSOLUTE NEUTROPHILS 1.7 thou/uL (1.4-8.2); NUCLEATED RBCS 1 /100WBC
[2019-10-20 06:15] LABS: ANISOCYTOSIS 1+; LARGE PLATELETS FEW; PLATELET ESTIMATE MARKEDLY DECREASED
[2019-10-20 06:23] LABS: HEMOGLOBIN 6.1 gm/dL (14.0-18.0); WBC 1.9 thou/uL (4.0-11.0)
[2019-10-20 06:24] LABS: PLATELET COUNT 18 thou/uL (150-400)
[2019-10-20 08:05] VITALS: BP 108/57
--- NOTE | 2019-10-20 09:24 | NUR ---
SPOKE WITH ASH TAYLOR FROM HOSPICE AT 0920. STATES THEY WILL HAVE A BED AVAILABLE THIS AFTERNOON FOR THIS PT. CONTACT PHONE #: [phone]
[2019-10-20] MEDS ORDERED: LOPRESSOR25 PO (11:07)
[2019-10-20] MEDS ORDERED: MORPHINE S10 MG/5 M2 PO (11:07)
[2019-10-20] MEDS ORDERED: MELATONIN5 M1 PO (11:07)
--- NOTE | 2019-10-20 11:37 | HC ---
[facility] [place] [address] CONSULTATION Name: RYAN SADLER Room #: 444- ADM IN M.R.#: [id number] Admission: 10/01/19 Attend Phys: Paulo Pérez MD Discharge: Date of : 36 Report #: [id number] THIS REPORT FOR: //name// CC: Paulo Bellamy CHIEF COMPLAINT: Shortness of breath. No nausea, vomiting. Nurse reports tachypnea. The patient had maroon stools yesterday. States that he has not had any bleeding. He is still on and off heparin. PHYSICAL EXAMINATION: VITAL SIGNS: Blood pressure 135/67, heart rate is 62, respirations 24. NECK: Supple. HEART: Tachycardia. ABDOMEN: Soft. No organomegaly. LUNGS: Coarse. MENTAL STATUS: Alert and oriented x 3. LABORATORY DATA: White count 2.3, hemoglobin 7.4, platelets 34. IMAGING STUDIES: Chest x-ray, stable diffuse bilateral pulmonary opacities. ASSESSMENT AND PLAN: 1. Metastatic colorectal cancer, not on chemotherapy. 2. Thrombocytopenia. The patient is at risk of recurrent GI bleeding. Transfuse 1 unit of single donor platelets. 3. Anemia. Continue to monitor. 4. Pneumonia. Agree with management per Dr. Dozier. <ELECTRONICALLY SIGNED> By: Patricia Shelton MD 10/20/19 1137 1321 1329 Belle Mena MD /nt
[2019-10-20 13:37] VITALS: BP 108/57
--- NOTE | 2019-10-20 13:41 | NUR ---
PT IN BED WATCHING TV. ALERT XS 4. HAS EDEMA TO WILBERTO UPPER EXTREMITES. PROPPED UP ON PILLOWS. LUNGS CTA BS'S XS 4. PT USES BEDPAN OR URINAL IS CONT. PT TO DISCHARGE AT 1600 FIRE DEPT TO TRANSPORT NON EMERGENT. SON WAS AT THIS FACILITY BUT WENT HOME TO MOVE PATIENTS BEDROOM. HOSPICE TO HAVE BED AND O2 SUPPLIES DELIEVERED THIS AFTERNOON TO PATIENTS HOUSE. SON TO COME BACK TO FACILITY AND WILL FOLLOW AMBULANCE TO PATIENTS HOUSE HOSPICE TO SIGN ON PATIENT 10/21/19 AT HIS HOUSE. PT IS PLEASANT AND COOPERATIVE WITH CARE. .
[2019-10-20 17:06] LABS: HISTOPLASMA MYCELIAL-ID Negative (Negative)
--- NOTE | 2019-10-20 17:06 | NUR ---
DISCHARGE PAPERS GONE OVER WITH PATIENT SIGNED AND COPY IN CHART.MORPHINE GIVEN THROUGH RIGHT NECK IJ IV SITE. [facility] DEPARTMENT HERE TO TRANSPORT PATIENT HOME. RIGHT IJ NOT TO BE DCD. DR BOCANEGRA AWARE. HOSPICE REQUEST. ALL BELONGINGS PACKED AND SON TOOK TO PATIENTS HOME.
[2019-10-20 17:27] VITALS: BP 121/70
[2019-10-20 18:07] LABS: HISTOPLASMA MYCELIAL-CF Negative (Neg:<1:2)
[2019-10-21 22:09] LABS: ADENOVIRUS Negative (Negative); INFLUENZA A Negative (Negative); INFLUENZA B Negative (Negative); METAPNEUMOVIRUS Negative (Negative); PARAINFLUENZA 1 Negative (Negative); PARAINFLUENZA 2 Negative (Negative); PARAINFLUENZA 3 Negative (Negative); RHINOVIRUS Negative (Negative); RSV A Negative (Negative); RSV B Negative (Negative)
--- NOTE | 2019-10-23 09:28 | HC ---
[facility] [place] [address] [place] [address] CONSULTATION Name: RYAN SADLER Room #: 444-[facility] IN M.R.#: [id number] Admission: 10/01/19 Attend Phys: Paulo Pérez MD Discharge: 10/20/19 Date of : 36 Report #: [id number] THIS REPORT FOR: //name// CC: Paulo Bellamy DATE OF SERVICE: 10/16/2019 HISTORY OF PRESENT ILLNESS: This is an 79-year-old male patient who was evaluated by me because the nurses noticed asymmetrical pupil at one time. It has resolved and the patient's pupil was symmetrical when I saw the patient. As an evaluation, he had a CT scan of the head done and that does not show any acute abnormality. He is not having any visual symptoms. REVIEW OF SYSTEMS: Indicate that he is being managed with low platelet. He also has a very low white count. He has pulmonary infiltrate. He has a history of colorectal cancer. He has exercise intolerance. Records indicate that he also has a history of tachycardia at one time, hyponatremia, colon cancer, anemia, kidney problem. This was his relevant 14-point review of system, which was carried out. PAST MEDICAL HISTORY: Positive for colon cancer. FAMILY HISTORY: Unremarkable. SOCIAL HISTORY: Indicates he does not have history of smoking. PHYSICAL EXAMINATION: Indicates he is alert, responsive, and oriented. His speech looks intact. His memory and fund of knowledge is at baseline. Cranial nerve examination 2-12 looks unremarkable. He does not appear to have any pupillary asymmetry now. He moves all 4 extremities. His position sense is intact. His tone is symmetrical. There is no meningeal sign. He is reasonably well-developed individual, who does not have any dysmorphic features of eyes, ears and face. His hearing and vision are adequate. He does not have any thyroid mass. His blood pressure is 123/63, respiration is 22, pulse is 60. Pulses are somewhat difficult to feel. LABORATORY DATA: His white count is 1.6 and platelet count is 33. IMAGING STUDIES: Head CT, which does not show any acute abnormality. IMPRESSION: Nurses had noticed some difficulty with pulse in this patient, but I do not find any pupillary abnormality. That will tend to indicate that the problem may be focal in the eye including something like Adie's pupil. I will suggest Ophthalmology consult and watching this patient from neurological perspective, and if more neurological symptoms occur, then please call for the [facility] [address] [place] [address] CONSULTATION Name: RYAN SADLER Room #: 444-P DIS IN M.R.#: [id number] Admission: 10/01/19 Attend Phys: Paulo Pérez MD Discharge: 10/20/19 Date of : 36 Report #: [id number] reevaluation. Thank you very much for this referral. <ELECTRONICALLY SIGNED> By: Jamison Uribe MD 10/23/19 0928 1522 0130 Jamison Uribe MD /paola
--- NOTE | 2019-10-24 16:07 | PATH ---
[facility] [place] [address] PATHOLOGY RPT PROCEDURE Name: RYAN WISE Room #: 444-P DIS IN M.R.#: [id number] Admission: 10/01/19 Date of : 36 Discharge: 10/20/19 Report #: [id number] Path Case #: [id number] [facility] Accession Number: [id number] . 01 Material submitted: . PART A: bone - BONE MARROW BIOPSY PART B: bone - BONE MARROW CLOT PART C: bone - BONE MARROW ASPIRATE SLIDES PART D: bone - PERIPHERAL BLOOD SMEARS PART E: bone - BONE MARROW FLOW . 01 Clinical history: . Pancytopenia 79 year old man with pancytopenia. . 02 Diagnosis: Bone marrow aspirate, biopsy, cell clot and peripheral blood: - Peripheral blood with pancytopenia including severe normocytic anemia, mild to moderate leukopenia and moderate thrombocytopenia. - Hypercellular bone marrow with trilineage hematopoiesis, mild dyspoiesis, increased monocytic cells, left shifted maturation and increased immature forms. (See comment) - Increased ring sideroblasts (17% of erythroid progenitors). . . Special studies report received from [facility], [address] [place] [address], [address], [place], [address], on case [id number], labeled with their number [id number], dated 10/19/2019. . Flow Cytometry: Hematologic Neoplasia Assessment . Clinical History Pancytopenia, weakness, possible pneumonia . Indication for Study Evaluation for hematolymphoid neoplasia . Specimen Bone Marrow Aspirate . Viability 65% (7AAD exclusion) . Interpretation Bone Marrow Aspirate: - Predominance of myeloid elements with left shifted maturation with no increase in blasts (see comment). . [address] [address] [place] [address] PATHOLOGY RPT PROCEDURE Name: RYAN WISE Room #: 444-[facility] IN M.R.#: [id number] Admission: 10/01/19 Date of : 36 Discharge: 10/20/19 Report #: [id number] Path Case #: [id number] Comments Patient's reported history of possible pneumonia is noted. These results are compatible with a severe reactive process such as infection. Myeloproliferative and myelodysplastic disorders cannot be categorically excluded by flow cytometric analysis. Correlation with available clinical, laboratory, and morphologic data is recommended. Chromosome analysis, FISH testing, and/or molecular studies may be contributory and they are available upon request. . Populations Analyzed Myeloid Blasts: 0.3% No significant immunophenotypic abnormalities Lymphocytes: 1% B-cells: 0.3%, polytypic/polyclonal sIg light chain pattern T-cells: no significant abnormalities of the markers tested CD4+ T-cells: 2.9% (including 0.0% CD57+ cells) CD8+ T-cells: 0.2% (including 0.1% CD57+ cells) CD4:CD8: 18.4 NK cells: 0.1% Neutrophilic Cells: 97% Decreased CD11b; partial CD56 (more prominent on immature forms; (approximately 5% of neutrophilic cells positive) Monocytic Cells: 0.6% No significant abnormalities of the markers tested OR partial CD56 (approximately 3% of monocytic cells positive) Eosinophils: 8% No relative increase Basophils: 0.03% Relatively increased Plasma Cells: 0.1% Few detected; no overt abnormalities of the surface markers tested (plasma cells are typically underrepresented by flow cytometry; cytoplasmic light chains were not assessed) Hematogones: 0.15% Normal B-cell precursors CD45 Negative 1% No significant reactivity with the markers Events/Debris: tested (may represent unlysed red blood cells, erythroid precursors, platelets, debris, etc.) (erythroid precursors may be underrepresented due to sample lysis/processing) . Morphologic Evaluation A slide was reviewed for production quality analyst purposes only. . Specimen Description Cell Yield: 38.75x10 and 6 Viability is 65%. Flow cytometric data derived from samples with <80% viability needs to be interpreted within the context of all clinical, laboratory, and morphologic data available. . Pertinent Prior Test Results [address] [address] PATHOLOGY RPT PROCEDURE Name: RYAN WISE Room #: 444-P DIS IN M.R.#: [id number] Admission: 10/01/19 Date of : 36 Discharge: 10/20/19 Report #: [id number] Path Case #: [id number] Received Date Test Type Specimen Type Result 08/29/2019 Virtual Studies - Tissue Result Number: Level 1 [id number] . Reagent(s) Used CD2, CD3, CD4, CD5, CD7, CD8, CD10, CD11b, CD11c, CD13, CD14, CD15, CD16, CD19, CD20, CD33, CD34, CD38, CD45, CD56, CD57, CD64, CD117, HLA-DR, kappa, lambda . at [facility]. Celina Hunter MD Pathologist . Intended Use Flow cytometry is optimally used to immunophenotypically characterize abnormal populations when they are detected. Negative flow cytometry results do not exclude lymphoma or neoplasia. Possible false negative flow cytometry results may occur in, but are not limited to, the following: neoplastic cells in Hodgkin lymphoma are not typically adequately represented by routine clinical flow cytometry; neoplastic cells may be lost or inadequately represented due to degeneration, sample processing, sampling artifact, or patchy involvement; plasma cells are typically underrepresented by flow cytometry; immature cells/blasts may be underrepresented due to hemodilution; myeloproliferative disorders and low grade myelodysplasia may not have immunophenotypic abnormalities or increased blasts. Correlation with all available clinical, laboratory, and morphologic data is always necessary to assess for the possibility of false negative flow cytometry results and to establish a diagnosis. Each marker in this analysis was used to assess for potential antigenic abnormalities or to evaluate detected abnormalities. . Disclaimer(s) This test was performed at [facility]. at [address] [place] [address], [phone] - [employer]orer Stores: Jason Mott MD. [employer] is a business unit of [employer] a wholly-owned subsidiary of [employer]. . Any image or images that accompany this report are site safety representative images only and should not be used to render a diagnosis. . This test was developed and its performance characteristics determined by [employer]. It has not been cleared or approved by the Food and Drug Administration (FDA). The FDA has determined that such clearance or approval is not necessary. . [address] [address] PATHOLOGY RPT PROCEDURE Name: RYAN WISE Room #: 444-P [facility] IN M.R.#: [id number] Admission: 10/01/19 Date of : 36 Discharge: 10/20/19 Report #: [id number] Path Case #: [id number] For inquiries, the physician may contact Lab: [phone] . A complete copy of the report is on file. . Professional services performed by [employer]. at [address], [place] [address]. Technical services performed by [employer]. at [address], [place] [address]. . (CLW:[facility] 10/19/2019) . . [facility] 10/19/2019 1709 Local . 02 Comment: Overall, the bone marrow is hypercellular for the patient's age with trilineage hematopoiesis, dyspoiesis, increased monocytic cells, left shifted maturation and increased immature forms. There are 17% blasts and blast equivalents (promonocytes) identified by morphology including 6% blasts. No Robert rods are seen. Additionally, there are increased ring sideroblasts identified comprising 17% of the erythroid progenitors. 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 Correlation with clinical history, additional laboratory data and cytogenetics is required. The case is co-reviewed with Dr. Safia Lombardo. The case is discussed with Dr. Jan Gilbert on 10/18/2019 at 4:30 PM. (CLW/db; 10/19/2019) . 02 Addendum: . Special studies report received from [facility], [address] [place] [address], [address], [place], [address], on case [id number], labeled with their number [id number], dated 10/23/2019. . Cytogenetic Analysis Report . RESULT: Insufficient metaphases available for chromosome analysis. Poor growth. . Specimen Type: Bone Marrow . Indication for Study: Pancytopenia . INTERPRETATION: All cultures established from this bone marrow specimen yielded poor growth. Despite the multiple culture and harvest attempts an insufficient number of metaphases were available for analysis. A repeat specimen, when [address] [address] PATHOLOGY RPT PROCEDURE Name: RYAN WISE Room #: 444-P [facility] IN M.R.#: [id number] Admission: 10/01/19 Date of : 36 Discharge: 10/20/19 Report #: [id number] Path Case #: [id number] clinically appropriate, may provide additional cytogenetic data. . See Flow Cytometry report [id number] for further information. . Number of Metaphases Counted: 1 Banding: G-banding Number of Metaphase Cells Analyzed: 1 Band Level: 350 Number of Metaphase Cells Karyotyped: 1 Cultures Established: 24/48 hour unstimulated . . at [facility]. Paige Munoz, PhD, FACMG Director of Clinical Cytogenetics . Disclaimer This Test was performed by [facility]. at [address] [place] [address]. [facility] is a business unit of [employer] a wholly-owned subsidiary of [employer]. . . Any image(s) that accompany this report is/are a site safety representative image(s) only and should not be used to render a diagnosis. . Based on the resolution of this study, standard cytogenetic methodology does not routinely detect subtle or sub-microscopic rearrangements or low level mosaicism. . A complete copy of the report is on file. . Professional services performed by [employer]. at [address] [place] [address]. Technical services performed by [employer]. at [address] [place] [address]. . (CLW:[facility] 10/24/2019) . . [place]/10/24/2019 Addendum Electronically Signed by Yessica Bahena MD, Pathologist . 02 Electronically signed: . Yessica Bahena MD, Pathologist NPI- [id number] . 01 Gross description: . [address] [address] PATHOLOGY RPT PROCEDURE Name: RYAN WISE Room #: 444-P [facility] IN M.R.#: [id number] Admission: 10/01/19 Date of : 36 Discharge: 10/20/19 Report #: [id number] Path Case #: [id number] A. Received in formalin labeled "Ryan Wise, BM biopsy," are 2 needle cores of martinez bone measuring 0.8 and 1.0 cm in length and measuring 0.2 cm each in diameter. The specimen is submitted entirely in cassette A1, following decalcification. . B. Received in formalin labeled "Ryan Wise, BM aspirate," is an aggregate of dark martinez blood clot measuring 3.5 x 1.9 x 0.2 cm. The specimen is filtered and entirely submitted in cassette B1. (TSD; 10/15/2019) TOB/TOB 10/15/[address] [place] [address] . 02 Microscopic: . CBC Data (10/15/19): WBC 1,800 /uL, RBC 2.60, hemoglobin 7.8 g/dL, hematocrit 23.5%, MCV 90.6 fL, MCH 30.1 pg, MCHC 33.2 g/dL, RDW 18.6%, and platelet count 54,000 /uL. White blood cell differential (10/07/19): segs 44%, bands 7%, lymphs 31%, monos 10%, eos 1%, basos 1%, metas 1%, atypical lymphs 5% and 5 NRBCs per 100 WBCs. . Peripheral Blood Smear: Cytomorphological examination of the De Guzman's stained peripheral blood smear confirms the provided data. Red blood cells show severe normocytic anemia with mild anisocytosis. No significant poikilocytosis is identified. Rare target cells are noted. White blood cells are mildly decreased in number. They are predominantly segmented neutrophils with occasional nuclear abnormalities. Lymphocytes are predominantly small, round, and mature appearing with condensed chromatin and scant cytoplasm with admixed large granular lymphocytes. Monocytes are mature. Platelets are moderately decreased in number and mainly normal in morphology with rare larger platelets noted. . Aspirate Smears: Cytomorphological examination of the De Guzman's stained aspirate smears show hypercellular spicules present. The overall cellularity is approximately 70-80%. The myeloid to erythroid ratio is 3:1. Myeloid maturation is abnormal with left shifted maturation / increased immature cells and an increase in monocytic cells. Erythroid maturation is mildly dyserythropoietic with irregular nuclear contours, nuclear cytoplasmic dyssynchrony and rare binucleate forms / mitotic figures. In a 500 cell differential, there are 17% blasts and blast equivalents (promonocytes) including 6% blasts (no Robert rods are seen), 58% more differentiated myelomonocytic cells, 14% erythroid progenitors, and 11% lymphocytes. Megakaryocytes are proportional in number and both normal and abnormal in morphology with variable sizes and nuclear abnormalities. No lymphoid aggregates or markedly atypical lymphoid cells are seen. Plasma cells are without atypia. Iron stain of the aspirate smear shows 3-4/4+ iron positivity with spicules present. Ringed sideroblasts are present and are mildly increased comprising approximately 17% of erythroid progenitors. . [address] [address] PATHOLOGY RPT PROCEDURE Name: RYAN WISE Room #: 444-P DIS IN M.R.#: [id number] Admission: 10/01/19 Date of : 36 Discharge: 10/20/19 Report #: [id number] Path Case #: [id number] Core Biopsy and Cell Clot: The decalcified bone marrow core biopsy is adequate. The bone marrow is hypercellular with an overall cellularity of approximately 80%. The myeloid to erythroid ratio is mildly increased. Myeloid and erythroid maturation are mildly dyspoietic. Megakaryocytes are normal in number and both normal and abnormal in morphology. There is an increase in monocytic cells. No lymphoid aggregates or markedly atypical lymphoid cells are seen. Bony trabeculae and blood vessels are unremarkable. The cell clot has spicules present that are similar in cellularity and differential morphology as previously described. . Properly controlled special stains are performed. . Block A1: Iron - 3/4+ iron positivity; Reticulin - No significant reticulin fibrosis . Block B1: Iron - 3/4+ iron positivity with spicules present . To confirm the flow cytometry findings and to identify cells in a tissue architectural context, properly controlled immunohistochemical stains are performed. . Block A1: CD34 - No increased or abnormally localized CD34 positive blasts; CD117 - No increased CD117 positive blasts; MPO - Confirms the M:E ratio; Glycophorin A - Confirms the M:E ratio; CD31 - Normal number of megakaryocytes and increased monocytic cells. . Block B1: CD34 - No increased CD34 positive blasts; CD117 - No increased CD117 positive blasts; MPO - Confirms the M:E ratio; Glycophorin A - Confirms the M:E ratio; CD31 - Normal number of megakaryocytes and increased monocytic cells. . Flow Cytometry: Flow cytometric immunophenotypic analysis was performed at [facility]. The diagnosis is "predominance of myeloid elements with left shifted maturation and no increase in blasts." There are 0.3% myeloid blasts. There are 1% lymphocytes. Of the lymphocytes, there are 0.3% polyclonal B-cells. T-cells have a CD4/CD8 ratio of 18.4 (increased) and no other aberrant T-cell antigen expression. There are 97% neutrophilic cells and 0.6% monocytic cells. Please see separate flow cytometry report from [facility] ([id number]). . [facility] [address] [place] [address] PATHOLOGY RPT PROCEDURE Name: RYAN WISE Room #: 444-P DIS IN M.R.#: [id number] Admission: 10/01/19 Date of : 36 Discharge: 10/20/19 Report #: [id number] Path Case #: [id number] Cytogenetics: Cytogenetic chromosomal analysis is pending at [facility] ([id number]). (CLW/db; 10/19/2019) . 02 Pathologist provided ICD-10: D61.818, D64.9, D72.819, D69.6 . 02 CPT . 291865, 395072, 048901, 959847, 146351, 504347, 803539, 730179, 662331, W31525, M49078 Specimen Comment: A courtesy copy of this report has been sent to [phone] Specimen Comment: [phone], Specimen Comment: Report sent to ,DR RAMOS / DR BOCANEGRA Performed at: [address] [facility] [id number] [facility] [address], [place], [place] [address] MD Ammon Torres MD Phone: [phone] Performed at: [facility] [place] [address], [place], [place] [address] MD Pedro Briones MD Phone: [phone]
--- NOTE | 2019-12-21 15:02 | EKG ---
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 : 1940 Requested By: Christianne Mackay Order Number: [id number] MD: Bridger Christy Measurements Intervals [place] Rate: 128 P: 256 ND: 122 QRS: -32 QRSD: 115 T: 87 QT: 380 QTc: 555 Interpretive Statements Atrial flutter with 2:1 AV conduction Incomplete right bundle branch block Anteroseptal infarct, age indeterminate Baseline wander in lead(s) V6 Compared to ECG 09/16/2019 12:26:43 Atrial flutter has replaced sinus rhythm Electronically Signed On 10-02-2019 8:53:03 DOG BATHER by Bridger Christy [email or web address] <ELECTRONICALLY SIGNED> By: Bridger Christy MD, FAC 10/02/19 0853 1019 1019 Bridger Christy MD, FAC /EPI
--- NOTE | 2019-12-21 15:04 | EKG ---
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
--- NOTE | 2019-12-21 15:04 | EKG ---
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 : 1940 Requested By: Samy Boothe Order Number: [id number] MD: Tommie Cope Measurements Intervals [place] Rate: 115 P: [place]: QRS: -54 QRSD: 111 T: 147 QT: 374 QTc: 518 Interpretive Statements Atrial flutter LAD, consider left anterior fascicular block Anteroseptal infarct, age indeterminate Compared to ECG 10/01/2019 10:19:32 Electronically Signed On 10-11-2019 12:55:33 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
--- NOTE | 2019-12-21 15:04 | EKG ---
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
--- NOTE | 2019-12-21 15:05 | EKG ---
[address] [address] ELECTROCARDIOGRAM REPORT Name: RYAN SADLER Room #: 444-P [facility] IN M.R.#: [id number] Admission: 10/01/19 Attend Phys: Paulo Pérez MD Discharge: 10/20/19 Date of : 36 Report #: [id number] THIS REPORT FOR: //name// [facility] Test Date: 2019-10-10 Test Time: 23:30:14 Pat Name: RYAN SADLER Department: Room: 244 P Gender: M Measurement Operator: 0000 : 1940 Requested By: Thom Turk Order Number: [id number] MD: Tommie Cope Measurements Intervals [place] Rate: 60 P: [place]: 141 QRS: -31 QRSD: 130 T: 91 QT: 415 QTc: 415 Interpretive Statements Atrial-paced rhythm Nonspecific intraventricular conduction delay Anterior infarct, age indeterminate Compared to ECG 10/06/2019 09:56:05 Intraventricular conduction delay now present Myocardial infarct finding now present Atrial flutter no longer present T-wave abnormality no longer present Electronically Signed On 10-12-2019 15:00:56 STRICKLER ATTENDANT by Tommie Cope [email or web address] <ELECTRONICALLY SIGNED> By: Tommie Cope MD 10/12/191499 29 29 Tommie Cope MD /EPI
== END 2019-10-20 17:30 | disposition home or self-care (01) | DRG 840 ==
LOC: ER 10:06 → 3W 16:15 → ICU 10-08 14:41 → 3W 10-18 23:21 → 4S 10-19 22:29
PROVIDERS: Emergency Medicine; Internal Medicine; Internal Medicine Cardiovascular Disease; Internal Medicine Gastroenterology; Internal Medicine Hematology & Oncology; Internal Medicine Pulmonary Disease; Nurse Practitioner; Nurse Practitioner Acute Care; Nurse Practitioner Family; Specialist; ADMIT Hospitalist
PROC: 4B02XSZ Measurement of Cardiac Pacemaker, External Approach (ICD-10-PCS; principal; 2019-10-01)
PROC: 0D758ZZ Dilation of Esophagus, Via Natural or Artificial Opening Endoscopic (ICD-10-PCS; 2019-10-02)
PROC: 0DB58ZX Excision of Esophagus, Via Natural or Artificial Opening Endoscopic, Diagnostic (ICD-10-PCS; 2019-10-02)
PROC: 0DB68ZX Excision of Stomach, Via Natural or Artificial Opening Endoscopic, Diagnostic (ICD-10-PCS; 2019-10-02)
PROC: 0DJ08ZZ Inspection of Upper Intestinal Tract, Via Natural or Artificial Opening Endoscopic (ICD-10-PCS; 2019-10-05)
PROC: 0D758ZZ Dilation of Esophagus, Via Natural or Artificial Opening Endoscopic (ICD-10-PCS; 2019-10-05)
PROC: 30233N1 Transfusion of Nonautologous Red Blood Cells into Peripheral Vein, Percutaneous Approach (ICD-10-PCS; 2019-10-06)
PROC: 5A09357 Assistance with Respiratory Ventilation, Less than 24 Consecutive Hours, Continuous Positive Airway Pressure (ICD-10-PCS; 2019-10-08)
PROC: 5A09357 Assistance with Respiratory Ventilation, Less than 24 Consecutive Hours, Continuous Positive Airway Pressure (ICD-10-PCS; 2019-10-09)
PROC: 5A09357 Assistance with Respiratory Ventilation, Less than 24 Consecutive Hours, Continuous Positive Airway Pressure (ICD-10-PCS; 2019-10-10)
PROC: B5181ZA Fluoroscopy of Superior Vena Cava using Low Osmolar Contrast, Guidance (ICD-10-PCS; 2019-10-11)
PROC: 02HV33Z Insertion of Infusion Device into Superior Vena Cava, Percutaneous Approach (ICD-10-PCS; 2019-10-11)
PROC: B548ZZA Ultrasonography of Superior Vena Cava, Guidance (ICD-10-PCS; 2019-10-11)
PROC: 5A09357 Assistance with Respiratory Ventilation, Less than 24 Consecutive Hours, Continuous Positive Airway Pressure (ICD-10-PCS; 2019-10-11)
PROC: 5A09357 Assistance with Respiratory Ventilation, Less than 24 Consecutive Hours, Continuous Positive Airway Pressure (ICD-10-PCS; 2019-10-12)
PROC: 0BD38ZX Extraction of Right Main Bronchus, Via Natural or Artificial Opening Endoscopic, Diagnostic (ICD-10-PCS; 2019-10-12)
PROC: 30233R1 Transfusion of Nonautologous Platelets into Peripheral Vein, Percutaneous Approach (ICD-10-PCS; 2019-10-12)
PROC: 0BD78ZX Extraction of Left Main Bronchus, Via Natural or Artificial Opening Endoscopic, Diagnostic (ICD-10-PCS; 2019-10-12)
PROC: 0B9C8ZX Drainage of Right Upper Lung Lobe, Via Natural or Artificial Opening Endoscopic, Diagnostic (ICD-10-PCS; 2019-10-12)
PROC: 5A09357 Assistance with Respiratory Ventilation, Less than 24 Consecutive Hours, Continuous Positive Airway Pressure (ICD-10-PCS; 2019-10-13)
PROC: 5A09357 Assistance with Respiratory Ventilation, Less than 24 Consecutive Hours, Continuous Positive Airway Pressure (ICD-10-PCS; 2019-10-14)
PROC: 07DR3ZX Extraction of Iliac Bone Marrow, Percutaneous Approach, Diagnostic (ICD-10-PCS; 2019-10-15)
PROC: 5A09357 Assistance with Respiratory Ventilation, Less than 24 Consecutive Hours, Continuous Positive Airway Pressure (ICD-10-PCS; 2019-10-15)
PROC: 5A09357 Assistance with Respiratory Ventilation, Less than 24 Consecutive Hours, Continuous Positive Airway Pressure (ICD-10-PCS; 2019-10-16)
PROC: 5A09357 Assistance with Respiratory Ventilation, Less than 24 Consecutive Hours, Continuous Positive Airway Pressure (ICD-10-PCS; 2019-10-17)
DX: C93.10 Chronic myelomonocytic leukemia not having achieved remission (principal); J69.0 Pneumonitis due to inhalation of food and vomit; E43 Unspecified severe protein-calorie malnutrition; K29.71 Gastritis, unspecified, with bleeding; J96.01 Acute respiratory failure with hypoxia; N17.9 Acute kidney failure, unspecified; B37.0 Candidal stomatitis; C18.9 Malignant neoplasm of colon, unspecified; D62 Acute posthemorrhagic anemia; I48.92 Unspecified atrial flutter; D68.59 Other primary thrombophilia; D61.818 Other pancytopenia; I82.622 Acute embolism and thrombosis of deep veins of left upper extremity; I12.9 Hypertensive chronic kidney disease with stage 1 through stage 4 chronic kidney disease, or unspecified chronic kidney disease; N18.3 Chronic kidney disease, stage 3 (moderate); E78.00 Pure hypercholesterolemia, unspecified; K21.9 Gastro-esophageal reflux disease without esophagitis; E11.22 Type 2 diabetes mellitus with diabetic chronic kidney disease; R68.81 Early satiety; E78.5 Hyperlipidemia, unspecified; F39 Unspecified mood [affective] disorder; E11.51 Type 2 diabetes mellitus with diabetic peripheral angiopathy without gangrene; R13.10 Dysphagia, unspecified; F32.9 Major depressive disorder, single episode, unspecified; I48.0 Paroxysmal atrial fibrillation; M10.9 Gout, unspecified; E87.6 Hypokalemia; R62.7 Adult failure to thrive; D63.8 Anemia in other chronic diseases classified elsewhere; K22.2 Esophageal obstruction; R32 Unspecified urinary incontinence; K31.89 Other diseases of stomach and duodenum; Y95 Nosocomial condition; I95.9 Hypotension, unspecified; Z66 Do not resuscitate; Z79.899 Other long term (current) drug therapy; Z79.84 Long term (current) use of oral hypoglycemic drugs; Z88.0 Allergy status to penicillin; Z95.0 Presence of cardiac pacemaker
CPT/HCPCS: 10078; 10102; 10879; 62110; 62900; 70005; 85076